=== PATIENT | male | born 1945 | race Caucasian/White ===

== ENCOUNTER 2017-04-14 23:00 | Emergency (ER) | payer BC ==
[~2017-04-14] VITALS: Ht 177.8 cm; Wt 97.3 kg
[~2017-04-14 23:00] MED LIST: AMLO-110 PO; CMD3 PO; DESM0.1T8 PO; DUTA0.5C PO; LEVO75TA5 PO; MNC50 PO; OLAN-80 PO; PRD/1 PO; TNR25 PO
[2017-04-14] MEDS ORDERED: SODIUM CHLORIDE 0.9% 1000ML 1,000 ML IV STA (23:25)
[2017-04-14] MEDS ORDERED: ONDANSETRON INJ 2 MG/ML 2 ML VIAL IV STA (23:25)
--- NOTE | 2017-04-14 23:25 | EMERGENCY ROOM VISIT NOTE ---
History Report prepared by Stanley: Bob Genao Under the Supervision of: Dr. Giorgi Leblanc D.O. First contact with patient: 23:16 Chief Complaint: NAUSEA Stated Complaint: NAUSEA- WEAKNESS History of Present Illness The patient is a 71 year old male who presents to the Emergency Room with complaints of persistent nausea since 0400 this morning. The patient started vomiting and having diarrhea around 0630. He had about 4-5 episodes of diarrhea. The patient became so weak he had to sit down on the floor. He did not pass out, fall, or injure himself. The patient is still feeling very generally weak. The patient does not have any sick contacts. He denies recent travel. The patient is currently on antibiotics. He had Minocycline and Tetracycline at 0300 this morning. Source of History: patient Onset: 0400 this morning Position: other (GI) Quality: other (nausea) Timing: other (persistent) Associated Symptoms: + diarrhea, + vomiting, + weakness Review of Systems See HPI for pertinent positives and negatives. A total of ten systems were reviewed and were otherwise negative. Past Medical & Surgical Medical Problems: (1) Anxiety State Nos (2) Asthma (3) Asthma, Unspecified (4) Atrial fibrillation (5) Cyst Of Kidney, Acquired (6) Diabetes insipidus (7) Dysthymic Disorder (8) granulomatous erhlichisosis (9) Hypertension Nos (10) Irritable Colon (11) Left leg DVT (12) Lyme disease (13) Pituitary dysfunction (14) Status post stereotactic radiosurgery Surgical Problems: (1) History of nasal surgery Family History Cancer Diabetes mellitus GRANDMOTHER Hypertension Lung disease Social History Smoking Status: Never Smoker Alcohol Use: none Drug Use: none Marital Status: Housing Status: lives with family Occupation Status: retired Current/Historical Medications Scheduled Amlodipine (Norvasc), 0.5 TAB PO DAILY Apixaban (Eliquis), 2.5 MG PO BID Atenolol (Tenormin), 6.25 MG PO DAILY Calcitriol (Rocaltrol Cap), 0.25 MCG PO DAILY Calcium Carbonate-Vitamin D (Calcium + D3 600-200 mg-Unit), 1 TAB PO DAILY Desmopressin Acetate (Desmopressin Acetate), 0.25 TAB PO HS Dutasteride (Avodart), 0.5 MG PO DAILY Levothyroxine Sodium (Levothyroxine Sodium), 75 MCG PO DAILY Minocycline HCl (Minocycline HCl), 50 MG PO HS Olanzapine (Zyprexa), 0.6 MG PO HS Prednisone (Prednisone), 5 MG PO DAILY Probiotic Product (Probiotic), 1 CAP PO DAILY Tetracycline (Sumycin), 250 MG PO HS Allergies Coded Allergies: Ibuprofen (Verified Allergy, Mild, flushed, itchy, 04/23/16) Physical Exam Vital Signs Date Time Temp Pulse Resp B/P Pulse Ox O2 Delivery O2 Flow Rate FiO2 04/15/17 01:52 37.4 74 18 131/63 97 Room Air 04/14/17 23:38 97 Room Air 04/14/17 23:14 37.5 100 20 99/66 96 Room Air Physical Exam GENERAL: Awake, alert, well-appearing, in no distress HENT: Normocephalic, atraumatic. Oropharynx unremarkable. EYES: Normal conjunctiva. Sclera non-icteric. NECK: Supple. No nuchal rigidity. FROM. No JVD. RESPIRATORY: Clear to auscultation. CARDIAC: Regular rate, normal rhythm. Extremities warm and well perfused. Pulses equal. ABDOMEN: Soft, non-distended. No tenderness to palpation. No rebound or guarding. Small umbilical hernia. RECTAL: Deferred. MUSCULOSKELETAL: Chest examination reveals no tenderness. The back is symmetrical on inspection without obvious abnormality. There is no CVA tenderness to palpation. No joint edema. LOWER EXTREMITIES: Calves are equal size bilaterally and non-tender. No edema. No discoloration. NEURO: Normal sensorium. No sensory or motor deficits noted. SKIN: No rash or jaundice noted. Medical Decision & Procedures Laboratory Results 04/14/17 23:49 Red Blood Count 5.22, Mean Corpuscular Volume 91.8, Mean Corpuscular Hemoglobin 30.7, Mean Corpuscular Hemoglobin Concent 33.4, Mean Platelet Volume 11.3, Neutrophils (%) (Auto) 90.0, Lymphocytes (%) (Auto) 2.2, Monocytes (%) (Auto) 7.4, Eosinophils (%) (Auto) 0.0, Basophils (%) (Auto) 0.1, Neutrophils # (Auto) 11.63, Lymphocytes # (Auto) 0.28, Monocytes # (Auto) 0.95, Eosinophils # (Auto) 0.00, Basophils # (Auto) 0.01 04/14/17 23:49 Test 04/14/17 23:49 White Blood Count 12.91 K/uL (4.8-10.8) Red Blood Count 5.22 M/uL (4.7-6.1) Hemoglobin 16.0 g/dL (14.0-18.0) Hematocrit 47.9 % (42-52) Mean Corpuscular Volume 91.8 fL (80-100) Mean Corpuscular Hemoglobin 30.7 pg (25-34) Mean Corpuscular Hemoglobin Concent 33.4 g/dl (32-36) Platelet Count 219 K/uL (130-400) Mean Platelet Volume 11.3 fL (7.4-10.4) Neutrophils (%) (Auto) 90.0 % Lymphocytes (%) (Auto) 2.2 % Monocytes (%) (Auto) 7.4 % Eosinophils (%) (Auto) 0.0 % Basophils (%) (Auto) 0.1 % Neutrophils # (Auto) 11.63 K/uL (1.4-6.5) Lymphocytes # (Auto) 0.28 K/uL (1.2-3.4) Monocytes # (Auto) 0.95 K/uL (0.11-0.59) Eosinophils # (Auto) 0.00 K/uL (0-0.5) Basophils # (Auto) 0.01 K/uL (0-0.2) RDW Standard Deviation 44.1 fL (36.4-46.3) RDW Coefficient of Variation 13.1 % (11.5-14.5) Immature Granulocyte % (Auto) 0.3 % Immature Granulocyte # (Auto) 0.04 K/uL (0.00-0.02) Anion Gap 9.0 mmol/L (3-11) Est Creatinine Clear Calc Drug Dose 47.3 ml/min Estimated GFR () 46.3 Estimated GFR (Non- 40.0 BUN/Creatinine Ratio 12.7 (10-20) Calcium Level 8.3 mg/dl (8.5-10.1) Magnesium Level 1.9 mg/dl (1.8-2.4) Total Bilirubin 0.8 mg/dl (0.2-1) Direct Bilirubin 0.2 mg/dl (0-0.2) Aspartate Amino Transf (AST/SGOT) 25 U/L (15-37) Alanine Aminotransferase (ALT/SGPT) 43 U/L (12-78) Alkaline Phosphatase 111 U/L (45-117) Total Protein 7.0 gm/dl (6.4-8.2) Albumin 3.1 gm/dl (3.4-5.0) Lipase 236 U/L (73-393) Laboratory results reviewed by me Medications Administered Medications (Trade) Dose Ordered Sig/Alexia Route Start Time Stop Time Status Last Admin Dose Admin Sodium Chloride (Nss 1000ml) 1,000 ml @ 999 mls/hr Q1H1M STAT IV 04/14/17 23:25 04/15/17 00:25 DC 04/14/17 23:25 999 MLS/HR Ondansetron HCl (Zofran Inj) 4 mg NOW STAT IV 04/14/17 23:25 04/14/17 23:27 DC 04/14/17 23:25 4 MG Ondansetron HCl 4 mg 4 mg NOW STAT IV 04/15/17 01:25 04/15/17 01:27 DC 04/15/17 01:36 4 MG Sodium Chloride (Nss 1000ml) 1,000 ml @ 999 mls/hr Q1H1M STAT IV 04/15/17 01:25 04/15/17 02:25 04/15/17 01:36 999 MLS/HR ECG Indication: nausea Rate (beats per minute): 85 Rhythm: normal sinus Findings: no acute ischemic change, other (normal intervals, normal axis) ED Course 2320: The patient was evaluated in room C9. A complete history and physical exam was performed. 2325: NSS 1000 ml @ 999 mls/hr, Zofran 4 mg IV. 0123: The patient is feeling better, currently in no distress. He will get another liter of fluid and some Zofran. 0125: Zofran 4 mg IV, NSS 1000 ml @ 999 mls/hr. 0155: I reevaluated the patient. Discussed results and discharge instructions: He verbalized understanding and agreement. The patient is ready for discharge. Medical Decision Differential diagnosis includes gastroenteritis, colitis, metabolic derangement , dehydration. Resting in no distress, is much improved on repeat examination of discussed the evaluation with the patient patient's at bedside. Impression Primary Impression: Vomiting and diarrhea Scribe Attestation The scribe's documentation has been prepared under my direction and personally reviewed by me in its entirety. I confirm that the note above accurately reflects all work, treatment, procedures, and medical decision making performed by me. Departure Information Dispostion Home / Self-Care Prescriptions Ondasetron Odt (ZOFRAN ODT) 4 Mg Tab 4 MG SL Q6H for Nausea, #6 TAB Prov: Giorgi Leblanc, DO 04/15/17 Referrals Bravo Rosenbaum III, M.D. (PCP) Forms HOME CARE DOCUMENTATION FORM, IMPORTANT VISIT INFORMATION Patient Instructions ED Nausea Vomiting, My [facility]
[2017-04-14 23:38] VITALS: O2SAT 97; Ht 177.8 cm; Wt 97.3 kg
[2017-04-14] MEDS ORDERED: TETR250C3 PO (23:48)
[2017-04-14] MEDS ORDERED: PRED-301 PO (23:57)
[2017-04-14] MEDS ORDERED: APIX1TAB PO (23:59)
[2017-04-15] MEDS ORDERED: CALC0.2510 PO
[2017-04-15] MEDS ORDERED: ATEN-173 PO (00:02)
[2017-04-15] MEDS ORDERED: CALC-388 PO (00:07)
[2017-04-15 00:08] LABS: BASO % 0.1 %; BASO ABS # 0.01 K/uL (0-0.2); COMPLETE YES; HEMATOCRIT 47.9 % (42-52); IG% 0.3 %; LYMPH % 2.2 %; LYMPH ABS # 0.28 K/uL (1.2-3.4); MEAN CELL VOLUME 91.8 fL (80-100); MEAN CORPUSCULAR HEMOGLOBIN 30.7 pg (25-34); MEAN CORPUSCULAR HGB CONC 33.4 g/dl (32-36); MEAN PLATELET VOLUME 11.3 fL (7.4-10.4); MONO % 7.4 %; PLATELET COUNT 219 K/uL (130-400); RED BLOOD COUNT 5.22 M/uL (4.7-6.1); WHITE BLOOD COUNT 12.91 K/uL (4.8-10.8)
[2017-04-15] MEDS ORDERED: MISCCAP80 PO (00:08)
[2017-04-15 00:32] LABS: BUN/CREATININE RATIO 12.7 (10-20); CALCIUM 8.3 mg/dl (8.5-10.1); CREATININE 1.7 mg/dl (0.60-1.40); MAGNESIUM 1.9 mg/dl (1.8-2.4)
[2017-04-15] MEDS ORDERED: ONDANSETRON INJ 2 MG/ML 2 ML VIAL IV STA (01:25)
[2017-04-15] MEDS ORDERED: SODIUM CHLORIDE 0.9% 1000ML 1,000 ML IV STA (01:25)
[2017-04-15 01:52] VITALS: TEMP 37.4
[2017-04-15] MEDS ORDERED: ONDA4TAB10 SL (02:16)
[2017-04-15 02:20] VITALS: BP 124/62; PULSE 72; O2SAT 98
[2017-06-24] MEDS ORDERED: ASPEC81 PO (10:19)
[2017-06-24] MEDS ORDERED: CRS10 PO (10:19)
[2017-06-24] MEDS ORDERED: TPRSR25 PO (10:19)
[2017-06-24] MEDS ORDERED: PLV75 PO (10:19)
== END 2017-04-15 02:20 | disposition home or self-care (01) ==
LOC: C.EDB 23:01 → C.EDA 04-15 02:20
DX: R11.10 Vomiting, unspecified (principal); R19.7 Diarrhea, unspecified; F41.9 Anxiety disorder, unspecified; J45.909 Unspecified asthma, uncomplicated; I48.91 Unspecified atrial fibrillation; E23.2 Diabetes insipidus; I10 Essential (primary) hypertension; Z86.718 Personal history of other venous thrombosis and embolism; Z80.9 Family history of malignant neoplasm, unspecified; Z83.3 Family history of diabetes mellitus; Z82.49 Family history of ischemic heart disease and other diseases of the circulatory system; Z83.6 Family history of other diseases of the respiratory system; Z79.52 Long term (current) use of systemic steroids; Z79.899 Other long term (current) drug therapy

== ENCOUNTER 2017-06-22 03:43 | Inpatient (IN) | payer BC, OTHER ==
[~2017-06-22] VITALS: Ht 177.8 cm; Wt 97.3 kg
[~2017-06-22 03:43] MED LIST changes: +APIX1TAB PO; +ATEN-173 PO; +CALC-388 PO; +CALC0.2510 PO; -CMD3 PO; +MISCCAP80 PO; +ONDA4TAB10 SL; -PRD/1 PO; +PRED-301 PO; +TETR250C3 PO; -TNR25 PO
--- NOTE | 2017-06-22 03:58 | EMERGENCY ROOM VISIT NOTE ---
History Report prepared by Stanley: Kenji Dawn Under the Supervision of: Dr. Alayna North D.O. First contact with patient: 03:48 Chief Complaint: CARDIAC ASSESSMENT Stated Complaint: CARDIAC ASSESSMENT History of Present Illness The patient is a 71 year old male who presents to the Emergency Room with complaints of chest pain that began at midnight and worsened around 0320 this morning, 30 minutes prior to arrival. The pains are resolved at this time. He received nitroglycerin via EMS prior to arrival, which alleviated the patient's symptoms. He no longer has any chest discomfort at this time. He denies any personal history of heart attack, or any history of heart problems. Source of History: patient Onset: 30 minutes [employer] Position: chest Timing: resolved Modifying Factors (Relieving): other (Nitroglycerin) Review of Systems See HPI for pertinent positives & negatives. A total of 10 systems reviewed and were otherwise negative. Past Medical & Surgical Medical Problems: (1) Anxiety State Nos (2) Asthma (3) Asthma, Unspecified (4) Atrial fibrillation (5) Chest pain (6) Cyst Of Kidney, Acquired (7) Diabetes insipidus (8) Dysthymic Disorder (9) granulomatous erhlichisosis (10) Hypertension Nos (11) Irritable Colon (12) Left leg DVT (13) Lyme disease (14) Pituitary dysfunction (15) Status post stereotactic radiosurgery Surgical Problems: (1) History of nasal surgery Ehrliciosis Family History Cancer Diabetes mellitus GRANDMOTHER Hypertension Lung disease Social History Smoking Status: Never Smoker Alcohol Use: none Drug Use: none Marital Status: Housing Status: lives with family Occupation Status: retired Current/Historical Medications Scheduled Amlodipine (Norvasc), 0.5 TAB PO DAILY Apixaban (Eliquis), 2.5 MG PO BID Atenolol (Tenormin), 6.25 MG PO DAILY Calcitriol (Rocaltrol Cap), 0.25 MCG PO DAILY Calcium Carbonate-Vitamin D (Calcium + D3 600-200 mg-Unit), 1 TAB PO DAILY Desmopressin Acetate (Desmopressin Acetate), 0.25 TAB PO HS Dutasteride (Avodart), 0.5 MG PO DAILY Levothyroxine Sodium (Levothyroxine Sodium), 75 MCG PO DAILY Minocycline HCl (Minocycline HCl), 50 MG PO HS Olanzapine (Zyprexa), 0.6 MG PO HS Prednisone (Prednisone), 5 MG PO DAILY Probiotic Product (Probiotic), 1 CAP PO DAILY Tetracycline (Sumycin), 250 MG PO HS Allergies Coded Allergies: Ibuprofen (Verified Allergy, Mild, flushed, itchy, 06/22/17) Physical Exam Vital Signs Date Time Temp Pulse Resp B/P (MAP) Pulse Ox O2 Delivery O2 Flow Rate FiO2 06/22/17 05:48 53 17 97 06/22/17 05:43 52 15 98 06/22/17 05:31 118/64 06/22/17 05:28 54 16 97 06/22/17 05:13 58 15 98 06/22/17 05:01 106/60 06/22/17 04:58 58 15 97 06/22/17 04:53 60 14 97 06/22/17 04:43 64 18 96 06/22/17 04:33 63 20 112/61 95 06/22/17 04:28 62 18 98 06/22/17 04:13 66 18 98 06/22/17 04:05 36.9 67 19 121/73 98 Room Air 06/22/17 04:01 121/73 06/22/17 03:58 71 23 100 06/22/17 03:53 70 18 98 06/22/17 03:52 69 06/22/17 03:49 124/75 Physical Exam HEENT: Head - normocephalic and atraumatic Pupils are equal, round, and reactive to light. Extraocular eye muscles are intact, and sclera are anicteric. Nose - moist nasal mucosa without discharge. Mouth - moist buccal mucosa. Oropharynx is nonerythematous and there is no tonsillar exudate or edema noted. Neck: Supple; no JVD, nuchal rigidity, cervical lymphadenopathy, or auscultated bruits. Heart: Regular rate and rhythm. There is a normal S1 and S2 with no murmurs, clicks, or gallops appreciated. Lungs: Clear to auscultation bilaterally with no wheezes, rales, or rhonchi. Abdomen: Soft, completely nontender, nondistended, with good bowel sounds. There are no palpable pulsatile masses or hepatosplenomegaly. There is no guarding, rigidity, or rebound noted. Extremities: No evidence of cyanosis, clubbing, or edema. There are easily palpable peripheral pulses. Skin: warm and dry with good turgor and no rashes. Medical Decision & Procedures ER Provider Diagnostic Interpretation: Radiology results as stated below per my review and the radiologist's interpretation: CHEST X-RAY PORTABLE: Elevated left hemidiaphragm. There is curvature of the spine. No obvious infiltrate. Unchanged from 03/2016. Laboratory Results 06/22/17 03:35 Red Blood Count 5.34, Mean Corpuscular Volume 91.9, Mean Corpuscular Hemoglobin 30.1, Mean Corpuscular Hemoglobin Concent 32.8, Mean Platelet Volume 11.3, Neutrophils (%) (Auto) 80.3, Lymphocytes (%) (Auto) 11.3, Monocytes (%) (Auto) 6.6, Eosinophils (%) (Auto) 1.1, Basophils (%) (Auto) 0.4, Neutrophils # (Auto) 9.79, Lymphocytes # (Auto) 1.38, Monocytes # (Auto) 0.81, Eosinophils # (Auto) 0.13, Basophils # (Auto) 0.05 06/22/17 04:00 Test 06/22/17 03:35 06/22/17 04:00 White Blood Count 12.20 K/uL (4.8-10.8) Red Blood Count 5.34 M/uL (4.7-6.1) Hemoglobin 16.1 g/dL (14.0-18.0) Hematocrit 49.1 % (42-52) Mean Corpuscular Volume 91.9 fL (80-100) Mean Corpuscular Hemoglobin 30.1 pg (25-34) Mean Corpuscular Hemoglobin Concent 32.8 g/dl (32-36) Platelet Count 263 K/uL (130-400) Mean Platelet Volume 11.3 fL (7.4-10.4) Neutrophils (%) (Auto) 80.3 % Lymphocytes (%) (Auto) 11.3 % Monocytes (%) (Auto) 6.6 % Eosinophils (%) (Auto) 1.1 % Basophils (%) (Auto) 0.4 % Neutrophils # (Auto) 9.79 K/uL (1.4-6.5) Lymphocytes # (Auto) 1.38 K/uL (1.2-3.4) Monocytes # (Auto) 0.81 K/uL (0.11-0.59) Eosinophils # (Auto) 0.13 K/uL (0-0.5) Basophils # (Auto) 0.05 K/uL (0-0.2) RDW Standard Deviation 43.8 fL (36.4-46.3) RDW Coefficient of Variation 13.0 % (11.5-14.5) Immature Granulocyte % (Auto) 0.3 % Immature Granulocyte # (Auto) 0.04 K/uL (0.00-0.02) Prothrombin Time 10.4 SECONDS (9.0-12.0) Prothromb Time International Ratio 1.0 (0.9-1.1) Activated Partial Thromboplast Time 27.4 SECONDS (21.0-31.0) Partial Thromboplastin Ratio 1.1 Anion Gap 7.0 mmol/L (3-11) Est Creatinine Clear Calc Drug Dose 48.5 ml/min Estimated GFR () 46.3 Estimated GFR (Non- 40.0 BUN/Creatinine Ratio 14.7 (10-20) Calcium Level 8.2 mg/dl (8.5-10.1) Total Bilirubin 0.3 mg/dl (0.2-1) Aspartate Amino Transf (AST/SGOT) 30 U/L (15-37) Alanine Aminotransferase (ALT/SGPT) 50 U/L (12-78) Alkaline Phosphatase 91 U/L (45-117) Total Creatine Kinase 55 U/L (39-308) Creatine Kinase MB 1.0 ng/ml (0.5-3.6) Creatine Kinase MB Ratio 1.8 (0-3.0) Troponin I 0.040 ng/ml (0-0.045) Total Protein 6.4 gm/dl (6.4-8.2) Albumin 2.9 gm/dl (3.4-5.0) Globulin 3.5 gm/dl (2.5-4.0) Albumin/Globulin Ratio 0.8 (0.9-2) Thyroid Stimulating Hormone (TSH) 0.237 uIu/ml (0.300-4.500) Laboratory results per my review. ECG Indication: chest pain Rate (beats per minute): 73 Findings: no acute ischemic change, no ectopy ED Course 0351: Past medical records reviewed. The patient was evaluated in room B2. A complete history and physical exam was performed. A twelve-lead EKG was obtained. A portable chest x-ray was obtained as described above. I did review the EKGs that were performed in the field. 0503: I reevaluated the patient at this time. He has not experienced any return of his chest pain. 0535: I discussed the case with Dr. Luigi Baig at this time. He will evaluate the patient at this time. Medical Decision The patient is a 71 year old male who presents to the Emergency Department for chest pain. Differential Diagnosis includes; Unstable angina, STEMI, n-STEMI, ACS, GERD. Laboratory Results were reviewed and show; White count of 12.2, Stable hemoglobin and hematocrit, BUN of 25, creatinine of 1.7 which is baseline, glucose of 240, TSH of 0.237, troponin of 0.040, and albumin of 2.9. This is a 71-year-old male patient who presents to emergency department after having an episode of severe chest pain. Upon EMS arrival, the patient had a twelve-lead EKG done at his house which showed anterior ST segment elevation. He was having chest pain at that time. He did receive sublingual nitroglycerin which relieved both the chest pain and the EKG changes. This is quite concerning for acute coronary syndrome. I discussed the case with the [facility] and they will evaluate for further management. Medication Reconcilliation Current Medication List: was personally reviewed by me Blood Pressure Screening Patient's blood pressure: Normal blood pressure Consults Time Called: [phone] Consulting Physician: Dr. Luigi Baig Returned Call: [phone] I discussed the case with Dr. Luigi Baig at this time. He will evaluate the patient at this time. Impression Primary Impression: Acute coronary syndrome Scribe Attestation The scribe's documentation has been prepared under my direction and personally reviewed by me in its entirety. I confirm that the note above accurately reflects all work, treatment, procedures, and medical decision making performed by me. Departure Information Dispostion Being Evaluated By Hospitalist Referrals Bravo Rosenbaum III, M.D. (PCP) Patient Instructions My [facility]
[2017-06-22 04:11] LABS: BASO % 0.4 %; BASO ABS # 0.05 K/uL (0-0.2); COMPLETE YES; EOS % 1.1 %; HEMATOCRIT 49.1 % (42-52); IG% 0.3 %; LYMPH % 11.3 %; LYMPH ABS # 1.38 K/uL (1.2-3.4); MEAN CELL VOLUME 91.9 fL (80-100); MEAN CORPUSCULAR HEMOGLOBIN 30.1 pg (25-34); MEAN CORPUSCULAR HGB CONC 32.8 g/dl (32-36); MEAN PLATELET VOLUME 11.3 fL (7.4-10.4); MONO % 6.6 %; NEUT % 80.3 %; PLATELET COUNT 263 K/uL (130-400); RED BLOOD COUNT 5.34 M/uL (4.7-6.1)
[2017-06-22 04:29] LABS: BUN/CREATININE RATIO 14.7 (10-20); CALCIUM 8.2 mg/dl (8.5-10.1); CREATININE 1.7 mg/dl (0.60-1.40); POTASSIUM 4.4 mmol/L (3.5-5.1)
[2017-06-22 04:40] LABS: ALB/GLOB RATIO 0.8 (0.9-2); CKMB/CK RATIO 1.8 (0-3.0); THYROID STIMULATING HORMONE 0.237 uIu/ml (0.300-4.500)
[2017-06-22] MEDS ORDERED: MoRPHine SULFATE 2 MG/ML CARP IV PRN (06:00)
[2017-06-22] MEDS ORDERED: ACETAMINOPHEN 325 MG TAB PO PRN (06:00)
[2017-06-22] MEDS ORDERED: ONDANSETRON INJ 2 MG/ML 2 ML VIAL IV PRN (06:00)
[2017-06-22] MEDS ORDERED: NITROGLYCERIN 0.4 MG SL PER TAB CHARGE SL PRN (06:00)
--- NOTE | 2017-06-22 06:02 | History and Physical ---
History & Physical Date & Time of Service: Jun 22, 2017 at 05:54 . Chief Complaint: chest pain . Primary Care Physician: Bravo Rosenbaum III, M.D. . History of Present Illness Source: patient, clinic records, hospital records 71 [address] by [address]. Rosenbaum for Family Medicine, Dr. Sneed for Cardiology, Dr. Leo for chronic Lyme disease. History of paroxysmal atrial fibrillation, hypertension, and other problems noted below. 2 nights prior to admission he developed chest pain after eating supper and lying down in supine position. Chest pain described as moderate substernal pressure that did not radiate. No associated palpitations, SOB, N, V, diaphoresis, etc. Pt felt that he was probably experiencing indigestion. He did not take any medications for the discomfort. Tonight around 0300 he experienced much more severe CP. CP described as substernal pressure radiating across his anterior chest, severity = 8/10. [place] nauseated. No palpitations, SOB, vomiting. [place] very weak. Called EMS. EKG by them showed anterior ST elevation and inferior ST depression. Received O2, ASA, NTG. Chest pain resolved. Repeat EKG after NTG showed resolution of ST changes. Patient brought to ED and remained pain-free after arrival. . 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 Family History Cancer Diabetes mellitus GRANDMOTHER Hypertension Lung disease Social History Smoking Status: Never Smoker Alcohol Use: none Marital Status: Housing status: lives with family Occupational Status: retired Immunizations History of Influenza Vaccine: Yes History of Pneumococcal: Yes Multi-Drug Resistant Organisms History of MDRO: No Allergies Coded Allergies: Ibuprofen (Verified Allergy, Mild, flushed, itchy, 06/22/17) Home Medications Scheduled Amlodipine (Norvasc), 2.5 MG PO HS Amoxicillin (Amoxil), 250 MG PO DAILY Apixaban (Eliquis), 1.25 MG PO BID Atenolol (Tenormin), 6.25 MG PO HS Calcitriol (Rocaltrol Cap), 0.25 MCG PO DAILY Calcium Carbonate-Vitamin D (Calcium + D3 600-200 mg-Unit), 1 TAB PO DAILY Desmopressin Acetate (Desmopressin Acetate), 0.25 TAB PO HS Dutasteride (Avodart), 0.5 MG PO DAILY Levothyroxine Sodium (Levothyroxine Sodium), 75 MCG PO DAILY Minocycline HCl (Minocycline HCl), 50 MG PO HS Olanzapine (Zyprexa), 0.625 MG PO HS Prednisone (Prednisone), 5 MG PO DAILY Probiotic Product (Probiotic), 1 CAP PO DAILY Tetracycline (Sumycin), 250 MG PO HS Review of Systems Constitutional: No fever, No weight loss Eyes: No worsening of vision, No diplopia ENT: + nasal symptoms (chronic nasal / sinus congestion), No sore throat Respiratory: No cough, No wheezing, No shortness of breath Cardiovascular: + problem reported (as noted above in HPI) Abdomen: + nausea, No pain, No vomiting, No diarrhea, No GI bleeding Musculoskeletal: No joint pain, No muscle pain Genitourinary - Male: No hematuria, No dysuria Neurologic: + problem reported (left frontal headache attributed to sinus congestion), No weakness Endocrine: + excessive urination (chronic due to DI) Hematologic / Lymphatic: No abnormal bleeding/bruising, No swollen lymph nodes Integumentary: + rash (ECM from Lyme disease resolved with treatment), No new/ changing skin lesions Physical Exam Vital Signs Date Time Temp Pulse Resp B/P (MAP) Pulse Ox O2 Delivery O2 Flow Rate FiO2 06/22/17 05:43 52 15 98 06/22/17 05:31 118/64 06/22/17 05:28 54 16 97 06/22/17 05:13 58 15 98 06/22/17 05:01 106/60 06/22/17 04:58 58 15 97 06/22/17 04:53 60 14 97 06/22/17 04:43 64 18 96 06/22/17 04:33 63 20 112/61 95 06/22/17 04:28 62 18 98 06/22/17 04:13 66 18 98 06/22/17 04:05 36.9 67 19 121/73 98 Room Air 06/22/17 04:01 121/73 06/22/17 03:58 71 23 100 06/22/17 03:53 70 18 98 06/22/17 03:52 69 06/22/17 03:49 124/75 General Appearance: WD/WN, no apparent distress Head: normocephalic, atraumatic Eyes: normal inspection, PERRL, EOMI, sclerae normal ENT: normal ENT inspection, hearing grossly normal, pharynx normal Neck: supple, no adenopathy, thyroid normal, trachea midline Respiratory/Chest: lungs clear (to A&P), no respiratory distress, no accessory muscle use Cardiovascular: regular rate, rhythm, no edema, no gallop, no JVD, no murmur, normal peripheral pulses (radial and pedal pulses intact and symmetric), + pertinent finding (carotid pulses symmetric) Abdomen/GI: normal bowel sounds, non tender, soft, no organomegaly, no pulsatile mass Extremities/Musculoskelatal: normal inspection, no calf tenderness, no pedal edema Neurologic/Psych: 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 II-XII nml as tested (PERRL, no dysarthria, no facial palsy), no motor/sensory deficits (motor upper and lower extr 5/5), alert, normal mood/affect, oriented x 3 Skin: normal color, warm/dry, no rash Lymphatic: no adenopathy (cervical) Diagnostics Laboratory Results Results Past 24 Hours Test 06/22/17 03:35 06/22/17 04:00 06/22/17 05:00 Range/Units White Blood Count 12.20 4.8-10.8 K/uL Red Blood Count 5.34 4.7-6.1 M/uL Hemoglobin 16.1 14.0-18.0 g/dL Hematocrit 49.1 42-52 % Mean Corpuscular Volume 91.9 80-100 fL Mean Corpuscular Hemoglobin 30.1 25-34 pg Mean Corpuscular Hemoglobin Concent 32.8 32-36 g/dl Platelet Count 263 130-400 K/uL Mean Platelet Volume 11.3 7.4-10.4 fL Neutrophils (%) (Auto) 80.3 % Lymphocytes (%) (Auto) 11.3 % Monocytes (%) (Auto) 6.6 % Eosinophils (%) (Auto) 1.1 % Basophils (%) (Auto) 0.4 % Neutrophils # (Auto) 9.79 1.4-6.5 K/uL Lymphocytes # (Auto) 1.38 1.2-3.4 K/uL Monocytes # (Auto) 0.81 0.11-0.59 K/uL Eosinophils # (Auto) 0.13 0-0.5 K/uL Basophils # (Auto) 0.05 0-0.2 K/uL RDW Standard Deviation 43.8 36.4-46.3 fL RDW Coefficient of Variation 13.0 11.5-14.5 % Immature Granulocyte % (Auto) 0.3 % Immature Granulocyte # (Auto) 0.04 0.00-0.02 K/uL Sodium Level 141 136-145 mmol/L Potassium Level 4.4 3.5-5.1 mmol/L Chloride Level 109 98-107 mmol/L Carbon Dioxide Level 25 21-32 mmol/L Anion Gap 7.0 3-11 mmol/L Blood Urea Nitrogen 25 7-18 mg/dl Creatinine 1.70 0.60-1.40 mg/dl Est Creatinine Clear Calc Drug Dose 48.5 ml/min Estimated GFR () 46.3 Estimated GFR (Non- 40.0 BUN/Creatinine Ratio 14.7 10-20 Random Glucose 240 70-99 mg/dl Calcium Level 8.2 8.5-10.1 mg/dl Total Bilirubin 0.3 0.2-1 mg/dl Aspartate Amino Transf (AST/SGOT) 30 15-37 U/L Alanine Aminotransferase (ALT/SGPT) 50 12-78 U/L Alkaline Phosphatase 91 45-117 U/L Total Creatine Kinase 55 39-308 U/L Creatine Kinase MB 1.0 0.5-3.6 ng/ml Creatine Kinase MB Ratio 1.8 0-3.0 Troponin I 0.040 0-0.045 ng/ml Total Protein 6.4 6.4-8.2 gm/dl Albumin 2.9 3.4-5.0 gm/dl Globulin 3.5 2.5-4.0 gm/dl Albumin/Globulin Ratio 0.8 0.9-2 Thyroid Stimulating Hormone (TSH) 0.237 0.300-4.500 uIu/ml Diagnostic Radiology Portable chest x-ray reviewed by the undersigned demonstrates borderline cardiomegaly, elevated left hemidiaphragm (noted in 2014), no acute changes. Formal report by Radiology pending. . EKG EKG performed by EMS at 032 before NTG reviewed and demonstrated NSR at 68 / minute, [address] depression III, aVF and 1-[address] elevation V1-V2. EKG performed by EMS at 033 after NTG reviewed and demonstrated baseline artifact, NSR at 72 / minute, resolution of inferior and anterior ST changes.. . EKG performed in ED at 034 reviewed and demonstrated NSR at 73 / minute, no significant ST deviation, biphasic T-waves V2. . Impression Assessment and Plan CHEST PAIN Clinically, chest pain over last 2 days could be of cardiac or GI etiology. Episode this morning, however, was severe, associated with EKG changes, and relieved by NTG. Pain-free in ED. First troponin negative. Check repeat cardiac markers @ 4 hours with lipid profile. Aspirin administered by EMS. Continue atenolol with hold parameters. Check rest echo. Consult Cardiology. PAROXYSMAL ATRIAL FIB Currently in NSR. Continue atenolol and apixaban- dosing per Cardiology. HYPERTENSION Continue atenolol and amlodipine. PANHYPOPIT Hypopituitarism with adrenal insufficiency, hypothyroidism, DI. Continue prednisone, levothyroxine, DDAVP. Parenteral steroids PRN for hemodynamic instability or major procedures. HYPERGLYCEMIA Random blood sugar 240 in ED. On low dose prednisone for panhypopit / adrenal insufficiency. No hx of DM. Check Hgb A1C. Check f/u FBS in 24 hours. Follow. CHRONIC LYME DISEASE / EHRLICHIOSIS Continue usual regimen as recommended. BPH Continue dutasteride. VTE PROPHYLAXIS Continue apixaban. RESUSCITATION STATUS Discussed with patient. He has a living will. He would like resuscitation attempted in the event of a cardiopulmonary arrest if there is a reasonable chance of a meaningful recovery, but does not want prolonged extraordinary measures if prognosis is poor. Therefore, code status = "Level 1" (full resuscitation). DISPOSITION Admit to Telemetry Unit. Expected discharge to home. Family Medicine follow-up with Dr. Rosenbaum. Cardiology follow-up with Dr. Sneed. . VTE Prophylaxis VTE Risk Assessment Done? Y/N: Yes Risk Level: Moderate Given or contraindicated: Other Anticoagulation (apixaban)
[2017-06-22 06:41] LABS: PARTIAL THROMBOPLASTIN RATIO 1.1; PROTHROMBIN TIME (PATIENT) 10.4 SECONDS (9.0-12.0)
[2017-06-22 07:00] VITALS: BP 136/76; PULSE 59; TEMP 36.7; O2SAT 98; BMI 31.1
--- NOTE | 2017-06-22 07:15 | DIAGNOSTIC IMAGING REPORT ---
SINGLE VIEW CHEST CLINICAL HISTORY: Atypical chest pain. FINDINGS: An AP, portable, upright chest radiograph is compared to study dated 04/23/2016. The examination is degraded by portable technique and patient rotation. The cardiomediastinal silhouette is unremarkable. There is chronic elevation of left hemidiaphragm with bibasilar atelectasis. Chronic interstitial thickening is unchanged. No airspace consolidation is seen typical for pneumonia and there is no large pleural effusion. No pneumothorax is seen. The skeletal structures are osteopenic. The bony thorax is grossly intact. IMPRESSION: No acute cardiopulmonary abnormality. Electronically signed by: Ben Mccauley M.D. 06/22/2017 7:13 AM Dictated Date/Time: 06/22/2017 7:13 AM
[2017-06-22] MEDS ORDERED: HEPARIN 25000 UNIT/ D5W 500 ML (PHARMACY PREPARED) IV PRN ×2 (07:45)
[2017-06-22] MEDS ORDERED: HEPARIN IV BOLUS 4,000 UNIT in SYRINGE 0 ML IV SCH (07:45)
[2017-06-22] MEDS ORDERED: AMOX250C3 PO (08:22)
[2017-06-22] MEDS: NITROGLYCERIN OINT 2% 1GM PACKET EXT SCH ×4 (08:33→23:23)
[2017-06-22] MEDS ORDERED: APIXABAN 2.5 MG TAB PO SCH (09:00)
[2017-06-22 09:15] LABS: CHOLESTEROL/HDL RATIO 3.8
[2017-06-22 09:24] LABS: CKMB/CK RATIO 3.4 (0-3.0)
[2017-06-22 09:28] LABS: ESTIMATED AVERAGE GLUCOSE 154 mg/dl; HA1C FLAG Normal (Normal)
--- NOTE | 2017-06-22 11:07 | CARDIOLOGY CONSULTATION ---
DATE OF CONSULTATION: 06/22/2017 REFERRING: Dr. Meyers. INDICATION: Acute chest pain. PRIMARY CARE PHYSICIAN: Dr. Rosenbaum. PRIMARY EVICTION SPECIALIST: Dr. Demetrius Sneed. HISTORY OF PRESENT ILLNESS: The patient is a complex 71-year-old male whose history is notable for: 1. Paroxysmal atrial fibrillation, controlled in sinus rhythm. 2. Chronic stage III renal insufficiency. 3. Panhypopituitarism. 4. Hypertension. 5. History of sleep apnea. 6. Chronic Lyme disease. The patient is referred now noting an episode of severe indigestion a day prior to admission. Evening of admission, he awakened from sleep to take usual nighttime medications when he began experiencing symptoms of severe epigastric substernal pressure pain radiating to the chest, 8/10 in severity, with associated nausea. Noted no shortness of breath or diaphoresis, but felt very weak. EMS was summoned. EKG in transport unit demonstrated dynamic ST changes across the anterior precordium. Received aspirin, oxygen and sublingual nitroglycerin with resolve of pain. He had just taken his Eliquis prior to that presentation. This morning he is now pain free. Initial cardiac enzymes were notable for abnormal upper limits of normal troponin. EKG this morning is normal post-resolve of symptoms. He notes no prior history of myocardial infarction, angina or congestive heart failure. Notes no sense of tachypalpitations. Has felt more fatigued and shortness of breath over the last 1-2 years, he has been very sedentary. Notes no rash or arthritic complaint. Notes no headache or visual changes. He has been taking usual constellation of medications as noted. The patient is using subtherapeutic dosing of Eliquis for stroke prevention. REVIEW OF SYSTEMS: Otherwise negative. ALLERGIES: IBUPROFEN. MEDICATIONS: Prior to hospitalization were amlodipine 2.5 mg one-half tablet twice per day, amoxicillin 250 mg per day, apixaban one 2.5 mg b.i.d., atenolol 25 mg one-quarter tablet daily, Rocaltrol 0.25 mcg every day, calcium with vitamin D, desmopressin 0.25 mg at bedtime, Avodart 0.5 mg every day, levothyroxine 75 mcg per day, minocycline 50 mg at bedtime, Zyprexa 2.5 mg one-quarter tablet p.o. daily, prednisone 5 mg per day, probiotic 1 capsule daily, tetracycline 250 mg at bedtime. PAST SURGICAL HISTORY: Notable for sinus surgeries with ethmoidectomy and sphenoidectomy, past prostate biopsy. FAMILY HISTORY: Nonspecific for cardiac disease. There is a history of atrial fibrillation in uncle. SOCIAL HISTORY: The patient resides in [place]. 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 He is a nonsmoker, nondrinker. He has been very sedentary as noted. PHYSICAL EXAMINATION: VITAL SIGNS: Heart rate is 58, blood pressure is 136/76. HEENT: Normocephalic, atraumatic. Nares without discharge. Throat is clear. NECK: Supple without thyromegaly, lymphadenopathy, JVD or bruit. LUNGS: Clear to auscultation. CARDIOVASCULAR: Regular with normal S1, S2. There is no murmur, gallop or rub. ABDOMEN: Soft, nontender. EXTREMITIES: Without cyanosis or clubbing. There is no peripheral edema. There is no palpable cord or Homans sign. There are moderate superficial varicosities. NEUROLOGIC: The patient is alert and answering questions appropriately. LABORATORY DATA: Initial white cell count was 12.2, hemoglobin 16.1. Sodium is 141, potassium is 4.4, chloride is 109, bicarbonate is 25, BUN is 25, creatinine is 1.7. Calcium level is 8.2. Initial troponin was 0.04. TSH was 0.237. Repeat troponin was 0.46 with normal CK and MB fractions. Cholesterol was 195, LDL 121, HDL 52. EKG this morning demonstrates sinus rhythm with normal tracing. Echocardiogram is pending. IMPRESSION: A 71-year-old male developed severe substernal chest pressure pain last evening, relieved by nitroglycerin promptly in the ambulance en route with dynamic hyperacute ST-segment changes on EKG done in ambulance, now resolved. Troponins are mildly elevated. I discussed initial approach. Given second troponin elevation, we will avoid stress testing and proceed directly to diagnostic cardiac catheterization in a.m., the patient having received apixaban last evening. The patient is agreeable to plan. If symptoms would return, would restart anticoagulation with IV heparin. The patient will be kept n.p.o. after midnight. Current medications continued as previously prescribed. Findings and recommendations discussed in detail with the patient. MARK
[2017-06-22 12:27] VITALS: BP 138/69; PULSE 74; TEMP 36.9; O2SAT 96
[2017-06-22] MEDS: AMOXICILLIN 250 MG CAP PO SCH (12:31)
--- NOTE | 2017-06-22 12:40 | ECHOCARDIOGRAM REPORT ---
*NOTICE TO RECEIVING [employer] This information is strictly Confidential and protected under [place] law. [place] law prohibits you from making any further disclosure of this information unless further disclosure is expressly permitted by the written consent of the person to whom it pertains or is authorized by law. A general authorization for the release of medical or other information is not sufficient for this purpose. Hospital accepts no responsibility if the information is made available to any other person, INCLUDING THE PATIENT. Interpretation Summary * Name: RADHA VELÁSQUEZ JR Study Date: 06/22/2017 08:35 AM BP: 110/67 mmHg * Patient Location: C.2T\S\S236\S\1 HR: 57 * : 1945 (M/d/yyyy) Gender: Male Height: 70 in * Age: 71 yrs Ethnicity: CA Weight: 226 lb * Ordering Physician: Bravo Meyers * Referring Physician: Self, Referred * Performed By: Avelina Burger RDCS * * Reason For Study: Chest pain * BSA: 2.2 m2 * -- Conclusions -- * The left ventricle is normal in size. * There is borderline concentric left ventricular hypertrophy. * Left ventricular systolic function is normal. * The left ventricular wall motion is normal. * Ejection Fraction = 65-70%. * Trace aortic regurgitation. * There is trace mitral regurgitation. * There is trace tricuspid regurgitation. * Doppler findings do not suggest pulmonary hypertension. * There is no pericardial effusion. Procedure Details * A complete two-dimensional transthoracic echocardiogram was performed (2D, M-mode, Doppler and color flow Doppler). Left Ventricle * The left ventricle is normal in size. * There is borderline concentric left ventricular hypertrophy. * Left ventricular systolic function is normal. * Ejection Fraction = 65-70%. * The left ventricular wall motion is normal. Right Ventricle * The right ventricle is normal in size and function. Atria * The left atrial size is normal. * Right atrial size is normal. * No ASD detected; PFO is not assessed. Mitral Valve * The mitral valve anatomy is normal. * There is no mitral valve stenosis. * There is trace mitral regurgitation. Tricuspid Valve * The tricuspid valve anatomy is normal. * There is no tricuspid stenosis. * There is trace tricuspid regurgitation. * Doppler findings do not suggest pulmonary hypertension. Aortic Valve * The aortic valve is trileaflet. * Aortic valve sclerosis mild, without significant aortic valvular stenosis. * No hemodynamically significant valvular aortic stenosis. * Trace aortic regurgitation. Pulmonic Valve * The pulmonic valve is not well visualized. Great Vessels * The aortic root is normal size. Pericardium/Pleural * There is no pericardial effusion. Great Vessels * Normal inferior vena cava diameter and respiratory variation suggests normal central venous pressure. MMode 2D Measurements and Calculations IVSd 0.78 cm LVIDd 3.6 cm LVIDs 2.1 cm LVPWd 0.88 cm IVS/LVPW 0.89 FS 41.1 % EDV(Teich) 54.5 ml ESV(Teich) 14.8 ml EF(Teich) 72.8 % EDV(cubed) 46.8 ml ESV(cubed) 9.6 ml EF(cubed) 79.5 % LV mass(C)d 83.1 grams LV mass(C)dI 37.8 grams/m\S\2 SV(Teich) 39.7 ml SI(Teich) 18.1 ml/m\S\2 SV(cubed) 37.2 ml SI(cubed) 16.9 ml/m\S\2 Ao root diam 3.3 cm Ao root area 8.7 cm\S\2 ACS 1.9 cm LA dimension 2.5 cm asc Aorta Diam 3.4 cm LA/Ao 0.76 LVOT diam 2.0 cm LVOT area 3.1 cm\S\2 LVAd ap4 21.3 cm\S\2 LVLd ap4 7.3 cm EDV(MOD-sp4) 49.7 ml EDV(sp4-el) 52.4 ml LVAs ap4 10.0 cm\S\2 LVLs ap4 5.4 cm ESV(MOD-sp4) 14.5 ml ESV(sp4-el) 15.5 ml EF(MOD-sp4) 70.8 % EF(sp4-el) 70.5 % LVAd ap2 22.4 cm\S\2 LVLd ap2 7.9 cm EDV(MOD-sp2) 54.7 ml EDV(sp2-el) 53.9 ml LVAs ap2 10.6 cm\S\2 LVLs ap2 6.2 cm ESV(MOD-sp2) 15.8 ml ESV(sp2-el) 15.4 ml EF(MOD-sp2) 71.1 % EF(sp2-el) 71.4 % LVLd %diff 7.1 % EDV(MOD-bp) 53.4 ml LVLs %diff 12.8 % ESV(MOD-bp) 15.8 ml EF(MOD-bp) 70.4 % SV(MOD-sp4) 35.2 ml SI(MOD-sp4) 16.0 ml/m\S\2 SV(MOD-sp2) 38.9 ml SI(MOD-sp2) 17.7 ml/m\S\2 SV(MOD-bp) 37.6 ml SI(MOD-bp) 17.1 ml/m\S\2 SV(sp4-el) 37.0 ml SI(sp4-el) 16.8 ml/m\S\2 SV(sp2-el) 38.5 ml SI(sp2-el) 17.5 ml/m\S\2 Doppler Measurements and Calculations MV E max genny 87.3 cm/sec MV A max genny 71.8 cm/sec MV E/A 1.2 MV dec time 0.20 sec Ao V2 max 142.5 cm/sec Ao max PG 8.1 mmHg Ao max PG (full) 2.1 mmHg NESSA(V,A) 2.7 cm\S\2 NESSA(V,D) 2.7 cm\S\2 AI max genny 350.2 cm/sec AI max PG 49.1 mmHg AI dec slope 102.1 cm/sec\S\2 AI P1/2t 1004.6 msec LV V1 max PG 6.0 mmHg LV V1 max 122.2 cm/sec PA V2 max 95.0 cm/sec PA max PG 3.6 mmHg PA acc slope 580.3 cm/sec\S\2 PA acc time 0.12 sec TR max genny 225.3 cm/sec PA pr(Accel) 26.7 mmHg
[2017-06-22] MEDS: AVODART~ORDER AWAITING ACTION SCH ×2 (12:47→23:39)
[2017-06-22 15:30] VITALS: BP 113/73; PULSE 86; TEMP 36.7; O2SAT 94
[2017-06-22 16:35] LABS: CKMB/CK RATIO 3.9 (0-3.0)
[2017-06-22 20:00] VITALS: BP 135/75; PULSE 77; TEMP 36.6; O2SAT 97
[2017-06-22] MEDS: AMLODIPINE BESYLATE 5 MG TAB PO SCH (20:40)
--- NOTE | 2017-06-22 22:54 | Progress Note ---
Medicine Progress Note Date & Time of Visit: Jun 22, 2017 at 12:00. Subjective 71 yo M with no h/o CAD presents with chest pain, admitted for ACS rule out -no chest pain since nitro paste added -doing well overall -denies SOB or associated symptoms. Objective Last 8 Hrs Date Time Temp Pulse Resp B/P (MAP) Pulse Ox O2 Delivery O2 Flow Rate FiO2 06/22/17 16:00 Room Air 06/22/17 15:30 36.7 86 19 113/73 (86) 94 Room Air 06/22/17 12:27 36.9 74 18 138/69 (92) 96 06/22/17 12:00 Room Air Physical Exam: GEN: WNWD, in no acute distress, alert and appropriate, ambulatory HEENT: NC/AT, pupils are round, normal sclerae, MMM CARDIO: reg rate, S1/2 heard without m/g/r LUNGS: CTA bilaterally, no crackles, rales or wheezes, good diaphragmatic excursion ABD: soft, non-tender, non-distended, no rebound or guarding, +BS EXTREMITY: RP and DP palpable 2+ bilat, no LE swelling or edema, extremities are warm and well-perfused NEURO: CN 2-12 grossly intact, sensation intact throughout MUSC: 5/5 strength throughout, no gross focal deficits SKIN: warm and dry Laboratory Results: 06/22/17 03:35 Red Blood Count 5.34, Mean Corpuscular Volume 91.9, Mean Corpuscular Hemoglobin 30.1, Mean Corpuscular Hemoglobin Concent 32.8, Mean Platelet Volume 11.3, Neutrophils (%) (Auto) 80.3, Lymphocytes (%) (Auto) 11.3, Monocytes (%) (Auto) 6.6, Eosinophils (%) (Auto) 1.1, Basophils (%) (Auto) 0.4, Neutrophils # (Auto) 9.79, Lymphocytes # (Auto) 1.38, Monocytes # (Auto) 0.81, Eosinophils # (Auto) 0.13, Basophils # (Auto) 0.05 06/22/17 04:00 Test 06/22/17 03:35 06/22/17 04:00 06/22/17 08:18 06/22/17 11:36 White Blood Count 12.20 K/uL (4.8-10.8) Red Blood Count 5.34 M/uL (4.7-6.1) Hemoglobin 16.1 g/dL (14.0-18.0) Hematocrit 49.1 % (42-52) Mean Corpuscular Volume 91.9 fL (80-100) Mean Corpuscular Hemoglobin 30.1 pg (25-34) Mean Corpuscular Hemoglobin Concent 32.8 g/dl (32-36) Platelet Count 263 K/uL (130-400) Mean Platelet Volume 11.3 fL (7.4-10.4) Neutrophils (%) (Auto) 80.3 % Lymphocytes (%) (Auto) 11.3 % Monocytes (%) (Auto) 6.6 % Eosinophils (%) (Auto) 1.1 % Basophils (%) (Auto) 0.4 % Neutrophils # (Auto) 9.79 K/uL (1.4-6.5) Lymphocytes # (Auto) 1.38 K/uL (1.2-3.4) Monocytes # (Auto) 0.81 K/uL (0.11-0.59) Eosinophils # (Auto) 0.13 K/uL (0-0.5) Basophils # (Auto) 0.05 K/uL (0-0.2) RDW Standard Deviation 43.8 fL (36.4-46.3) RDW Coefficient of Variation 13.0 % (11.5-14.5) Immature Granulocyte % (Auto) 0.3 % Immature Granulocyte # (Auto) 0.04 K/uL (0.00-0.02) Prothrombin Time 10.4 SECONDS (9.0-12.0) Prothromb Time International Ratio 1.0 (0.9-1.1) Activated Partial Thromboplast Time 27.4 SECONDS (21.0-31.0) Partial Thromboplastin Ratio 1.1 Anion Gap 7.0 mmol/L (3-11) Est Creatinine Clear Calc Drug Dose 48.5 ml/min Estimated GFR () 46.3 Estimated GFR (Non- 40.0 BUN/Creatinine Ratio 14.7 (10-20) Calcium Level 8.2 mg/dl (8.5-10.1) Total Bilirubin 0.3 mg/dl (0.2-1) Aspartate Amino Transf (AST/SGOT) 30 U/L (15-37) Alanine Aminotransferase (ALT/SGPT) 50 U/L (12-78) Alkaline Phosphatase 91 U/L (45-117) Total Protein 6.4 gm/dl (6.4-8.2) Albumin 2.9 gm/dl (3.4-5.0) Globulin 3.5 gm/dl (2.5-4.0) Albumin/Globulin Ratio 0.8 (0.9-2) Thyroid Stimulating Hormone (TSH) 0.237 uIu/ml (0.300-4.500) Estimated Average Glucose 154 mg/dl Hemoglobin A1c 7.0 % (4.5-5.6) Triglycerides Level 110 mg/dl (0-150) Cholesterol Level 195 mg/dl (0-200) HDL Cholesterol 52 mg/dl LDL Cholesterol, Calculated 121 mg/dl VLDL Cholesterol, Calculated 22 mg/dl Cholesterol/HDL Ratio 3.8 Bedside Glucose 106 mg/dl (70-99) Test 06/22/17 15:55 Total Creatine Kinase 57 U/L (39-308) Creatine Kinase MB 2.2 ng/ml (0.5-3.6) Creatine Kinase MB Ratio 3.9 (0-3.0) Troponin I 0.561 ng/ml (0-0.045) Last 24 Hours Test 06/22/17 03:35 06/22/17 04:00 06/22/17 08:18 06/22/17 11:36 White Blood Count 12.20 K/uL Red Blood Count 5.34 M/uL Hemoglobin 16.1 g/dL Hematocrit 49.1 % Mean Corpuscular Volume 91.9 fL Mean Corpuscular Hemoglobin 30.1 pg Mean Corpuscular Hemoglobin Concent 32.8 g/dl Platelet Count 263 K/uL Mean Platelet Volume 11.3 fL Neutrophils (%) (Auto) 80.3 % Lymphocytes (%) (Auto) 11.3 % Monocytes (%) (Auto) 6.6 % Eosinophils (%) (Auto) 1.1 % Basophils (%) (Auto) 0.4 % Neutrophils # (Auto) 9.79 K/uL Lymphocytes # (Auto) 1.38 K/uL Monocytes # (Auto) 0.81 K/uL Eosinophils # (Auto) 0.13 K/uL Basophils # (Auto) 0.05 K/uL RDW Standard Deviation 43.8 fL RDW Coefficient of Variation 13.0 % Immature Granulocyte % (Auto) 0.3 % Immature Granulocyte # (Auto) 0.04 K/uL Prothrombin Time 10.4 SECONDS Prothromb Time International Ratio 1.0 Activated Partial Thromboplast Time 27.4 SECONDS Partial Thromboplastin Ratio 1.1 Sodium Level 141 mmol/L Potassium Level 4.4 mmol/L Chloride Level 109 mmol/L Carbon Dioxide Level 25 mmol/L Anion Gap 7.0 mmol/L Blood Urea Nitrogen 25 mg/dl Creatinine 1.70 mg/dl Est Creatinine Clear Calc Drug Dose 48.5 ml/min Estimated GFR () 46.3 Estimated GFR (Non- 40.0 BUN/Creatinine Ratio 14.7 Random Glucose 240 mg/dl Calcium Level 8.2 mg/dl Total Bilirubin 0.3 mg/dl Aspartate Amino Transf (AST/SGOT) 30 U/L Alanine Aminotransferase (ALT/SGPT) 50 U/L Alkaline Phosphatase 91 U/L Total Creatine Kinase 55 U/L 53 U/L Creatine Kinase MB 1.0 ng/ml 1.8 ng/ml Creatine Kinase MB Ratio 1.8 3.4 Troponin I 0.040 ng/ml 0.460 ng/ml Total Protein 6.4 gm/dl Albumin 2.9 gm/dl Globulin 3.5 gm/dl Albumin/Globulin Ratio 0.8 Thyroid Stimulating Hormone (TSH) 0.237 uIu/ml Estimated Average Glucose 154 mg/dl Hemoglobin A1c 7.0 % Triglycerides Level 110 mg/dl Cholesterol Level 195 mg/dl HDL Cholesterol 52 mg/dl LDL Cholesterol, Calculated 121 mg/dl VLDL Cholesterol, Calculated 22 mg/dl Cholesterol/HDL Ratio 3.8 Bedside Glucose 106 mg/dl Test 06/22/17 15:55 Total Creatine Kinase 57 U/L Creatine Kinase MB 2.2 ng/ml Creatine Kinase MB Ratio 3.9 Troponin I 0.561 ng/ml Assessment & Plan 71 yo M with no h/o CAD presents with chest pain, admitted for ACS rule out CHEST PAIN-serial cardiac enzymes have increased, so Cards to cath him in am when Elliquis wears off. Currently wearing nitro which is controlling his pain. Pt states he doesn't metabolize morphine well. TTE reveals no acute wall motion abnormality with normal EF. Cont ASA, pt states he has an intolerance to statins so this will not be considered unless needed. PAROXYSMAL ATRIAL FIB: in NSR, cont atenolol. Elliquis held in light of upcoming cath in am. HYPERTENSION: Controlled, Continue atenolol and amlodipine. PANHYPOPIT Hypopituitarism with adrenal insufficiency, hypothyroidism, DI. Continue prednisone, levothyroxine, DDAVP. Parenteral steroids PRN for hemodynamic instability or major procedures. DMII-A1C is 7. Pt not on antiglycemics as outpatient and this is a new diagnosis. Will speak with him and have diabetic nurse educator go by his room. Metformin is a first line consideration, however, not with his creatinine. May consider glyburide or glipizide, also. CHRONIC LYME DISEASE / EHRLICHIOSIS Continue usual regimen as recommended. On chronic amoxicillin BPH Continue lczkqxsreyk-fco-[id number] and pharmacy is working on getting this CKD-Stage III-creat at baseline. VTE PROPHYLAXIS-Elliquis which is currently on hold with upcoming heart cath in am. FULL CODE DISPOSITION-cont tele, heart cath in am. Natalie Vasquez DO [facility] Hospitalist . Consultants: Cardiology-Dr Bellamy Current Inpatient Medications: Current Inpatient Medications Medications (Trade) Dose Ordered Sig/Alexia Route Start Time Stop Time Status Last Admin Dose Admin Acetaminophen (Tylenol Tab) 650 mg Q4H PRN PO 06/22/17 06:00 07/22/17 05:59 Ondansetron HCl (Zofran Inj) 4 mg Q6H PRN IV 06/22/17 06:00 07/22/17 05:59 Nitroglycerin (Nitrostat Tab) 0.4 mg UD PRN SL 06/22/17 06:00 07/22/17 05:59 Nitroglycerin (Nitroglycerin 2% Oint) 1 inch Q6 EXT 06/22/17 07:30 07/22/17 07:29 06/22/17 12:33 1 INCH Morphine Sulfate (MoRPHine SULFATE INJ) 2 mg Q30M PRN IV 06/22/17 06:00 07/06/17 05:59 Aspirin (Ecotrin Tab) 81 mg QAM PO 06/23/17 09:00 07/23/17 08:59 Amlodipine Besylate (Norvasc Tab) 2.5 mg HS PO 06/22/17 21:00 07/22/17 20:59 Amoxicillin (Amoxil Cap) 250 mg DAILY PO 06/22/17 09:00 07/02/17 08:59 06/22/17 12:31 250 MG Atenolol (Tenormin Tab) 6.25 mg HS PO 06/22/17 21:00 07/22/17 20:59 Desmopressin Acetate (Desmopressin Acetate) 0.025 mg HS PO 06/22/17 21:00 07/22/17 20:59 Levothyroxine Sodium (Synthroid Tab) 75 mcg DAILYBB PO 06/23/17 06:00 07/23/17 05:59 Olanzapine (Zyprexa Tab) 0.625 mg HS PO 06/22/17 21:00 07/22/17 20:59 Prednisone (PredniSONE TAB) 5 mg DAILY PO 06/22/17 09:00 07/22/17 08:59 06/22/17 12:47 5 MG Miscellaneous Information (Order Awaiting Action) 1 ea QS N/A 06/22/17 16:00 07/22/17 15:59 Sodium Chloride 1,000 ml @ 49 mls/hr [id number] IV 06/23/17 00:00 06/23/17 20:24
[2017-06-22] MEDS: OLANZAPINE 2.5 MG TAB PO SCH (23:23)
[2017-06-22] MEDS: DESMOPRESSIN ACETATE 0.1 MG TAB PO SCH (23:24)
[2017-06-22 23:58] VITALS: BP 131/80; PULSE 57; TEMP 37; O2SAT 95
[2017-06-23] VITALS (8 sets, daily range): BP systolic 111–134; BP diastolic 65–75; PULSE 59–72; TEMP 36.5–37.1; O2SAT 94–96
[2017-06-23] MEDS: LEVOTHYROXINE 75 MCG TAB PO SCH (05:47)
[2017-06-23] MEDS: NITROGLYCERIN OINT 2% 1GM PACKET EXT SCH ×2 (05:47→12:32)
[2017-06-23] MEDS: AVODART~ORDER AWAITING ACTION SCH ×2 (07:29→12:34)
[2017-06-23] MEDS: ASPIRIN 81 MG ECTAB PO SCH (07:29)
[2017-06-23] MEDS ORDERED: FENTANYL CITRATE INJ 50 MCG/1 ML 2 ML VIAL ONE (07:59)
[2017-06-23] MEDS ORDERED: MIDAZOLAM HCL 1 MG/ML 2ML VIAL ONE (07:59)
[2017-06-23] MEDS ORDERED: HEPARIN SOD (PORCINE) 1000 UNIT/ML 10 ML VIAL ONE ×2 (07:59→09:38)
[2017-06-23] MEDS ORDERED: NITROGLYCERIN/D5W 100MCG/ML 20ML SYR ONE (08:00)
[2017-06-23] MEDS ORDERED: NiCARDipine HCL INJ 2.5 MG/ML 10 ML AMP ONE (08:00)
[2017-06-23 08:03] LABS: MEAN CELL VOLUME 92.5 fL (80-100); MEAN CORPUSCULAR HEMOGLOBIN 30.5 pg (25-34); MEAN PLATELET VOLUME 10.9 fL (7.4-10.4); PLATELET COUNT 218 K/uL (130-400); RED BLOOD COUNT 4.65 M/uL (4.7-6.1); WHITE BLOOD COUNT 8.89 K/uL (4.8-10.8)
--- NOTE | 2017-06-23 08:15 | Clinical Documentation Query ---
CLINICAL DOCUMENTATION QUERY Dr. LOPEZ, In your clinical opinion is this patient being managed for: ( x ) NSTEMI ( ) Other explanation of clinical findings ( ) Unable to determine (Please Define) ( ) Need to Discuss ( ) Not Agree The medical record reflects the following clinical findings, treatment, and risk factors. Clinical Indicators:71 yo male presenting with substernal chest pain. EMS EKG showed anterior ST elevation and inferior ST depression. Trops 0.040/0.460/0.561. Treatment: O2 support, ASA, NTG sl, NTP, tele, cardiology consult, pending cardiac catheterization Risk Factors:age, HTN, hx A fib, CKD Please clarify and document your clinical opinion in the progress notes and discharge summary. Terms such as "probable", "suspected", "likely", "questionable", "possible", or "still to be ruled out" are acceptable. IF IN AGREEMENT, YOU MUST DOCUMENT ABOVE DIAGNOSTIC STATEMENT IN DAILY PROGRESS NOTES AND DISCHARGE SUMMARY. This document is not part of the patient's record. Thank You, Noris Bentley, SON [phone]
[2017-06-23 08:39] LABS: BUN/CREATININE RATIO 12.5 (10-20); CALCIUM 8.6 mg/dl (8.5-10.1); CREATININE 1.5 mg/dl (0.60-1.40); MAGNESIUM 2.3 mg/dl (1.8-2.4)
--- NOTE | 2017-06-23 09:24 | Procedure Note ---
Pre-Mod Sedation Assessment General Date of Moderate Sedation: Jun 23, 2017. Vital Signs: Vital Signs Past 12 Hours Date Time Temp Pulse Resp B/P (MAP) Pulse Ox O2 Delivery O2 Flow Rate FiO2 06/23/17 07:36 36.5 61 20 122/73 (89) 96 Room Air 06/23/17 04:20 36.5 59 18 111/66 (81) 94 Room Air 06/23/17 04:09 Room Air 06/23/17 00:00 Room Air 06/22/17 23:58 37.0 57 18 131/80 (97) 95 Room Air Review Cardiovascular: regular rate, rhythm, no murmur Abdomen: normal bowel sounds Lungs: chest non-tender Airway Class: III Pre-Sedation Airway Assessment Oral Cavity: WNL Able to Visualize Vocal Cords: No Short Thick Neck: Yes Smoking Status: Never Smoker Mallampati Classification: Class III ASA Classification: Class III Procedure Planning Contraindications-for Mod Sed: None Yes Notes The planned sedation has been discussed with the patient and consent obtained. I have identified the patient, determined the appropriateness of sedation and have assessed the patient immediately prior to the procedure. All medicine(s) and interventions are by my order.
--- NOTE | 2017-06-23 09:40 | [facility] Post Operative Brief Note ---
Preliminary Procedure Note Procedure Date Jun 23, 2017. Pre-Procedure Diagnosis Non STEMI AUC Score 8 Post-Procedure Diagnosis Severe CAD Procedure(s) Performed Coronary Angiography Pressure Testing Technician Dr. Stephen Bellamy Student Truck Driver(s) Juany Alegria Estimated Blood Loss <15cc Medication(s) Heparin (5000u IV), Nicardipine (300mcg intraarterialafter sheath insertion), Lidocaine 1% (local infiltration) Preliminary Findings Right dominant coronary anatomy LM Large ostial caliber LAD Short Type II with large paralleling diagonal. Proximal LAD 75%, MId , after diagonal 90% CX Large with mild irregularities RCA large, dominant 50%, proximal, 30% mid Recommendations PCI without planned CABG Specimens None Fluids (cc crystalloids) 100 Anesthesia Versed 1mg, Fentanyl 12.5 mcg IV Procedural Complication(s) None
[2017-06-23] MEDS ORDERED: CLOPIDOGREL BISULFATE 300 MG TAB PO ONE ×2 (10:12)
--- NOTE | 2017-06-23 10:24 | Procedure Note ---
Post-Mod Sedation Assessment General Date of Moderate Sedation Jun 23, 2017. Vital Signs: Vital Signs Past 12 Hours Date Time Temp Pulse Resp B/P (MAP) Pulse Ox O2 Delivery O2 Flow Rate FiO2 06/23/17 10:10 58 18 124/76 (92) 98 Mask 3 06/23/17 08:00 Room Air 06/23/17 07:36 36.5 61 20 122/73 (89) 96 Room Air 06/23/17 04:20 36.5 59 18 111/66 (81) 94 Room Air 06/23/17 04:09 Room Air 06/23/17 00:00 Room Air 06/22/17 23:58 37.0 57 18 131/80 (97) 95 Room Air Review - Discharge Criteria Vital Signs Stable: Yes Alert/Oriented/Conversant: Yes Returned to Baseline Mental St: Yes Nausea Absent/Minimal: Yes Pain/Discomfort/Absent/Minimal: Yes Normal/Baseline Respirations: Yes Active Bleeding?: No Pt Received D/C Instructions: N/A Prescriptions Given: None Specific Proced. D/C Criteria Distal Pulses Present (Cardiac: Yes Groin site assessed-Card Cath: N/A Voided Prior To Discharge: N/A Discharged Patients Adult Escort/Transportation: Yes
[2017-06-23] MEDS ORDERED: ONDANSETRON INJ 2 MG/ML 2 ML VIAL IV PRN (10:30)
[2017-06-23] MEDS ORDERED: SODIUM CHLORIDE 0.9% 1000ML 1,000 ML IV SCH ×2 (10:30)
[2017-06-23] MEDS ORDERED: ACETAMINOPHEN 325 MG TAB PO PRN (10:30)
--- NOTE | 2017-06-23 10:35 | Cardiac Catheterization ---
Procedure Note Procedure Date Jun 23, 2017. Pre-Procedure Diagnosis Non STEMI AUC Score 8 Post-Procedure Diagnosis Severe CAD Procedure(s) Performed Drug Eluting Stent Program Support Clerk Mc Heel Boom Operator(s) Raji Estimated Blood Loss 20 Medication(s) Clopidogrel, Heparin, Nitroglycerin, Versed Summary of Findings Indication: NSTEMI Access: 6Fr Right Radial Artery Catheters: EBU 3.5 guide Findings: For full details of patients coronary angiography please see cath report dictated by Dr. Bellamy. Briefly found to have severe LAD lesions at the ostium and mid segment (likely culprit) just after take-off of 1st diagonal -- PCI -- Antithrombotic therapy: Heparin, Clopidogrel Procedure: LM cannulated with EBU 3.5 guide BMW wire placed into 1st diagonal Content Producer 50 wire passed across lesions into distal vesselL LAD lesions predilated with 2.5 compliant balloon Mid segment LAD lesion stented with 3.0 x 15 Xience HARLEY, post-dilated with stent balloon. Proximal LAD stented with 3.5 x 12 Xience HARLEY placed to ostium of LAD Stent post-dilated with 4.0 noncompliant balloon IC vasodilators administered for spasm Post procedure MAKAYLA 3 flow, stents well expanded with minimal residual stenosis and no apparent cardiac complications. Arterial Closure: TR Band Summary: 1. 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 Bellamy Consult cardiac Rehab Hemodynamics Rest Ao: 101/62/80 Final Ao: 113/67/87 LV: -- Recommendations PCI without planned CABG Specimens None Radiation Exposure (mGy) 5101 Contrast (mls) 218 Fluids (cc crystalloids) 180 Drains None Anesthesia Moderate Procedural Complication(s) None Disposition PCU ACC Data Cardiac Status Clinical evaluation leading to the procedure CAD Presntation: Non STEMI Anginal Classification: CCS IV Heart Failure: Yes, NYHA Class: CCS I Cardiogenic Shock w/in 24Hrs: No Cardiac Arrest w/in 24Hrs: No Imaging studies past 6 months: Yes Stress studies past 6 months: No Diagnostic Physician's Name: Stephen Bellamy M.D. Status: Elective Closure Device Percutaneous Entry Location: Radial Closure Device: Radial Band Recommendations: PCI without planned CABG PCI Indication: PCI for high risk Non-STEMI Lesion Segment Name: mid LAD Culprit Artery: Yes Stenosis Prior to Rx (%): 90 Chronic Total Occlusion: No IVUS: No FFR: No Pre-Procedure MAKAYLA Flow: 3 Previously Treated Lesion: No Lesion Complexity: Non-High/Non-C Lesion Length (mm): 12 Thrombus Present: No Bifurcation Lesion: No Guidewire Across Lesion: Yes Guidewire: Stenosis Post-Procedure (%): 0 Post-Procedure MAKAYLA Flow: 3 Device(s) Deployed: Yes Intraprocedure Events Significant Dissection: No Perforation: No
[2017-06-23] MEDS: AMOXICILLIN 250 MG CAP PO SCH (10:46)
--- NOTE | 2017-06-23 11:21 | CARDIAC CATH REPORT ---
PRIMARY CARE PHYSICIAN: Dr. Rosenbaum. PROCEDURE INDICATIONS: Non-ST segment elevation myocardial infarction, rest angina. PROCEDURE: Coronary angiography. BRIEF CARDIAC HISTORY: The patient is a 71-year-old male whose history is notable for past paroxysmal atrial fibrillation, controlled in sinus rhythm, panhypopituitarism, chronic stage III renal insufficiency, history of sleep apnea, hypertension who presented with rest symptoms of chest pain and discomfort awakening from sleep 8-10 over severity. There was dynamic ST segment changes during initial transport relieved by nitroglycerin. Subsequent cardiac enzymes since admission have demonstrated peak troponin of 0.56. He has had no further chest pains in the hospital until earlier this morning. He is referred now for diagnostic cardiac catheterization, anticipate presence of coronary artery disease. ACCESS: Right radial artery. CATHETERS: A 6-Japanese long glide sheath, 5-Japanese brachial 3.5, 5-Japanese JL 3.5, 5-Japanese straight pigtail. CONTRAST: Nonionic x84 mL of Visipaque. IV FLUIDS: 100 mL normal saline. SEDATION: Sedation start time was 0844, end time was 0910 with patient receiving 1 mg IV Versed and 12.5 mcg of fentanyl. Monitor person was Aydee Koroma. MEDICATIONS: After local infiltration of the access site was performed using 1% lidocaine after arterial sheath was inserted an intra-arterial injection of 300 mcg of nicardipine was given. After central access gained 5000 units IV heparin was given. RADIATION EXPOSURE: 4.1 minutes fluoroscopy, 1549 milligrays, DAP score of 9934. COMPLICATIONS: None. RESULTS: CORONARY ANGIOGRAPHY: The right coronary dominant anatomy is present. LEFT MAIN: Left main is short, but large in caliber and bifurcates to give rise to left anterior descending and left circumflex coronaries. There is minimal calcification. There is no obstruction. LEFT ANTERIOR DESCENDING: Left anterior descending is a short type 2 vessel which gives rise to a large paralleling diagonal at the end of its proximal third followed by a large septal branch. The left anterior descending ends just at the apex. Within the left anterior descending, there is a 70% narrowing at its very proximal portion with an additional discrete 90% stenosis after the origin of the large diagonal branch. The distal LAD has moderate irregularities of 30% or less. LEFT CIRCUMFLEX: Left circumflex is not large, but nondominant and gives rise to 2 small marginal branches, 2 large marginal branches and a large posterolateral branch with a large atrial branch. Within the left circumflex, there is mild irregularities and no obstructive disease. RIGHT CORONARY ARTERY: The right coronary is very large in caliber and long and dominant in distribution, gives rise to a sinoatrial branch shortly after its origin, a right ventricular branch in its mid portion at the AV groove a long posterior descending artery which reaches well around the apex and along the AV groove a large long terminal posterior ventricular branch. LV angiography not performed in anticipation of coronary intervention. Normal resting LV function on echocardiogram. HEMODYNAMICS: Initial aortic root pressure was 101/62 with a mean of 80, blood pressure at the completion of case was 109/65/83. FINAL IMPRESSIONS: Severe coronary artery disease with 75% narrowing of the proximal LAD and 90% narrowing of the mid left anterior descending as a culprit lesion reflecting essentially single vessel disease with moderate narrowings of 50% and 30% within a large dominant right coronary artery. RECOMMENDATIONS: The patient is referred for coronary intervention same setting left anterior descending for 2 vessel disease at worst and preserved LV systolic function.
[2017-06-23] MEDS ORDERED: NURSING VERBAL MED ORDER ONE (15:00)
--- NOTE | 2017-06-23 16:27 | PROGRESS NOTE ---
DATE: 06/23/2017 SUBJECTIVE: The patient seen and examined. Chart, medications, telemetry reviewed. Noted procedures performed this morning. The patient is seen post-cardiac catheterization and coronary intervention. The patient is currently pain free without complaint. Right radial access site is healing well. Notes no chest pain or chest discomfort. Notes no shortness of breath. OBJECTIVE: VITAL SIGNS: Reveal a heart rate of 65, blood pressure 134/75. NECK: Thick. There is no distinct jugular venous distention. LUNGS: Clear. CARDIOVASCULAR: Regular. There is no S3 gallop. ABDOMEN: Soft, nontender. EXTREMITIES: Without cyanosis or clubbing. There is no peripheral edema. Right radial puncture site as noted, healing well. DATA: Cardiac catheterization as described demonstrated essentially 2 vessel disease with moderate narrowing of the right coronary artery of 50% and high grade stenosis of the proximal and mid left anterior descending with 70%-75% narrowing of the ostium and 90% mid vessel stenosis after a large diagonal branch. The patient underwent successful coronary revascularization. RECOMMENDATIONS: I discussed findings in detail with the patient. He has undergone 2 stent implantations to the proximal mid left and descending with successful results. We will probably dual antiplatelet therapy optimally for 1 year's time uninterrupted. He is begun on aspirin and clopidogrel. His past medical history is notable for past episode of atrial fibrillation, single episode in March 2016. He has been chronically treated with Eliquis though at subtherapeutic dosing by patient Will discuss with the patient and primary mine deputy regarding ongoing usage, recommended therapeutic dosing of 5 mg twice per day versus discontinuing. All other medications will be continued as currently with notable changes, specifically atenolol will bechanged Toprol xl 12.5 mg p.m. and topical nitrates ordered on admission will be discontinued, likely addition of low dose LEAH inhibitor possibly on discharge. Statin ordered. MTDD
[2017-06-23] MEDS ORDERED: METOPROLOL SUCC 25MG EXT REL TAB PO SCH (21:00)
[2017-06-23] MEDS: DESMOPRESSIN ACETATE 0.1 MG TAB PO SCH (21:14)
[2017-06-23] MEDS: AMLODIPINE BESYLATE 5 MG TAB PO SCH (21:15)
[2017-06-23] MEDS: OLANZAPINE 2.5 MG TAB PO SCH (21:19)
--- NOTE | 2017-06-23 23:28 | Progress Note ---
Medicine Progress Note Date & Time of Visit: Jun 23, 2017 at 15:00. Subjective 71 yo M with no h/o CAD presents with chest pain, admitted for ACS rule out -denies pain -ambulatory -tolerating PO -doing well overall post-cath -2 stents to LAD Objective Last 8 Hrs Date Time Temp Pulse Resp B/P (MAP) Pulse Ox O2 Delivery O2 Flow Rate FiO2 06/23/17 20:00 Room Air 06/23/17 20:00 37.1 72 16 124/65 (84) 96 Room Air 06/23/17 16:00 Room Air Physical Exam: GEN: WNWD, in no acute distress, alert and appropriate, ambulatory HEENT: NC/AT, pupils are round, normal sclerae, MMM CARDIO: reg rate, S1/2 heard without m/g/r LUNGS: CTA bilaterally, no crackles, rales or wheezes, good diaphragmatic excursion ABD: soft, non-tender, non-distended, no rebound or guarding, +BS EXTREMITY: RP and DP palpable 2+ bilat, no LE swelling or edema, extremities are warm and well-perfused NEURO: CN 2-12 grossly intact, sensation intact throughout MUSC: 5/5 strength throughout, no gross focal deficits SKIN: warm and dry Laboratory Results: Last 24 Hours Test 06/23/17 07:08 06/23/17 09:09 06/23/17 09:32 06/23/17 10:07 White Blood Count 8.89 K/uL Red Blood Count 4.65 M/uL Hemoglobin 14.2 g/dL Hematocrit 43.0 % Mean Corpuscular Volume 92.5 fL Mean Corpuscular Hemoglobin 30.5 pg Mean Corpuscular Hemoglobin Concent 33.0 g/dl RDW Standard Deviation 44.6 fL RDW Coefficient of Variation 13.2 % Platelet Count 218 K/uL Mean Platelet Volume 10.9 fL Sodium Level 145 mmol/L Potassium Level 4.0 mmol/L Chloride Level 110 mmol/L Carbon Dioxide Level 30 mmol/L Anion Gap 5.0 mmol/L Blood Urea Nitrogen 19 mg/dl Creatinine 1.50 mg/dl Est Creatinine Clear Calc Drug Dose 53.6 ml/min Estimated GFR () 53.9 Estimated GFR (Non- 46.5 BUN/Creatinine Ratio 12.5 Random Glucose 98 mg/dl Calcium Level 8.6 mg/dl Magnesium Level 2.3 mg/dl Kaolin Activated Coagulation Time 197 SECONDS 224 SECONDS 257 SECONDS Assessment & Plan 71 yo M with no h/o CAD presents with chest pain, admitted for ACS rule out NSTEMI-heart cath this am with stents to LAD. On Plavix, ASA and Lipitor. Atenolol changed to Toprol XL. Recovered well from cath, tolerating PO and without pain at this time. Cont med management per Cards. PAROXYSMAL ATRIAL FIB: in NSR, cont atenolol. Elliquis stopped. HYPERTENSION: Controlled, Continue Toprol and amlodipine. PANHYPOPIT Hypopituitarism with adrenal insufficiency, hypothyroidism, DI. Continue prednisone, levothyroxine, DDAVP. Parenteral steroids PRN for hemodynamic instability or major procedures. DMII-A1C is 7. Pt not on antiglycemics as outpatient and this is a new diagnosis. Trend as outpatient reveals 6.4 (05/14) with a generally trend up. dough mixer helper to see him. On chronic prednisone, poss steroid-induced. Would consider diet control at this time and defer to PCP to start meds. Patient is very particular with new meds and effects of them. He has had investigations into his genetics to see how he handles different medications, and is particular about this. CHRONIC LYME DISEASE / EHRLICHIOSIS Continue usual regimen as recommended. On chronic amoxicillin BPH Continue totyijkiuwk-pxr-lpbyriata and pharmacy is working on getting this CKD-Stage III-creat at baseline. VTE PROPHYLAXIS-Elliquis which is currently on hold with upcoming heart cath in am. FULL CODE DISPOSITION-cont tele s/p cath. Likely to home in am. Natalie Vasquez DO [facility] Hospitalist . Consultants: Cardiology-Dr Bellamy Current Inpatient Medications: Current Inpatient Medications Medications (Trade) Dose Ordered Sig/Alexia Route Start Time Stop Time Status Last Admin Dose Admin Acetaminophen (Tylenol Tab) 650 mg Q4H PRN PO 06/22/17 06:00 07/22/17 05:59 Ondansetron HCl (Zofran Inj) 4 mg Q6H PRN IV 06/22/17 06:00 07/22/17 05:59 Nitroglycerin (Nitrostat Tab) 0.4 mg UD PRN SL 06/22/17 06:00 07/22/17 05:59 06/23/17 06:02 0.4 MG Morphine Sulfate (MoRPHine SULFATE INJ) 2 mg Q30M PRN IV 06/22/17 06:00 07/06/17 05:59 Aspirin (Ecotrin Tab) 81 mg QAM PO 06/23/17 09:00 07/23/17 08:59 06/23/17 07:29 81 MG Amlodipine Besylate (Norvasc Tab) 2.5 mg HS PO 06/22/17 21:00 07/22/17 20:59 06/23/17 21:15 2.5 MG Amoxicillin (Amoxil Cap) 250 mg DAILY PO 06/22/17 09:00 07/02/17 08:59 06/23/17 10:46 250 MG Desmopressin Acetate (Desmopressin Acetate) 0.025 mg HS PO 06/22/17 21:00 07/22/17 20:59 06/23/17 21:14 0.025 MG Levothyroxine Sodium (Synthroid Tab) 75 mcg DAILYBB PO 06/23/17 06:00 07/23/17 05:59 06/23/17 05:47 75 MCG Olanzapine (Zyprexa Tab) 0.625 mg HS PO 06/22/17 21:00 07/22/17 20:59 06/23/17 21:19 0.625 MG Prednisone (PredniSONE TAB) 5 mg DAILY PO 06/22/17 09:00 07/22/17 08:59 06/23/17 10:46 5 MG Miscellaneous Information (Order Awaiting Action) 1 ea QS N/A 06/22/17 16:00 07/22/17 15:59 Clopidogrel Bisulfate (plAVix TAB) 75 mg QAM PO 06/24/17 09:00 07/24/17 08:59 Metoprolol Succinate (Toprol Xl Tab) 12.5 mg QPM PO 06/23/17 21:00 07/23/17 20:59 06/23/17 21:19 12.5 MG Atorvastatin Calcium (Lipitor Tab) 40 mg QAM PO 06/24/17 09:00 07/24/17 08:59
[2017-06-24 00:20] VITALS: O2SAT 96
[2017-06-24 03:56] VITALS: BP 136/76; PULSE 65; TEMP 36.9; O2SAT 94
[2017-06-24] MEDS: LEVOTHYROXINE 75 MCG TAB PO SCH (06:06)
[2017-06-24 06:45] LABS: BASO % 0.3 %; BASO ABS # 0.03 K/uL (0-0.2); COMPLETE YES; EOS % 1.8 %; IG% 0.4 %; LYMPH % 15.5 %; LYMPH ABS # 1.41 K/uL (1.2-3.4); MEAN CELL VOLUME 91.5 fL (80-100); MEAN CORPUSCULAR HEMOGLOBIN 29.9 pg (25-34); MEAN CORPUSCULAR HGB CONC 32.7 g/dl (32-36); MEAN PLATELET VOLUME 10.9 fL (7.4-10.4); MONO % 9.5 %; NEUT % 72.5 %; PLATELET COUNT 210 K/uL (130-400); RED BLOOD COUNT 4.92 M/uL (4.7-6.1); WHITE BLOOD COUNT 9.11 K/uL (4.8-10.8)
[2017-06-24 07:18] LABS: CALCIUM 8.3 mg/dl (8.5-10.1); CREATININE 1.4 mg/dl (0.60-1.40); POTASSIUM 3.8 mmol/L (3.5-5.1)
[2017-06-24] MEDS: AVODART~ORDER AWAITING ACTION SCH ×2 (07:21)
[2017-06-24 08:11] VITALS: BP 123/75; PULSE 74; TEMP 36.9; O2SAT 93
[2017-06-24] MEDS ORDERED: CLOPIDOGREL BISULFATE 75 MG TAB PO SCH (09:00)
[2017-06-24] MEDS ORDERED: ATORVASTATIN 40 MG TAB PO SCH (09:00)
[2017-06-24] MEDS: AMOXICILLIN 250 MG CAP PO SCH (09:53)
[2017-06-24] MEDS: ASPIRIN 81 MG ECTAB PO SCH (09:53)
[2017-06-24] MEDS ORDERED: ASPEC81 PO (10:19)
[2017-06-24] MEDS ORDERED: PLV75 PO (10:19)
[2017-06-24] MEDS ORDERED: CRS10 PO (10:19)
[2017-06-24] MEDS ORDERED: TPRSR25 PO (10:19)
--- NOTE | 2017-06-24 10:26 | Discharge Instructions ---
Discharge Instructions Date of Service Jun 24, 2017. Admission Reason for Admission: Chest Pain Discharge Discharge Diagnosis / Problem: NSTEMI s/p stent to LAD Discharge Goals Goal(s): Prevent Disease Progression Activity Recommendations Activity Limitations: per Instructions/Follow-up section Per Cardiology post-catheterization instructions . Instructions / Follow-Up Instructions / Follow-Up Please take all medications as instructed below. You have new medications that were electronically sent to your pharmacy. You have a follow-up appointment with Dr. Rosenbaum scheduled for 06/28 @ 1:45pm. Please bring all discharge paperwork with you to this appointment. As discussed please touch base with Dr. Rosenbaum or your Dining Room Helper about the elevation in HbA1C (7.0) which now classifies you as a diabetic. For now continue good lifestyle practices such as exercise, and restriction of fatty or high sugar foods. Follow-up with [facility] Cardiology as instructed. You will be set up for outpatient cardiac rehabilitation through this office. Someone should be contacting you regarding this. It was a pleasure taking care of you! Call if you have any questions or problems. You can reach a [facility] hospitalist on duty at [facility] 24 hours a day by calling [phone]. Take care of yourself. Natalie Vasquez DO [facility] Hospitalist Current Hospital Diet Patient's current hospital diet: AHA Diet (Heart Healthy) Discharge Diet Recommended Diet: AHA Diet (Heart Healthy) Procedures Procedures Performed: Cardiac Catheterization with 2 HARLEY to LAD (06/23) Pending Studies Studies pending at discharge: no Laboratory Results Hemoglobin A1c Test 06/22/17 08:18 Range/Units Estimated Average Glucose 154 mg/dl Hemoglobin A1c 7.0 H 4.5-5.6 % Lipid Panel Test 06/22/17 08:18 Range/Units Triglycerides Level 110 0-150 mg/dl Cholesterol Level 195 0-200 mg/dl HDL Cholesterol 52 mg/dl Cholesterol/HDL Ratio 3.8 LDL Cholesterol, Calculated 121 mg/dl Medical Emergencies . Who to Call and When: Medical Emergencies: If at any time you feel your situation is an emergency, please call 911 immediately. . Non-Emergent Contact Non-Emergency issues call your: Primary Care Provider, Worm Packer . . "Provider Documentation" section prepared by Natalie Vasquez. . VTE Core Measure Inpt VTE Proph given/why not?: Other Anticoagulation (apixaban)
--- NOTE | 2017-06-24 10:30 | Discharge Summary ---
Discharge Summary Date of Service Jun 24, 2017. Discharge Summary Admission Date: Jun 22, 2017 at 05:54 Discharge Date: Jun 24, 2017 Discharge Disposition: Home Principal Diagnosis: NSTEMI s/p PCI with 2 HARLEY to LAD CAD Paroxysmal Atrial fibrillation HTN Panhypopituitarism-on chronic prednisone. DMII-new onset, poss steroid-induced Chronic Lyme/Erlichiosis-on chronic abx for this BPH CKD-Stage III Procedures: Left heart catheterization (06/23): 2 HARLEY to LAD TTE (06/23): * The left ventricle is normal in size. * There is borderline concentric left ventricular hypertrophy. * Left ventricular systolic function is normal. * The left ventricular wall motion is normal. * Ejection Fraction = 65-70%. * Trace aortic regurgitation. * There is trace mitral regurgitation. * There is trace tricuspid regurgitation. * Doppler findings do not suggest pulmonary hypertension. * There is no pericardial effusion. Vaccinations: None. Consultations: Cardiology-Dr Bellamy Pending Studies/Follow-Up: see instructions below Medication Reconciliation New Medications: Aspirin (Aspirin EC Low Dose) 81 Mg Ectab 81 MG PO QAM for 30 Days, #30 TAB 3 Refills Clopidogrel Bisulfate (Clopidogrel) 75 Mg Tab 75 MG PO QAM for 30 Days, #30 TAB 3 Refills Metoprolol Succinate (Metoprolol Succinate ER) 25 Mg Tabcr 12.5 MG PO QPM for 30 Days, #30 TAB 3 Refills Rosuvastatin Calcium (Crestor) 10 Mg Tab 10 MG PO QAM for 30 Days, #30 TAB 3 Refills Continued Medications: Amlodipine (Norvasc) 5 Mg Tab 2.5 MG PO HS, TAB 1/2 tablet twice a day. Amoxicillin (Amoxil) 250 Mg Cap 250 MG PO DAILY Calcitriol (Rocaltrol Cap) 0.25 Mcg Cap 0.25 MCG PO DAILY, CAP Calcium Carbonate-Vitamin D (Calcium + D3 600-200 mg-Unit) 1 Tab Tab 1 TAB PO DAILY Desmopressin Acetate (Desmopressin Acetate) 0.1 Mg Tab 0.25 TAB PO HS TAKE 1 TAB ONCE DAILY IF URINE OUTPUT IS MORE THAN 150ML/HR X 2 HRS. Dutasteride (Avodart) 0.5 Mg Cap 0.5 MG PO DAILY Levothyroxine Sodium (Levothyroxine Sodium) 75 Mcg Tab 75 MCG PO DAILY Olanzapine (Zyprexa) 2.5 Mg Tab 0.625 MG PO HS 1/4 TABLET DOSE Prednisone (Prednisone) 5 Mg Tab 5 MG PO DAILY, TAB Probiotic Product (Probiotic) 1 Cap Cap 1 CAP PO DAILY Discontinued Medications: Apixaban (Eliquis) 2.5 Mg Tab 1.25 MG PO BID, TAB Takes 1/2 tab twice a day. Atenolol (Tenormin) 25 Mg Tab 6.25 MG PO HS, TAB 1/4 TABLET DOSE DAILY Minocycline HCl (Minocycline HCl) 50 Mg Cap 50 MG PO HS Tetracycline (Sumycin) 250 Mg Cap 250 MG PO HS, CAP CHRONIC ABX Admission Information HPI (per Admitting provider): [address] by [address]. Rosenbaum for Family Medicine, Dr. Sneed for Cardiology, Dr. Leo for chronic Lyme disease. History of paroxysmal atrial fibrillation, hypertension, and other problems noted below. 2 nights prior to admission he developed chest pain after eating supper and lying down in supine position. Chest pain described as moderate substernal pressure that did not radiate. No associated palpitations, SOB, N, V, diaphoresis, etc. Pt felt that he was probably experiencing indigestion. He did not take any medications for the discomfort. Tonight around 0300 he experienced much more severe CP. CP described as substernal pressure radiating across his anterior chest, severity = 8/10. [place] nauseated. No palpitations, SOB, vomiting. [place] very weak. Called EMS. EKG by them showed anterior ST elevation and inferior ST depression. Received O2, ASA, NTG. Chest pain resolved. Repeat EKG after NTG showed resolution of ST changes. Patient brought to ED and remained pain-free after arrival. . Physical Exam (per Admitting): General Appearance: WD/WN, no apparent distress Head: normocephalic, atraumatic Eyes: normal inspection, PERRL, EOMI, sclerae normal ENT: normal ENT inspection, hearing grossly normal, pharynx normal Neck: supple, no adenopathy, thyroid normal, trachea midline Respiratory/Chest: lungs clear (to A&P), no respiratory distress, no accessory muscle use Cardiovascular: regular rate, rhythm, no edema, no gallop, no JVD, no murmur , normal peripheral pulses (radial and pedal pulses intact and symmetric), + pertinent finding (carotid pulses symmetric) Abdomen/GI: normal bowel sounds, non tender, soft, no organomegaly, no pulsatile mass Extremities/Musculoskelatal: normal inspection, no calf tenderness, no pedal edema Neurologic/Psych: ap operator II-XII nml as tested (PERRL, no dysarthria, no facial palsy), no motor/sensory deficits (motor upper and lower extr 5/5), alert, normal mood/affect, oriented x 3 Skin: normal color, warm/dry, no rash Lymphatic: no adenopathy (cervical) Hospital Course 71 yo M with no h/o CAD presents with chest pain, admitted for ACS rule out. Mild troponin elevation with serial cardiac enzymes; per Cardiology evaluation, stayed over fro cardiac catheterization the following day. This allowed time for Hugo to work out of his system prior to procedure. Cardiac catheterization revealed disease in LAD and he received two HARLEY to this area. He recovered well post-procedure with no further chest pain. He remained hemodynamically stable and afebrile and was discharged in stable condition with close PCP follow-up and placement into a cardiac rehab program. Total time spent on discharge = 60 minutes This includes examination of the patient, discharge planning, medication reconciliation, and communication with other providers. Discharge Instructions Discharge Instructions Date of Service Jun 24, 2017. Admission Reason for Admission: Chest Pain Discharge Discharge Diagnosis / Problem: NSTEMI s/p stent to LAD Discharge Goals Goal(s): Prevent Disease Progression Activity Recommendations Activity Limitations: per Instructions/Follow-up section Per Cardiology post-catheterization instructions . Instructions / Follow-Up Instructions / Follow-Up Please take all medications as instructed below. You have new medications that were electronically sent to your pharmacy. You have a follow-up appointment with Dr. Rosenbaum scheduled for 06/28 @ 1:45pm. Please bring all discharge paperwork with you to this appointment. As discussed please touch base with Dr. Rosenbaum or your Digester Cook about the elevation in HbA1C (7.0) which now classifies you as a diabetic. For now continue good lifestyle practices such as exercise, and restriction of fatty or high sugar foods. Follow-up with [facility] Cardiology as instructed. You will be set up for outpatient cardiac rehabilitation through this office. Someone should be contacting you regarding this. It was a pleasure taking care of you! Call if you have any questions or problems. You can reach a [facility] hospitalist on duty at [facility] 24 hours a day by calling [phone]. Take care of yourself. Natalie Vasquez DO [facility] Additional Copies To Bravo Rosenbaum III, M.D.
[2017-06-24 10:42] VITALS: BP 149/85; PULSE 73; TEMP 36.8; O2SAT 94
[2017-06-24 10:49] VITALS: BP 123/75; PULSE 74; TEMP 36.9; O2SAT 93
[2017-06-24 10:59] VITALS: Ht 177.8 cm; Wt 97.3 kg
--- NOTE | 2017-06-24 11:47 | CARDIOLOGY PROGRESS NOTE ---
DATE: 06/24/2017 DATE: 06/24/2017 The patient seen and examined. Chart, medications, telemetry reviewed. SUBJECTIVE: The patient feels well this morning. Notes no chest pain or discomfort. Notes no dizziness or lightheadedness. There have been no arrhythmias on telemetry. Notes no bleeding difficulties. Right radial puncture site is healing well. OBJECTIVE: VITAL SIGNS: Heart rate 74, blood pressure is 123/75. NECK: Thick. There is no jugular venous distention. No carotid bruits. LUNGS: Clear to auscultation. CARDIOVASCULAR EXAMINATION: Regular. There is no S3 gallop. ABDOMEN: Soft, nontender. EXTREMITIES: Without cyanosis or clubbing. There is no peripheral edema. LABORATORY DATA: White cell count 9.1, hemoglobin is 14.7. Sodium is 145, potassium is 3.8, chloride is 112, bicarbonate is 29, BUN is 18, creatinine is 1.4. IMPRESSION: A 71-year-old male with issues as follows: 1. Non-ST segment elevation myocardial infarction with single vessel significant disease, 2-vessel coronary atherosclerosis, now status post acute coronary intervention of a tandem lesion within the left anterior descending proximal and mid successful drug-eluting stents to both lesions. He had a residual 50% narrowing in the right coronary artery and a large caliber vessel. RECOMMENDATIONS: I discussed history of past paroxysmal atrial fibrillation in detail on subtherapeutic Eliquis. He has had no recurrence in a year. The patient wishes to minimize and simplify medical therapy. Will discontinue Eliquis, switch atenolol to start to Toprol-XL 12.5 mg per day. Continue aspirin and clopidogrel. Plan uninterrupted dual antiplatelet therapy for a year. Will initiate lipid lowering therapy with rosuvastatin at patient request at 10 mg per day. Cardiac rehab consultation will be placed. Followup to be arranged with cardiology in the next months' time.
[2017-06-25] MEDS ORDERED: ROSUVASTATIN CALCIUM 10 MG TAB PO SCH (09:00)
== END 2017-06-24 13:07 | disposition home or self-care (01) | DRG 247 ==
LOC: EDBD 03:43 → C.EDB 03:45 → C.2T 05:54 → ENRESERV 06:02
PROVIDERS: ADMIT Hospitalist; ATTEND Hospitalist
PROC: 027035Z Dilation of Coronary Artery, One Artery with Two Drug-eluting Intraluminal Devices, Percutaneous Approach (ICD-10-PCS; 2017-06-23)
PROC: B2111ZZ Fluoroscopy of Multiple Coronary Arteries using Low Osmolar Contrast (ICD-10-PCS; principal; 2017-06-23 08:00)
PROC: 4A023N7 Measurement of Cardiac Sampling and Pressure, Left Heart, Percutaneous Approach (ICD-10-PCS; principal; 2017-06-23 08:00)
DX: I21.4 Non-ST elevation (NSTEMI) myocardial infarction (principal); E23.0 Hypopituitarism; A69.20 Lyme disease, unspecified; A77.49 Other ehrlichiosis; I25.10 Atherosclerotic heart disease of native coronary artery without angina pectoris; I48.0 Paroxysmal atrial fibrillation; I12.9 Hypertensive chronic kidney disease with stage 1 through stage 4 chronic kidney disease, or unspecified chronic kidney disease; N18.3 Chronic kidney disease, stage 3 (moderate); E09.9 Drug or chemical induced diabetes mellitus without complications; T38.0X5A Adverse effect of glucocorticoids and synthetic analogues, initial encounter; N40.0 Benign prostatic hyperplasia without lower urinary tract symptoms; G47.30 Sleep apnea, unspecified; Z79.52 Long term (current) use of systemic steroids; Z79.2 Long term (current) use of antibiotics; Z79.01 Long term (current) use of anticoagulants; Z79.899 Other long term (current) drug therapy

== ENCOUNTER → 2017-06-25 | Outpatient (CLI) | payer BC ==
[~2017-06-25] MED LIST changes: +AMOX250C3 PO; -APIX1TAB PO; +ASPEC81 PO; +ASPI81TA28 PO; +CLOP1TAB15 PO; +CRS/10 PO; +CRS10 PO; +METO25TA3 PO; +MINO100C22 PO; +MINO50TA PO; -MNC50 PO; +OLME5TAB3 PO; -ONDA4TAB10 SL; +PLV75 PO; +ROSU5TAB PO; -TETR250C3 PO; +TPRSR25 PO
[2017-06-25 16:59] LABS: BLOOD UREA NITROGEN 17 mg/dl (7-18); BUN/CREATININE RATIO 12.2 (10-20); CALCIUM 9.4 mg/dl (8.5-10.1); CARBON DIOXIDE 30 mmol/L (21-32); CHLORIDE 115 mmol/L (98-107); GLUCOSE 115 mg/dl (70-99); POTASSIUM 4.1 mmol/L (3.5-5.1); SODIUM 147 mmol/L (136-145)
== END | disposition home or self-care (01) ==
LOC: C.LAB 16:24
PROVIDERS: ATTEND Internal Medicine Interventional Cardiology
DX: N28.9 Disorder of kidney and ureter, unspecified (principal)

== ENCOUNTER → 2017-07-29 | Outpatient (CLI) | payer BC ==
[2017-07-29 15:42] LABS: BASO % 0.3 %; BASO ABS # 0.03 K/uL (0-0.2); COMPLETE YES; EOS % 3.6 %; HEMATOCRIT 44.9 % (42-52); IG% 0.5 %; LYMPH % 12.2 %; LYMPH ABS # 1.05 K/uL (1.2-3.4); MEAN CELL VOLUME 91.6 fL (80-100); MEAN CORPUSCULAR HEMOGLOBIN 30.4 pg (25-34); MEAN CORPUSCULAR HGB CONC 33.2 g/dl (32-36); MONO % 9.2 %; NEUT % 74.2 %; PLATELET COUNT 210 K/uL (130-400); WHITE BLOOD COUNT 8.58 K/uL (4.8-10.8)
[2017-07-29 16:14] LABS: ALT/SGPT 45 U/L (12-78); BLOOD UREA NITROGEN 16 mg/dl (7-18); BUN/CREATININE RATIO 11.2 (10-20); CALCIUM 8.8 mg/dl (8.5-10.1); CARBON DIOXIDE 29 mmol/L (21-32); CHLORIDE 112 mmol/L (98-107); GLUCOSE 98 mg/dl (70-99); SODIUM 146 mmol/L (136-145); URIC ACID 6.6 mg/dl (2.6-7.2)
[2017-07-29 16:16] LABS: ALB/GLOB RATIO 0.8 (0.9-2); ALKALINE PHOSPHATASE 99 U/L (45-117); AST/SGOT 27 U/L (15-37)
== END | disposition home or self-care (01) ==
LOC: C.LAB 14:33
PROVIDERS: ATTEND Internal Medicine
DX: A69.20 Lyme disease, unspecified (principal); Z79.2 Long term (current) use of antibiotics; R53.83 Other fatigue

== ENCOUNTER 2017-08-12 23:39 | Emergency (ER) | payer BC ==
[~2017-08-12] VITALS: Ht 177.8 cm; Wt 100.3 kg
[~2017-08-12 23:39] MED LIST changes: -ASPI81TA28 PO; -ATEN-173 PO; -CLOP1TAB15 PO; -CRS/10 PO; -METO25TA3 PO; -MINO100C22 PO; -MINO50TA PO; -OLME5TAB3 PO; -ROSU5TAB PO
[2017-08-12 23:40] VITALS: TEMP 36.8; Ht 177.8 cm; Wt 100.3 kg
[2017-08-12 23:53] VITALS: O2SAT 96
--- NOTE | 2017-08-12 23:55 | EMERGENCY ROOM VISIT NOTE ---
History Report prepared by Stanley: Dell Ferrell Under the Supervision of: Dr. Yogi Workman M.D. First contact with patient: 23:43 Chief Complaint: CHEST PAIN Stated Complaint: CHEST PAIN - MUSCLE History of Present Illness The patient is a 71 year old male who presents to the Emergency Room with complaints of worsening left-sided chest pain that started a few weeks ago. He says that the pain had been intermittent and mild, but worsened a lot today. He states that he has a bruise on his chest from poking where the pain is. The patient notes that he saw Dr. Rosenbaum and Dr. Sneed for the pain a week ago, but the pain was just intermittent and mild, and was thought to perhaps be angina. He says that breathing and sitting up worsens the pain, but exertion does not worsen the pain. The patient states that he takes Aspirin daily, but no Coumadin or Xarelto. He notes no history of blood clots. The patient says that he has not taken any Nitro or Tylenol. He notes that he had a heart attack 2 months ago and had 2 stents placed. He denies any loss of consciousness. He says that he has a family history of a stroke. Source of History: patient Onset: A few weeks ago Position: chest (left) Timing: worsening Modifying Factors (Worsening): breathing, other (sitting up) Associated Symptoms: No LOC Note: Associated symptoms: Bruise on chest where pain is. Review of Systems See HPI for pertinent positives & negatives. A total of 10 systems reviewed and were otherwise negative. 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5 MG PO DAILY Levothyroxine Sodium (Levothyroxine Sodium), 75 MCG PO DAILY Metoprolol Succ (Toprol Xl) (Toprol-Xl), 12.5 MG PO DAILY Metoprolol Succinate (Metoprolol Succinate ER), 12.5 MG PO DAILY Minocycline Hcl (Minocycline Hcl), 50 MG PO DAILY Olanzapine (Zyprexa), 1.25 MG PO HS Prednisone (Prednisone), 5 MG PO DAILY Probiotic Product (Probiotic), 1 CAP PO DAILY Rosuvastatin Calcium (Crestor), 10 MG PO Q2D Rosuvastatin Calcium (Crestor), 5 MG PO Q2D Allergies Coded Allergies: Ibuprofen (Verified Allergy, Mild, flushed, itchy, 06/22/17) Physical Exam Vital Signs Date Time Temp Pulse Resp B/P (MAP) Pulse Ox O2 Delivery O2 Flow Rate FiO2 08/13/17 01:12 60 18 138/79 96 08/13/17 00:18 67 18 136/83 95 Room Air 08/12/17 23:53 96 Room Air 08/12/17 23:40 36.8 73 18 150/80 97 Room Air Physical Exam GENERAL: Patient is well appearing and in minimal distress. HEENT: No acute trauma, normocephalic atraumatic, mucous membranes moist, no nasal congestion, no scleral icterus. NECK: No stridor, no adenopathy, no meningismus, trachea is midline. LUNGS: No dyspnea. Clear to auscultation and equal bilaterally. No wheeze, no rhonchi. CHEST: Bruise on left anterior chest at location of pain. Tender to palpation. HEART: Regular rate and rhythm. No murmurs, rubs, gallops appreciated. ABDOMEN: Soft, nontender, bowel sounds positive, no masses appreciated, no peritonitis. BACK: No midline tenderness, no CVA tenderness EXTREMITIES: Normal motion all extremities, no cyanosis, no edema. NEUROLOGIC: Alert and oriented, no acute motor or sensory deficits, no focal weakness, cranial nerves grossly intact. SKIN: No rash, no jaundice, no diaphoresis. Medical Decision & Procedures ER Provider Diagnostic Interpretation: X ray results are stated below per my interpretation: Chest: 1 view: No infiltrate, no effusion, normal cardiac border. Laboratory Results 08/12/17 23:50 Red Blood Count 4.77, Mean Corpuscular Volume 92.0, Mean Corpuscular Hemoglobin 30.0, Mean Corpuscular Hemoglobin Concent 32.6, Mean Platelet Volume 10.8, Neutrophils (%) (Auto) 73.2, Lymphocytes (%) (Auto) 13.4, Monocytes (%) (Auto) 8.7, Eosinophils (%) (Auto) 4.1, Basophils (%) (Auto) 0.3, Neutrophils # (Auto) 6.40, Lymphocytes # (Auto) 1.17, Monocytes # (Auto) 0.76, Eosinophils # (Auto) 0.36, Basophils # (Auto) 0.03 08/12/17 23:50 Test 08/12/17 23:50 White Blood Count 8.75 K/uL (4.8-10.8) Red Blood Count 4.77 M/uL (4.7-6.1) Hemoglobin 14.3 g/dL (14.0-18.0) Hematocrit 43.9 % (42-52) Mean Corpuscular Volume 92.0 fL (80-100) Mean Corpuscular Hemoglobin 30.0 pg (25-34) Mean Corpuscular Hemoglobin Concent 32.6 g/dl (32-36) Platelet Count 214 K/uL (130-400) Mean Platelet Volume 10.8 fL (7.4-10.4) Neutrophils (%) (Auto) 73.2 % Lymphocytes (%) (Auto) 13.4 % Monocytes (%) (Auto) 8.7 % Eosinophils (%) (Auto) 4.1 % Basophils (%) (Auto) 0.3 % Neutrophils # (Auto) 6.40 K/uL (1.4-6.5) Lymphocytes # (Auto) 1.17 K/uL (1.2-3.4) Monocytes # (Auto) 0.76 K/uL (0.11-0.59) Eosinophils # (Auto) 0.36 K/uL (0-0.5) Basophils # (Auto) 0.03 K/uL (0-0.2) RDW Standard Deviation 42.9 fL (36.4-46.3) RDW Coefficient of Variation 12.7 % (11.5-14.5) Immature Granulocyte % (Auto) 0.3 % Immature Granulocyte # (Auto) 0.03 K/uL (0.00-0.02) D-Dimer 310 ug/L FEU (0-500) Anion Gap 8.0 mmol/L (3-11) Est Creatinine Clear Calc Drug Dose 54.4 ml/min Estimated GFR () 53.9 Estimated GFR (Non- 46.5 BUN/Creatinine Ratio 12.9 (10-20) Calcium Level 8.6 mg/dl (8.5-10.1) Total Creatine Kinase 87 U/L (39-308) Creatine Kinase MB 1.2 ng/ml (0.5-3.6) Creatine Kinase MB Ratio 1.4 (0-3.0) Troponin I < 0.015 ng/ml (0-0.045) Acetaminophen Level < 2 ug/ml (10-30) Laboratory results as reviewed by me. Medications Administered Medications (Trade) Dose Ordered Sig/Alexia Route Start Time Stop Time Status Last Admin Dose Admin Acetaminophen (Tylenol Tab) 1,000 mg NOW STAT PO 08/13/17 00:03 08/13/17 00:04 DC 08/13/17 00:17 1,000 MG Lidocaine (Lidoderm Patch 5%) 1 patch NOW STAT TD 08/13/17 00:48 08/13/17 00:50 DC 08/13/17 00:59 1 PATCH ECG Indication: chest pain Rate (beats per minute): 67 Rhythm: normal sinus Findings: no acute ischemic change, no ectopy ED Course 2344: The patient was evaluated in room A4B. A complete history and physical exam was performed. 0003: Ordered Tylenol Tab 1000 mg PO. 0047: I reevaluated the patient and he is feeling well. He agrees with outpatient follow-up with his primary care physician. The patient verbally expressed understanding and agreement of the treatment plan. The patient will be discharged. 0048: Ordered Lidoderm Patch 5% 1 patch TD. Medical Decision Differential: Cardiac Ischemia (STEMI, NSTEMI, Unstable Angina, etc), Aortic Dissection, Arrhythmia, Pulmonary Embolism, Pneumonia, Pneumothorax, MSK, Infectious, Pericarditis/Myocarditis, Esophageal Rupture, Gastrointestinal, amongst other pathologies entertained. 71 yr old male arrives with left chest pain persistent over the last week. Seems very clearly MSK as worse with movement/raiding arm, palpation, and there is a bruise. Suspect strain that had some bleeding as he is on Plavix/asa. Did have DC a few months ago with stenting thus for safety went ahead with EKG which was unchanged and Trop which is negative. Labs otherwise look good. Will try lidocaine patch and advised Tylenol use. Already following with PCP/ Cards for this same discomfort. Medication Reconcilliation Current Medication List: was personally reviewed by me Blood Pressure Screening Patient's blood pressure: Normal blood pressure Impression Primary Impression: Left sided chest pain Additional Impression: Superficial bruising of chest wall Scribe Attestation The scribe's documentation has been prepared under my direction and personally reviewed by me in its entirety. I confirm that the note above accurately reflects all work, treatment, procedures, and medical decision making performed by me. Departure Information Dispostion Home / Self-Care Referrals Bravo Rosenbaum III, M.D. (PCP) Patient Instructions ED Chest Pain Atypical Unkn Cause, My [facility] Health Problem Qualifiers
[2017-08-13 00:03] LABS: BASO % 0.3 %; BASO ABS # 0.03 K/uL (0-0.2); COMPLETE YES; EOS % 4.1 %; HEMATOCRIT 43.9 % (42-52); IG% 0.3 %; LYMPH % 13.4 %; LYMPH ABS # 1.17 K/uL (1.2-3.4); MEAN CORPUSCULAR HGB CONC 32.6 g/dl (32-36); MEAN PLATELET VOLUME 10.8 fL (7.4-10.4); MONO % 8.7 %; NEUT % 73.2 %; PLATELET COUNT 214 K/uL (130-400); RED BLOOD COUNT 4.77 M/uL (4.7-6.1); WHITE BLOOD COUNT 8.75 K/uL (4.8-10.8)
[2017-08-13] MEDS ORDERED: ACETAMINOPHEN 500 MG TAB PO STA (00:03)
[2017-08-13 00:27] LABS: BLOOD UREA NITROGEN 19 mg/dl (7-18); GLUCOSE 177 mg/dl (70-99)
[2017-08-13 00:28] LABS: BUN/CREATININE RATIO 12.9 (10-20); CALCIUM 8.6 mg/dl (8.5-10.1); CARBON DIOXIDE 27 mmol/L (21-32); CHLORIDE 110 mmol/L (98-107); POTASSIUM 3.8 mmol/L (3.5-5.1); SODIUM 145 mmol/L (136-145)
[2017-08-13 00:32] LABS: CKMB/CK RATIO 1.4 (0-3.0)
[2017-08-13] MEDS ORDERED: LIDODERM (LIDOCAINE) PATCH 5% TD STA (00:48)
[2017-08-13] MEDS ORDERED: OLME5TAB3 PO (01:00)
[2017-08-13] MEDS ORDERED: MINO100C22 PO (01:02)
[2017-08-13] MEDS ORDERED: MINO50TA PO (01:03)
[2017-08-13] MEDS ORDERED: ASPI81TA28 PO (01:04)
[2017-08-13] MEDS ORDERED: CLOP1TAB15 PO (01:05)
[2017-08-13] MEDS ORDERED: TPRSR25 PO (01:07)
[2017-08-13] MEDS ORDERED: METO25TA3 PO (01:07)
[2017-08-13 01:12] VITALS: BP 138/79; PULSE 60; O2SAT 96
[2017-08-13] MEDS ORDERED: ATEN-173 PO (01:15)
[2017-08-13] MEDS ORDERED: CRS/10 PO (01:17)
[2017-08-13] MEDS ORDERED: ROSU5TAB PO (01:18)
--- NOTE | 2017-08-13 06:41 | DIAGNOSTIC IMAGING REPORT ---
CHEST ONE VIEW PORTABLE CLINICAL HISTORY: Atypical chest pain COMPARISON STUDY: 06/22/2017 FINDINGS: The cardiac and mediastinal contours remain stable. There is no failure. There is no focal pulmonary consolidation. There are no pleural effusions. There is a stable right midlung zone area of atelectasis/scarring.[ IMPRESSION: AP portable study. No acute findings. Electronically signed by: Aryan Soriano M.D. 08/13/2017 6:40 AM Dictated Date/Time: 08/13/2017 6:40 AM
== END 2017-08-13 01:13 | disposition home or self-care (01) ==
LOC: C.EDB 23:40 → C.EDA 08-13 01:13
DX: R07.9 Chest pain, unspecified (principal); J45.909 Unspecified asthma, uncomplicated; N18.3 Chronic kidney disease, stage 3 (moderate); E23.2 Diabetes insipidus; F34.1 Dysthymic disorder; I10 Essential (primary) hypertension; I48.91 Unspecified atrial fibrillation; E23.3 Hypothalamic dysfunction, not elsewhere classified; Z83.3 Family history of diabetes mellitus; Z82.3 Family history of stroke; Z82.49 Family history of ischemic heart disease and other diseases of the circulatory system; Z79.82 Long term (current) use of aspirin

== ENCOUNTER → 2017-08-25 | Outpatient (CLI) | payer BC ==
[~2017-08-25] MED LIST changes: -AMLO-110 PO; -AMOX250C3 PO; -ASPEC81 PO; +ASPI81TA28 PO; +ATEN-173 PO; -CALC-388 PO; +CLOP1TAB15 PO; +CRS/10 PO; -CRS10 PO; +METO25TA3 PO; +MINO50TA PO; -PLV75 PO; +ROSU5TAB PO
== END | disposition home or self-care (01) ==
LOC: C.LAB 10:46
PROVIDERS: ATTEND Urology
DX: N41.1 Chronic prostatitis (principal); N28.1 Cyst of kidney, acquired; R97.20 Elevated prostate specific antigen [PSA]; N40.0 Benign prostatic hyperplasia without lower urinary tract symptoms

== ENCOUNTER 2017-11-15 11:30 | Emergency (ER) | payer BC ==
[~2017-11-15] VITALS: Ht 177.8 cm; Wt 97.7 kg
[2017-11-15 11:19] VITALS: TEMP 36.9; Ht 177.8 cm; Wt 97.7 kg
[2017-11-15 11:22] VITALS: O2SAT 95
[2017-11-15] MEDS ORDERED: SODIUM CHLORIDE 0.9% 1000ML 1,000 ML IV STA (11:43)
--- NOTE | 2017-11-15 12:15 | DIAGNOSTIC IMAGING REPORT ---
CHEST ONE VIEW PORTABLE HISTORY: EVALUATE ALTERED MENTAL STATUS/WEAKNESS COMPARISON: Chest 08/13/2017. FINDINGS: No pneumothorax. No pleural effusions. The heart is normal in size. Mild interstitial thickening at the lung bases. This is likely chronic. The upper lung zones are clear. Stable linear scarlike density within the right lung base. IMPRESSION: Mild bibasilar interstitial thickening is likely chronic. No new focal lung consolidations to suggest pneumonia. Electronically signed by: Yves Payne M.D. 11/15/2017 12:14 PM Dictated Date/Time: 11/15/2017 12:12 PM
[2017-11-15 12:18] LABS: BASO % 0.4 %; BASO ABS # 0.03 K/uL (0-0.2); COMPLETE YES; EOS % 3.4 %; HEMATOCRIT 43.1 % (42-52); IG% 0.2 %; LYMPH % 10.4 %; LYMPH ABS # 0.89 K/uL (1.2-3.4); MEAN CELL VOLUME 90.9 fL (80-100); MEAN CORPUSCULAR HGB CONC 32.9 g/dl (32-36); MEAN PLATELET VOLUME 10.7 fL (7.4-10.4); MONO % 11.1 %; NEUT % 74.5 %; PLATELET COUNT 180 K/uL (130-400); RED BLOOD COUNT 4.74 M/uL (4.7-6.1); WHITE BLOOD COUNT 8.57 K/uL (4.8-10.8)
[2017-11-15 12:31] LABS: PROTHROMBIN TIME (PATIENT) 10.7 SECONDS (9.0-12.0)
--- NOTE | 2017-11-15 12:31 | EMERGENCY ROOM VISIT NOTE ---
History Report prepared by Stanley: Enoch Bee Under the Supervision of: Dr. Saurabh Vitale D.O. First contact with patient: 11:34 Chief Complaint: HYPOTENSION Stated Complaint: U History of Present Illness The patient is a 72 year old male who presents to the Emergency Room with complaints of intermittent low blood pressure since this morning [employer]. He notes that he was not feeling normal this morning [employer], though he was fine last night. He denies any headaches, nausea, vomiting, chest pain, shortness of breath, abdominal pain, back pain, loss of appetite, or urinary symptoms. He has been going to cardiac rehabilitation. He recently had an LA in May 2017 and had two stents in place. He has a history of coronary artery disease. He has a history of diabetes insipidus. He states that he missed a dose of prednisone yesterday. He denies any new medications over the course of the last month. Source of History: patient Onset: this morning [employer] Position: other (global ) Quality: other (low blood pressure) Timing: intermittent Associated Symptoms: No headache, No chest pain, No SOB, No nausea, No vomiting, No abdominal pain, No back pain, No urinary symptoms Note: He denies any loss of appetite. Review of Systems See HPI for pertinent positives & negatives. A total of 10 systems reviewed and were otherwise negative. 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 Surgical Problems: (1) History of nasal surgery (2) Status post stereotactic radiosurgery Family History Cancer Diabetes mellitus GRANDMOTHER Hypertension Lung disease Stroke Social History Smoking Status: Never Smoker Alcohol Use: none Marital Status: Housing Status: lives with family Occupation Status: retired Current/Historical Medications Scheduled Aspirin (Aspirin Ec), 81 MG PO DAILY Atenolol (Tenormin), 6.25 MG PO BID Calcitriol (Rocaltrol Cap), 0.25 MCG PO DAILY Clopidogrel (Plavix), 75 MG PO DAILY Desmopressin Acetate (Desmopressin Acetate), 0.25 TAB PO HS Dutasteride (Avodart), 0.5 MG PO DAILY Levothyroxine Sodium (Levothyroxine Sodium), 75 MCG PO DAILY Minocycline Hcl (Minocycline Hcl), 50 MG PO DAILY Olanzapine (Zyprexa), 1.25 MG PO HS Prednisone (Prednisone), 5 MG PO DAILY Probiotic Product (Probiotic), 1 CAP PO DAILY Rosuvastatin Calcium (Crestor), 10 MG PO DAILY Tetracycline HCl (Tetracycline HCl), 250 MG PO DAILY Allergies Coded Allergies: Ibuprofen (Verified Allergy, Mild, flushed, itchy, 11/15/17) Physical Exam Vital Signs Date Time Temp Pulse Resp B/P (MAP) Pulse Ox O2 Delivery O2 Flow Rate FiO2 11/15/17 13:42 60 18 124/70 98 11/15/17 13:00 60 19 98 11/15/17 12:31 113/71 11/15/17 12:25 123/71 11/15/17 12:00 71 14 100 11/15/17 11:52 102/55 96/57 86/56 11/15/17 11:37 71 18 107/60 97 Room Air 11/15/17 11:37 107/60 11/15/17 11:35 86/56 11/15/17 11:34 86/56 11/15/17 11:33 96/57 11/15/17 11:31 96/57 11/15/17 11:31 77 18 102/55 95 Room Air 11/15/17 11:22 95 Room Air 11/15/17 11:19 36.9 73 18 103/57 96 Room Air 11/15/17 11:14 73 Physical Exam GENERAL: Patient is awake, alert, and in no acute distress. Patient is resting comfortably and showing no signs of anxiety EYES: The conjunctivae are clear. The pupils are round and reactive. EARS, NOSE, MOUTH AND THROAT: The nose is without any evidence of any deformity. Mucous membranes are dry tongue is midline NECK: The neck is nontender and supple. RESPIRATORY: Normal respiratory effort is noted there is no evidence of wheezing rhonchi or rales CARDIOVASCULAR: Regular rate and rhythm noted there no murmurs rubs or gallops normal S1 normal S2 GASTROINTESTINAL: The abdomen is soft. Bowel sounds are present in all quadrants. Abdomen is nontender MUSCULOSKELETAL/EXTREMITIES: There is no evidence of gross deformity full range of motion is noted in the hips and shoulders SKIN: There is no obvious evidence of any rash. There are no petechiae, pallor or cyanosis noted. NEUROLOGIC: Patient is awake alert and oriented x3 strength is symmetric patellar reflexes are 2+ bilaterally Medical Decision & Procedures ER Provider Diagnostic Interpretation: Radiology results as stated below per my review and radiologist interpretation: CHEST ONE VIEW PORTABLE HISTORY: EVALUATE ALTERED MENTAL STATUS/WEAKNESS COMPARISON: Chest 08/13/2017. FINDINGS: No pneumothorax. No pleural effusions. The heart is normal in size. Mild interstitial thickening at the lung bases. This is likely chronic. The upper lung zones are clear. Stable linear scarlike density within the right lung base. IMPRESSION: Mild bibasilar interstitial thickening is likely chronic. No new focal lung consolidations to suggest pneumonia. Electronically signed by: Yves Payne M.D. 11/15/2017 12:14 PM Dictated Date/Time: 11/15/2017 12:12 PM Laboratory Results 11/15/17 12:00 Red Blood Count 4.74, Mean Corpuscular Volume 90.9, Mean Corpuscular Hemoglobin 30.0, Mean Corpuscular Hemoglobin Concent 32.9, Mean Platelet Volume 10.7, Neutrophils (%) (Auto) 74.5, Lymphocytes (%) (Auto) 10.4, Monocytes (%) (Auto) 11.1, Eosinophils (%) (Auto) 3.4, Basophils (%) (Auto) 0.4, Neutrophils # (Auto ) 6.39, Lymphocytes # (Auto) 0.89, Monocytes # (Auto) 0.95, Eosinophils # (Auto ) 0.29, Basophils # (Auto) 0.03 11/15/17 12:00 Test 11/15/17 12:00 11/15/17 12:15 White Blood Count 8.57 K/uL (4.8-10.8) Red Blood Count 4.74 M/uL (4.7-6.1) Hemoglobin 14.2 g/dL (14.0-18.0) Hematocrit 43.1 % (42-52) Mean Corpuscular Volume 90.9 fL (80-100) Mean Corpuscular Hemoglobin 30.0 pg (25-34) Mean Corpuscular Hemoglobin Concent 32.9 g/dl (32-36) Platelet Count 180 K/uL (130-400) Mean Platelet Volume 10.7 fL (7.4-10.4) Neutrophils (%) (Auto) 74.5 % Lymphocytes (%) (Auto) 10.4 % Monocytes (%) (Auto) 11.1 % Eosinophils (%) (Auto) 3.4 % Basophils (%) (Auto) 0.4 % Neutrophils # (Auto) 6.39 K/uL (1.4-6.5) Lymphocytes # (Auto) 0.89 K/uL (1.2-3.4) Monocytes # (Auto) 0.95 K/uL (0.11-0.59) Eosinophils # (Auto) 0.29 K/uL (0-0.5) Basophils # (Auto) 0.03 K/uL (0-0.2) RDW Standard Deviation 42.7 fL (36.4-46.3) RDW Coefficient of Variation 12.8 % (11.5-14.5) Immature Granulocyte % (Auto) 0.2 % Immature Granulocyte # (Auto) 0.02 K/uL (0.00-0.02) Prothrombin Time 10.7 SECONDS (9.0-12.0) Prothromb Time International Ratio 1.0 (0.9-1.1) Activated Partial Thromboplast Time 25.3 SECONDS (21.0-31.0) Partial Thromboplastin Ratio 1.0 Anion Gap 6.0 mmol/L (3-11) Est Creatinine Clear Calc Drug Dose 51.2 ml/min Estimated GFR () 51.4 Estimated GFR (Non- 44.4 BUN/Creatinine Ratio 11.6 (10-20) Calcium Level 8.5 mg/dl (8.5-10.1) Magnesium Level 2.1 mg/dl (1.8-2.4) Total Bilirubin 0.6 mg/dl (0.2-1) Direct Bilirubin < 0.1 mg/dl (0-0.2) Aspartate Amino Transf (AST/SGOT) 35 U/L (15-37) Alanine Aminotransferase (ALT/SGPT) 47 U/L (12-78) Alkaline Phosphatase 105 U/L (45-117) Total Creatine Kinase 77 U/L (39-308) Creatine Kinase MB 1.1 ng/ml (0.5-3.6) Creatine Kinase MB Ratio 1.4 (0-3.0) Troponin I < 0.015 ng/ml (0-0.045) Total Protein 6.6 gm/dl (6.4-8.2) Albumin 3.0 gm/dl (3.4-5.0) Thyroid Stimulating Hormone (TSH) 0.205 uIu/ml (0.300-4.500) Free Thyroxine 0.89 ng/dl (0.80-1.60) Random Cortisol 12.31 mcg/dl Urine Color YELLOW Urine Appearance CLEAR (CLEAR) Urine pH 5.5 (4.5-7.5) Urine Specific [place] 1.011 (1.000-1.030) Urine Protein NEG (NEG) Urine Glucose (UA) NEG (NEG) Urine Ketones NEG (NEG) Urine Occult Blood NEG (NEG) Urine Nitrite NEG (NEG) Urine Bilirubin NEG (NEG) Urine Urobilinogen NEG (NEG) Urine Leukocyte Esterase NEG (NEG) Laboratory results per my review. Medications Administered Medications (Trade) Dose Ordered Sig/Alexia Route Start Time Stop Time Status Last Admin Dose Admin Sodium Chloride 1,000 ml @ 999 mls/hr Q1H1M STAT IV 11/15/17 11:43 11/15/17 12:43 DC 11/15/17 12:12 999 MLS/HR ECG Indication: other (low blood pressure) Rate (beats per minute): 62 Rhythm: normal sinus Findings: no ectopy, other (No acute ST segment abnormalities) Comparison ECG Date: 08/12/2017 Change: no significant change (When compared to 08/12/2017) ED Course 1140: The patient was evaluated in room B7. A complete history and physical examination were performed. 1143: Ordered NSS 1,000 ml @ 999 mls/hr IV 1300: I reassessed the patient at this time. He is feeling better and resting comfortably. I discussed the results and treatment plan with the patient. I answered all pertaining questions that he had. He expressed understanding and verbalized agreement. The patient will be discharged home. Medical Decision Prior records/ancillary studies reviewed. Triage Nursing notes reviewed. The patient's history was concerning for near syncope. Differential diagnosis: Etiologies such as vasovagal event, infection, hypoglycemia, electrolyte abnormalities, cardiac sources, intracerebral event, toxicologic, neurologic, as well as others were entertained. The patient is a 72-year-old male who presented to the emergency department for an evaluation of lightheadedness and dizziness. The patient has a history of orthostatic hypotension and has a history of pituitary dysfunction. The patient has diabetes insipidus and missed his dose of prednisone yesterday. He states that he's been having problems with increased urination recently. He was at cardiac rehabilitation today and was found to be hypotensive. He has no fever. He has no complaints of chest pain or abdominal pain. The patient was found have orthostatic hypotension today. He was treated with IV fluids. On subsequent reevaluation he was feeling much better. I discussed the patient's laboratory and radiographic studies with him. He was encouraged to rest and avoid any strenuous activity. He was also encouraged to continue all medications as prescribed and call his primary care physician for recheck. Otherwise she was encouraged to return to the emergency department immediately if symptoms change worsen or the need arises. Medication Reconcilliation Current Medication List: was personally reviewed by me Blood Pressure Screening Patient's blood pressure: Low blood pressure Impression Primary Impression: Orthostatic hypotension Scribe Attestation The scribe's documentation has been prepared under my direction and personally reviewed by me in its entirety. I confirm that the note above accurately reflects all work, treatment, procedures, and medical decision making performed by me. Departure Information Dispostion Home / Self-Care Referrals Bravo Rosenbaum III, M.D. (PCP) Forms HOME CARE DOCUMENTATION FORM, IMPORTANT VISIT INFORMATION, WORK / SCHOOL INSTRUCTIONS Patient Instructions ED Hypotension Orthostatic, My [facility] Additional Instructions Call your family to schedule a follow-up appointment. Drink plenty clear liquids. Return to the emergency department if symptoms worsen or if the need arises. Continue all medications as prescribed.
[2017-11-15 12:36] LABS: ALT/SGPT 47 U/L (12-78); BLOOD UREA NITROGEN 18 mg/dl (7-18); BUN/CREATININE RATIO 11.6 (10-20); CALCIUM 8.5 mg/dl (8.5-10.1); CARBON DIOXIDE 29 mmol/L (21-32); CHLORIDE 107 mmol/L (98-107); CREATININE 1.55 mg/dl (0.60-1.40); GLUCOSE 114 mg/dl (70-99); MAGNESIUM 2.1 mg/dl (1.8-2.4); SODIUM 142 mmol/L (136-145)
[2017-11-15 12:41] LABS: URINE APPEARANCE CLEAR (CLEAR); URINE BILIRUBIN NEG (NEG); URINE COLOR YELLOW; URINE NITRITE NEG (NEG); URINE PH 5.5 (4.5-7.5); URINE SPECIFIC GRAVITY 1.011 (1.000-1.030); UROBILINOGEN NEG (NEG)
[2017-11-15 12:43] LABS: MANUAL MICROSCOPIC REQUIRED? NO; REVIEW REQ? NO
[2017-11-15 12:45] LABS: ALKALINE PHOSPHATASE 105 U/L (45-117); AST/SGOT 35 U/L (15-37); CKMB/CK RATIO 1.4 (0-3.0); THYROID STIMULATING HORMONE 0.205 uIu/ml (0.300-4.500)
[2017-11-15] MEDS ORDERED: [UNRECOGNIZED DRUG - CODE] PO (13:18)
[2017-11-15 13:42] VITALS: BP 124/70; PULSE 60; O2SAT 98
== END 2017-11-15 13:43 | disposition home or self-care (01) ==
LOC: EDBD 11:30 → EDSEX 11:30 → C.EDB 11:31
DX: I95.1 Orthostatic hypotension (principal); E23.2 Diabetes insipidus; I25.10 Atherosclerotic heart disease of native coronary artery without angina pectoris; J45.909 Unspecified asthma, uncomplicated; N18.3 Chronic kidney disease, stage 3 (moderate); N28.1 Cyst of kidney, acquired; F34.1 Dysthymic disorder; A77.40 Ehrlichiosis, unspecified; A69.20 Lyme disease, unspecified; K58.9 Irritable bowel syndrome, unspecified; E23.0 Hypopituitarism; I48.0 Paroxysmal atrial fibrillation; H49.22 Sixth [abducent] nerve palsy, left eye; E23.3 Hypothalamic dysfunction, not elsewhere classified; I25.2 Old myocardial infarction; Z95.5 Presence of coronary angioplasty implant and graft; Z79.82 Long term (current) use of aspirin; Z86.718 Personal history of other venous thrombosis and embolism; Z83.3 Family history of diabetes mellitus; Z82.49 Family history of ischemic heart disease and other diseases of the circulatory system; Z82.3 Family history of stroke

== ENCOUNTER 2019-11-22 14:26 | Observation (INO) ==
[2019-11-22] MEDS ORDERED: HYDROCODONE/ACETAMOPHEN 5/325MG TAB PO STA ×2 (15:16→16:22)
--- NOTE | 2019-11-22 15:30 | XRay Report ---
XR shoulder RT min 2V routine CLINICAL HISTORY: fall COMPARISON: None FINDINGS: Note is made of a markedly comminuted at least mildly displaced right humeral neck fractur e fracture that extends into the humeral head. Multiple fracture fragments are noted. Alignment of th e right glenohumeral joint is difficult to assess on this exam although is probably anatomic. Right a cromioclavicular joint is intact. IMPRESSION: Comminuted, displaced right humeral neck and head fracture. Alignment of the glenohumeral joint diffi cult to assess although probably anatomic with anterior displacement of the distal fragment. However, a CT could be obtained for further evaluation. ACT 112: Negative or not required by law. Electronically signed by: Channing Jorge M.D. 11/22/2019 3:29 PM
[2019-11-22] MEDS ORDERED: ONDANSETRON 4 MG OD TAB PO STA (15:36)
--- NOTE | 2019-11-22 17:18 | Pharmacy Report ---
ED Pharmacist Progress Note - ED Pharmacist Progress Note Date of Service:: November 22, 2019 Notes:: Per Dr. Yadav's request - called [facility] and cancelled prescription for [place]. Patient reports he had genetic testing done and is a CYP 2D6 poor metabolizer. Therefore plan is to change prescription to hydromorphone. Dr. Yadav to send alternate prescription.
[2019-11-22] MEDS ORDERED: ONDANSETRON INJ 2 MG/ML 2 ML VIAL IV STA ×2 (18:05→18:23)
[2019-11-22 18:13] LABS: Basophils # (auto) 0.05 K/uL (0-0.2); Basophils % (auto) 0.4 %; Eosinophils # (auto) 0.25 K/uL (0-0.5); Hematocrit (blood only) 43.7 % (42-52); Hemoglobin 14.5 g/dL (14.0-18.0); Immature Granulocytes # (auto) 0.04 K/uL (0.00-0.02); Immature Granulocytes % (auto) 0.3 %; Lymphocytes # (auto) 1.65 K/uL (1.2-3.4); Mean Corpuscular Hemoglobin 30.1 pg (25-34); Mean Corpuscular Hgb Conc 33.2 g/dL (32-36); Mean Corpuscular Volume 90.9 fL (80-100); Mean Platelet Volume 11.1 fL (7.4-10.4); Monocytes # (auto) 1.13 K/uL (0.11-0.59); Monocytes % (auto) 8.9 %; Neutrophils # (auto) 9.54 K/uL (1.4-6.5); Neutrophils % (auto) 75.4 %; Platelet Count 234 K/uL (130-400); RDW Coefficient of Variation 13.1 % (11.5-14.5); RDW Standard Deviation 43.6 fL (36.4-46.3); Red Blood Count 4.81 M/uL (4.7-6.1); White Blood Count 12.66 K/uL (4.8-10.8)
[2019-11-22] MEDS ORDERED: SODIUM CHLORIDE 0.9% 500 ML IV SCH (18:15)
--- NOTE | 2019-11-22 18:15 | CT Scan Report ---
CT SCAN OF THE RIGHT SHOULDER WITHOUT IV CONTRAST CLINICAL HISTORY: Fall. Fracture. COMPARISON STUDY: Radiographs of the right shoulder performed the same day 11/22/2019. TECHNIQUE: CT scan of the right shoulder is performed from the lower neck to the humeral shaft. Image s are reviewed in the axial, sagittal, and coronal planes. IV contrast was not administered for this examination. A dose lowering technique was utilized adhering to the principles of ALARA. CT DOSE: 524.47 mGy-cm FINDINGS: The skeletal structures are osteopenic. There is an impacted and comminuted fracture of the right humeral head and neck with numerous distracted fragments. No additional fracture is seen. Visu alized portions of the right scapula and the right clavicle are intact. The glenohumeral articulation is preserved. Fracture of the humeral head extends to the joint space. The acromioclavicular joint i s maintained noting mild productive degenerative change. Hemorrhage is present around the fracture si te and there is hemarthrosis of the right shoulder. No intramuscular hematoma is identified. The surr ounding musculature is normal and symmetric. There is no right axillary adenopathy. Partially imaged right upper lobe lung parenchyma appears clear. IMPRESSION: 1. There is a comminuted fracture of the right humeral head and neck with intra-articular extension a s detailed above. 2. No additional fracture is seen. 3. Hemorrhage is present around the fracture site and there is associated hemarthrosis. ACT 112: Negative or not required by law. Dictated: 11/22/2019 5:50 PM Transcribed: 11/22/2019 6:12 PM Demi [id number] [email or web address] Electronically signed by: Ben Mccauley M.D. 11/22/2019 6:14 PM
[2019-11-22 18:34] LABS: Alanine Aminotransferase 44 U/L (12-78); Albumin Level 2.8 gm/dl (3.4-5.0); Aspartate Aminotransferase 22 U/L (15-37); BUN Creatinine Ratio 14.1 (10-20); Blood Urea Nitrogen 22 mg/dl (7-18); Calcium 8.4 mg/dl (8.5-10.1); Carbon Dioxide 26 mmol/L (21-32); Chloride 112 mmol/L (98-107); Creatinine Clr Calc Pharmacy 50.8 ml/min; Est GFR (African American) 50.7; Est GFR (Non-African American) 43.8; Glucose 189 mg/dl (70-99); Magnesium 2.1 mg/dl (1.8-2.4); Potassium 3.7 mmol/L (3.5-5.1); Sodium 143 mmol/L (136-145)
[2019-11-22 18:45] LABS: Albumin Globulin Ratio 0.8 (0.9-2); Alkaline Phosphatase 89 U/L (45-117); Bilirubin,Total 0.4 mg/dl (0.2-1); Globulin 3.6 gm/dl (2.5-4.0); Total Protein 6.4 gm/dl (6.4-8.2); Troponin I < 0.015 ng/ml (0-0.045)
--- NOTE | 2019-11-22 19:20 | History & Physical Report ---
Date of Service November 22, 2019 Assessment & Plan (1) Syncope: -Admit to 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; received Vicodin 2 doses in the ER -Suspect syncopal event is secondary to narcotics given in the setting of cytochrome P450 deficiency -Initial troponin negative, EKG without acute ST changes -Continue IVF -Serial cardiac enzymes, resting echo -Monitor orthostatic BPs (2) Right humeral fracture: -Patient presenting after a mechanical fall -Ortho consult -Pain medications with caution secondary to cytochrome P4 50 deficiency (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: -Monitor prescriptions closely (4) CAD (coronary artery disease): -Appears stable, no reports of chest pain -Continue aspirin, beta-rahul, ARB (5) Paroxysmal A-fib: -Rate controlled on beta-rahul, will continue -Anticoagulated on Pradaxa (noted the patient refuses to take twice daily); will hold for now due to possible invasive procedure regarding right humeral fracture, no need to bridge (6) Diabetes insipidus: (7) Panhypopituitarism: -Continue chronic prednisone and DDAVP (8) Type 2 diabetes mellitus: -Diet controlled -Hgb A1c 7.3 07/2019 -Conservative NovoLog coverage ordered secondary to cytochrome P450 deficiency (9) Hypothyroidism: -TSH 5.94, normal free T4 0.8 -Continue home dose levothyroxine (10) CKD (chronic kidney disease) stage 3, GFR 30-59 ml/min: - baseline creat ~ 1.5 - creat noted to be 1.5 today - continue to monitor, avoid nephrotoxic agents when able (11) Hx of Lyme disease: -Takes Diflucan as needed and tetracycline on a 3-day on/3 of cycle (12) BRANDY (obstructive sleep apnea): -CPAP as per home settings (13) DVT prophylaxis: -SQ heparin History of Present Illness Chief Complaint: Right arm pain Primary Care Provider: Bravo Rosenbaum MD 74-year-old male who presents the ED for evaluation of right arm pain after falling down the steps. Patient reports he tripped over the second to last stair and fell to the ground onto his right side. Reports he had immediate pain in his right arm. He then presented to the ED for further evaluation. With a fall, patient denies any associated lightheadedness, dizziness, diaphoresis, syncopal event. No preceding chest pain or shortness of breath. In the ED, patient was found to have a right humerus fracture. Patient is also noted to have history of cytochrome P4 52 D6 enzyme deficiency and does not metabolize narcotics well. He was given 2 doses of Vicodin in the ED. While at CT scan, patient had a brief syncopal event while seated in the wheelchair. When he was brought back to the room, patient was hypotensive. He received IVF with improvement in blood pressure. Patient reports he otherwise has been feeling well recently. No fevers or chills. Denies abdominal pain, nausea, vomiting, diarrhea. No urinary symptoms. At the time of our exam, patient is resting in bed, complains of some nausea however in no acute distress. Allergies Allergy/AdvReac Type Severity Reaction Status Date / Time fluticasone [From Flonase] Allergy Unknown Flushing, Verified 01/22/19 05:50 ITCHY ibuprofen Allergy Unknown flushed, Verified 01/22/19 05:50 itchy Home Medications Home Medications Medication Instructions Recorded Confirmed Type Pradaxa 75 mg PO DAILY 12/20/18 11/22/19 History aspirin [Aspir-81] 81 mg PO HS 12/20/18 11/22/19 History atenolol 6.25 mg PO BID 12/20/18 11/22/19 History desmopressin 0.025 mg PO Q12 12/20/18 11/22/19 History levothyroxine 50 mcg PO HS 12/20/18 11/22/19 History olanzapine [Zyprexa] 1.25 mg PO HS 12/20/18 11/22/19 History olmesartan [Benicar] 40 mg PO BID 12/20/18 11/22/19 History albuterol sulfate 2 puff INHALATION QID PRN 01/22/19 11/22/19 History ergocalciferol (vitamin D2) 50,000 unit PO .[id number] 11/22/19 11/22/19 History [Vitamin D2] fluconazole 50 mg PO UD PRN 11/22/19 11/22/19 History ketoconazole 1 applic TOPICAL BID PRN 11/22/19 11/22/19 History multivitamin 1 tab PO Q OTHER DAY 11/22/19 11/22/19 History ondansetron 4 mg PO Q8H PRN 11/22/19 11/22/19 History prednisone 5 mg PO DAILY 11/22/19 11/22/19 History sodium chloride [[place]ter Nasal] 2 spray INTRANASAL .Q2HR PRN 11/22/19 11/22/19 History tetracycline 250 mg PO UD 11/22/19 11/22/19 History vitamin B complex 1 tab PO Q OTHER DAY 11/22/19 11/22/19 History Past Med/Surg History Medical History Asthma AT NIGHT/RELATED TO CHRONIC RESPIRATORY INFECTION/EHRLICHTHIOSIS CAD (coronary artery disease) 05/2017: NSTEMI s/p HARLEY to LAD x2 CKD (chronic kidney disease) stage 3, GFR 30-59 ml/min 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 1A2 hypersensitivity -medications broken down by this mechanism work too quickly. (confirmed by DNA testing) History of myocardial infarction Hx of Lyme disease 1984 DX Hyperlipidemia Hypertension Hypothyroidism Nausea and vomiting after administration of anesthetic agent BRANDY (obstructive sleep apnea) Panhypopituitarism (Chronic) Paroxysmal A-fib Pituitary gland enlarged "INFLAMMATION" Type 2 diabetes mellitus Varicose veins of legs Surgical History H/O umbilical hernia repair History of colonoscopy History of sinus surgery Family History Father Family history of cancer of spinal cord Social History Preferred Language: Armenian Communication Ability: Effective [place] Drill Operator Required: No Beliefs That Will Affect Care: None Current Living Situation: Spouse Other Information That Helps Us Care for You: No Feels Safe at Home: Yes Safety Concerns: Feels Safe At This Time Smoking Status: Never smoker Do You Dip or Chew Tobacco: No ; Hx Alcohol Use: No Hx Substance Use: No Review of Systems Review of Systems: ROS per HPI, all other systems reviewed and negative Physical Exam Physical Exam: Please refer to Dr. Miranda's addendum for physical exam. Results & Data Vital Signs (Past 12 Hours) Vital Signs Temp Pulse Pulse Resp BP BP Pulse Ox 11/22/19 18:36 96 11/22/19 18:30 56 L 14 11/22/19 18:26 61 15 102/52 L 11/22/19 18:01 57 L 18 11/22/19 17:58 59 L 18 73/48 L 11/22/19 17:16 78 18 116/72 98 11/22/19 14:33 36.7 C 69 18 112/67 98 Laboratory Results Short CBC 11/22/19 11/22/19 Range/Units 18:00 18:00 WBC 12.66 H (4.8-10.8) K/uL Hgb 14.5 (14.0-18.0) g/dL Hct 43.7 (42-52) % Plt Count 234 (130-400) K/uL Glucose 189 H (70-99) mg/dl BMP 11/22/19 18:00 Sodium 143 Potassium 3.7 Chloride 112 H Carbon Dioxide 26 BUN 22 H Creatinine 1.55 H Glucose 189 H Calcium 8.4 L Cardiac Enzymes 11/22/19 Range/Units 18:00 Troponin I < 0.015 (0-0.045) ng/ml Liver Function 11/22/19 Range/Units 18:00 Total Bilirubin 0.4 (0.2-1) mg/dl AST 22 (15-37) U/L ALT 44 (12-78) U/L Alkaline Phosphatase 89 (45-117) U/L Albumin 2.8 L (3.4-5.0) gm/dl Diagnostic Findings SHOULDER CT IMPRESSION: 1. There is a comminuted fracture of the right humeral head and neck with intra- articular extension as detailed above. 2. No additional fracture is seen. 3. Hemorrhage is present around the fracture site and there is associated hemarthrosis. SHOULDER X-RAY IMPRESSION: Comminuted, displaced right humeral neck and head fracture. Alignment of the glenohumeral joint difficult to assess although probably anatomic with anterior displacement of the distal fragment. However, a CT could be obtained for further evaluation. Code Status & VTE Plan Code Status Patient is a full code as per Dr. Miranda's discussion with him. VTE Prophylaxis Plan VTE Prophylaxis will be ordered: Yes Supervising Physician Co-Signing Physician Notes Patient is a 74 yr male with history of cytochrome P4 52 D6 enzyme deficiency, paroxysmal A. fib, DM 2, CKD III and other problems presents with H/O mechanical fall resulting in right humerus fracture. Patient received 2 doses of Vicodin in ED for pain control, after which patient had a syncopal event. Please review HPI for complete details of presentation. Physical Exam: Vitals signs as noted above General Appearance:Moderately built and nourished, no apparent distress Head: normocephalic, Atraumatic Eyes: normal inspection, EOMI Neck: supple, Trachea midline Respiratory/Chest: Normal breath sounds, CTA, No accessory muscle use Cardiovascular: S1, S2, bradycardia, No murmur Abdomen/GI:Soft, Non tender, Bowel sounds present Extremities/Musculoskelatal:normal inspection, no edema, R arm in sling. Neurologic/Psych:AAOX3, grossly no focal neurological deficits Skin: normal color, warm Syncope Likely due to Pain/pain meds Check resting echo, monitor on telemetry Check orthostatics Minimize narcotic use as able Right humerus fracture Mechanical fall Hold Pradaxa for now till Ortho eval Orthopedics consulted I personally reviewed the record. Patient is interviewed and examined at bedside . Patient's care is coordinated with Frances Frost STATION ENGINEER. Please refer to the documentation above for details of patient's presentation and for discussion of other issues. (1) Syncope Syncope type: unspecified Qualified Code(s): R55 - Syncope and collapse
[2019-11-22] MEDS ORDERED: ACETAMINOPHEN 325 MG TAB PO PRN (19:46)
[2019-11-22] MEDS ORDERED: ACETAMINOPHEN 1,000 MG/100 ML VIAL IV PRN (19:46)
[2019-11-22] MEDS ORDERED: ONDANSETRON INJ 2 MG/ML 2 ML VIAL IV PRN (19:46)
[2019-11-22] MEDS ORDERED: HYDROmorphone INJ 0.5 MG/0.5 ML SYR IV PRN (19:46)
[2019-11-22] MEDS ORDERED: CARBOHYDRATES FOR HYPOGLYCEMIA PO PRN (19:57)
[2019-11-22] MEDS ORDERED: GLUCOSE 10 TABS/TUBE PO PRN (19:57)
[2019-11-22] MEDS ORDERED: DEXTROSE 50% 50 ML SYRINGE IV PRN (19:57)
[2019-11-22] MEDS ORDERED: GLUCOSE 40% GEL 15 GM TUBE PO PRN (19:57)
[2019-11-22] MEDS ORDERED: GLUCAGON FOR INJ 1 MG VIAL SQ PRN (19:57)
[2019-11-22] MEDS ORDERED: TETRACYCLINE 250 MG PO SCH (20:15)
[2019-11-22] MEDS: SODIUM CHLORIDE 0.9% 1000ML 1,000 ML IV SCH (20:17)
--- NOTE | 2019-11-22 21:02 | Emergency Department Note ---
Entered by Carol Ann Schmidt acting as a scribe for Bravo Yadav MD ED Provider Note CHIEF COMPLAINT: fall HISTORY OF PRESENT ILLNESS: The patient is a 74 year old M who presents to the Emergency Room with complaints of an episode of a fall that occurred prior to arrival. He states that he was walking down steps when he missed the last step and stumbled. He adds that he fell after he stumbled. He notes that he fell directly on his right shoulder. He states that the majority of his pain is located, 3 inches below his right shoulder. He denies hitting his head from the fall. He notes that he was feeling good, prior to his fall today. He states that he currently takes Pradaxa for a history of A Fib. He notes that he regularly checks up with an orthopedic surgeon at [facility]. Pt denies LOC, headache, fevers, chills, diaphoresis, visual changes, neck pain, chest pain, breathing difficulties, nausea, vomiting, hip pain, abdominal pain, back pain, head pain, melena, hematochezia, urinary symptoms, numbness, weakness, lymphadenopathy, rash, or other complaints. REVIEW OF SYSTEMS: See HPI for pertinent positives and negatives. A total of ten systems were reviewed and were otherwise negative. PMHx/PSHx: Asthma, CAD, CKD, diabetes, gastroparesis, lymes disease, HLD, hypothyroidism, BRANDY SOCIAL HISTORY: Patient lives at home. PHYSICAL EXAM: GENERAL: Awake, alert, uncomfortable-appearing, in no distress HENT: Normocephalic, atraumatic. Oropharynx unremarkable. EYES: PERRL. Normal conjunctiva. Sclera non-icteric. NECK: Inspection normal. Non-tender. Supple. No nuchal rigidity. FROM. No masses. RESPIRATORY: Clear to auscultation. No wheezes. No rales. Normal respiratory effort. CARDIAC: Normal rate. Normal rhythm. No murmurs. No rubs. Extremities warm and well perfused. Pulses equal. No JVD. GI: Soft, non-distended. No tenderness to palpation. No rebound or guarding. No masses. RECTAL: Deferred. MUSCULOSKELETAL: Atraumatic. Chest examination reveals no tenderness. The back is symmetrical on inspection without obvious abnormality. There is no CVA tenderness to palpation. No joint edema. No clavicle tenderness. No C-spine tenderness. Tenderness to right deltoid region. LOWER EXTREMITIES: Calves are equal size bilaterally and non-tender. No edema. No discoloration. NEURO: Normal sensorium. No sensory deficits. ROM limited significantly due to pain. SKIN: No rash or jaundice noted. EMERGENCY DEPARTMENT COURSE: 1508: The patient was evaluated in room C12A, and a complete history and physical examination were performed. 1619: The patient states that he is still having pain. 1625: The ED pharmacist is looking into patients medication metabolism issue. 1752: The patient has a syncopal episode at CAT scan. The patient is currently dizzy and is hypotensive. IV lock, labs, and a EKG will be performed on the patient. I am calling to admit the patient for admission. 1827: I reviewed the patient's case with JD Verma, for Dr. Miranda, Kevin Hospitalist. She will evaluate the patient for further management. MEDICAL DECISION MAKING: Triage Nursing notes reviewed and agree them. The patient's history was concerning for traumatic injury. Differential diagnosis: Etiologies such as fracture, dislocation, neurovascular compromise, compartment syndrome, soft tissue injury, as well as others were entertained. Physical examination: Consistent with an isolated right shoulder injury. ER treatment provided: Oral Henderson Sling Ice pack Zofran The patient was then going to CT imaging to further evaluate the fracture and had a syncopal episode. He was brought back to the emergency department after he recovered from the 10 to 15-second episode. He was feeling better and then started to feel somewhat dizzy again and had a blood pressure of 60 systolic. He was given a small bolus of normal saline and his symptoms resolved. On reassessment the patient felt better. Diagnostics interpreted by me: ECG: Sinus rhythm noted. No significant dysrhythmia. The labs revealed an unremarkable CBC and chemistry panel except for mild leukocytosis. Imaging studies: X-ray imaging of the right shoulder revealed comminuted fracture. CT imaging confirmed fracture. No dislocation on CT imaging. The patient has a proximal right humerus fracture. He suffered no other injury. He was doing relatively well and then had a syncopal episode. He denies any syncopal symptoms leading up to the accidental fall. He then had a transient episode of low blood pressure as well. This could be related to the pain medi cation but considering that he is living alone and had the episode further management in the hospital is necessary. I gave my usual and customary discussion regarding this issue. Consultation: A consultation was placed with the [facility] hospitalist. The case was discussed and diagnostics were reviewed. The patient was evaluated in the ER for further treatment. IMPRESSION: Closed right humerus fracture, initial encounter and syncope PLAN: Admitted as inpatient. The scribe's documentation has been prepared under my direction and personally reviewed by me in its entirety. I confirm that the note above accurately reflects all work, treatment, procedures, and medical decision making performed by me. 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 1A2 hypersensitivity -medications broken down by this mechanism work too quickly. (confirmed by DNA testing) History of myocardial infarction Hx of Lyme disease 1984 DX Hyperlipidemia Hypertension Hypothyroidism Nausea and vomiting after administration of anesthetic agent BRANDY (obstructive sleep apnea) Panhypopituitarism (Chronic) Paroxysmal A-fib Pituitary gland enlarged "INFLAMMATION" Type 2 diabetes mellitus Varicose veins of legs Surgical History H/O umbilical hernia repair History of colonoscopy History of sinus surgery Family History Father Family history of cancer of spinal cord Social History Preferred Language: Jamaican Communication Ability: Effective Rn Surgery Icu Required: No Beliefs That Will Affect Care: None Current Living Situation: Spouse Other Information That Helps Us Care for You: No Feels Safe at Home: Yes Safety Concerns: Feels Safe At This Time Smoking Status: Never smoker Do You Dip or Chew Tobacco: No ; Hx Alcohol Use: No Hx Substance Use: No Results & Data Vital Signs Vital Signs - 24 hr 11/22/19 14:33 11/22/19 17:16 11/22/19 17:58 Temperature 36.7 C Temperature Source Oral Pulse Rate 69 59 L Pulse Rate [Apical] 78 Respiratory Rate 18 18 18 Blood Pressure 112/67 73/48 L Blood Pressure [Right Arm] 116/72 Blood Pressure Mean 82 51 Blood Pressure Mean [Right Arm] 86 Pulse Oximetry 98 98 Oxygen Delivery Method Room Air Sepsis Recent Fever Within 48 Hours No Sepsis New/Unexplained Change in Mental Status No Sepsis Action Taken by Nursing No Action Required 11/22/19 18:01 Temperature Temperature Source Pulse Rate 57 L Pulse Rate [Apical] Respiratory Rate 18 Blood Pressure Blood Pressure [Right Arm] Blood Pressure Mean Blood Pressure Mean [Right Arm] Pulse Oximetry Oxygen Delivery Method Sepsis Recent Fever Within 48 Hours Sepsis New/Unexplained Change in Mental Status Sepsis Action Taken by Group Home Medications Current Medication List: was personally reviewed by me Laboratory Data Attestation: I reviewed the patient's lab results. Result diagrams: 11/22/19 18:00 11/22/19 18:00 Lab Results 11/22/19 11/22/19 Range/Units 18:00 18:00 WBC 12.66 H (4.8-10.8) K/uL RBC 4.81 (4.7-6.1) M/uL Hgb 14.5 (14.0-18.0) g/dL Hct 43.7 (42-52) % MCV 90.9 (80-100) fL MCH 30.1 (25-34) pg MCHC 33.2 (32-36) g/dL RDW Std Deviation 43.6 (36.4-46.3) fL RDW Coeff of Xavi 13.1 (11.5-14.5) % Plt Count 234 (130-400) K/uL MPV 11.1 H (7.4-10.4) fL Immature Gran % (Auto) 0.3 % Neut % (Auto) 75.4 % Lymph % (Auto) 13.0 % [place] % (Auto) 8.9 % Eos % (Auto) 2.0 % Baso % (Auto) 0.4 % Immature Gran # (Auto) 0.04 H (0.00-0.02) K/uL Neut # (Auto) 9.54 H (1.4-6.5) K/uL Lymph # (Auto) 1.65 (1.2-3.4) K/uL [place] # (Auto) 1.13 H (0.11-0.59) K/uL Eos # (Auto) 0.25 (0-0.5) K/uL Baso # (Auto) 0.05 (0-0.2) K/uL Sodium 143 (136-145) mmol/L Potassium 3.7 (3.5-5.1) mmol/L Chloride 112 H (98-107) mmol/L Carbon Dioxide 26 (21-32) mmol/L Anion Gap 5.0 (3-11) BUN 22 H (7-18) mg/dl Creatinine 1.55 H (0.6-1.4) mg/dl Est Cr Clr Drug Dosing 50.8 ml/min Est GFR ( Amer) 50.7 Est GFR (Non-Af Amer) 43.8 BUN/Creatinine Ratio 14.1 (10-20) Glucose 189 H (70-99) mg/dl Calcium 8.4 L (8.5-10.1) mg/dl Magnesium 2.1 (1.8-2.4) mg/dl Total Bilirubin 0.4 (0.2-1) mg/dl AST 22 (15-37) U/L ALT 44 (12-78) U/L Alkaline Phosphatase 89 (45-117) U/L Troponin I < 0.015 (0-0.045) ng/ml Total Protein 6.4 (6.4-8.2) gm/dl Albumin 2.8 L (3.4-5.0) gm/dl Globulin 3.6 (2.5-4.0) gm/dl Albumin/Globulin Ratio 0.8 L (0.9-2) TSH 5.940 H (0.300-4.500) uIu/ml Free T4 0.80 (0.8-1.6) ng/dl Administered Medications Hydromorphone HCl (Dilaudid) 0.25 mg IV Q8H PRN PRN Reason: Pain Stop: 01/09/20 19:45 Last Admin: 11/22/19 20:21 Dose: 0.25 mg Documented by: [id number] Sodium Chloride (Nss 1000ml) 1,000 mls @ 80 mls/hr IV .[id number] KATIA Stop: 12/22/19 19:59 Last Admin: 11/22/19 20:17 Dose: 80 mls/hr Documented by: [id number] Discontinued Medications Hydrocodone Bitart/Acetaminophen ([place]enderson 5/325) 1 tab PO NOW STA Stop: 11/22/19 15:17 Last Admin: 11/22/19 15:25 Dose: 1 tab Documented by: [id number] Hydrocodone Bitart/Acetaminophen (Henderson 5/325) 1 tab PO NOW STA Stop: 11/22/19 16:23 Last Admin: 11/22/19 16:38 Dose: 1 tab Documented by: [id number] Sodium Chloride (Nss) 500 mls @ 999 mls/hr IV .Q31M KATIA Stop: 11/22/19 18:45 Last Infusion: 11/22/19 19:49 Dose: 0 mls/hr Documented by: [id number] Admin: 11/22/19 18:50 Dose: 999 mls/hr Documented by: [id number] Ondansetron HCl (Zofran Odt) 4 mg PO NOW STA Stop: 11/22/19 15:37 Last Admin: 11/22/19 15:39 Dose: 4 mg Documented by: [id number] Ondansetron HCl (Zofran) 4 mg IV NOW STA Stop: 11/22/19 18:06 Last Admin: 11/22/19 18:49 Dose: 4 mg Documented by: [id number] Ondansetron HCl (Zofran) 4 mg IV NOW STA Stop: 11/22/19 18:24 Last Admin: 11/22/19 19:49 Dose: Not Given Documented by: [id number] Imaging Data Radiologist's Impression: Radiology results as stated below per my review and the radiologist's interpretation: XR shoulder RT min 2V routine CLINICAL HISTORY: fall COMPARISON: None FINDINGS: Note is made of a markedly comminuted at least mildly displaced right humeral neck fracture fracture that extends into the humeral head. Multiple fracture fragments are noted. Alignment of the right glenohumeral joint is difficult to assess on this exam although is probably anatomic. Right acromioclavicular joint is intact. IMPRESSION: Comminuted, displaced right humeral neck and head fracture. Alignment of the glenohumeral joint difficult to assess although probably anatomic with anterior displacement of the distal fragment. However, a CT could be obtained for further evaluation. ACT 112: Negative or not required by law. Electronically signed by: Channing Jorge M.D. 11/22/2019 3:[address] SCAN OF THE RIGHT SHOULDER WITHOUT IV CONTRAST CLINICAL HISTORY: Fall. Fracture. COMPARISON STUDY: Radiographs of the right shoulder performed the same day 11/22. TECHNIQUE: CT scan of the right shoulder is performed from the lower neck to the humeral shaft. Images are reviewed in the axial, sagittal, and coronal planes. IV contrast was not administered for this examination. A dose lowering technique was utilized adhering to the principles of ALARA. CT DOSE: 524.47 mGy-cm FINDINGS: The skeletal structures are osteopenic. There is an impacted and c omminuted fracture of the right humeral head and neck with numerous distracted fragments. No additional fracture is seen. Visualized portions of the right scapula and the right clavicle are intact. The glenohumeral articulation is preserved. Fracture of the humeral head extends to the joint space. The acromioclavicular joint is maintained noting mild productive degenerative change. Hemorrhage is present around the fracture site and there is hemarthrosis of the right shoulder. No intramuscular hematoma is identified. The surrounding musculature is normal and symmetric. There is no right axillary adenopathy. Partially imaged right upper lobe lung parenchyma appears clear. IMPRESSION: 1. There is a comminuted fracture of the right humeral head and neck with intra- articular extension as detailed above. 2. No additional fracture is seen. 3. Hemorrhage is present around the fracture site and there is associated hemarthrosis. ACT 112: Negative or not required by law. Dictated: 11/22/2019 5:50 PM Transcribed: 11/22/2019 6:12 PM Demi [id number] [email or web address] Electronically signed by: Ben Mccauley M.D. 11/22/2019 6:14 PM ECG Data Attestation: I personally reviewed and interpreted this ECG as follows: Indication: + other (fall) Rate (beats per minute): 61 Rhythm: sinus rhythm (with a PVC) ECG Intervals/blocks: + Normal QRS ECG [place]: + Normal ECG Findings: + Other (nonspecific ST change) Prescription Drug Monitoring [place] Drug Monitoring Program reviewed and no issues identified Blood Pressure Blood Pressure Findings: Low blood pressure Blood Pressure Disposition: further management by hospitalist Discharge Plan Visit Data *Final* Discharge Date/Time: 11/22/19 18:58 Chief Complaint: Fall Stated Complaint: fall/ R arm pain ED Provider: Bravo Yadav Discharge Problem: Closed right humeral fracture, Syncope Patient Disposition: Admitted As Inpatient Discharge Instructions Interventions: ED Discharge Assessment Last Done: 11/22/19 18:58 Discharge Problem: Closed right humeral fracture Qualifiers: Encounter type: initial encounter Humerus Location: proximal Fracture morphology: other fracture Fracture alignment: displaced Qualified Code(s): S42.291A - Other displaced fracture of upper end of right humerus, initial encounter for closed fracture Syncope Qualifiers: Syncope type: unspecified Qualified Code(s): R55 - Syncope and collapse The scribe's documentation has been prepared under my direction and personally reviewed by me in its entirety. I confirm that the note above accurately reflects all work, treatment, procedures, and medical decision making performed by me.
[2019-11-22] MEDS: HEPARIN SOD 5,000 UNIT/0.5 ML VIAL SQ SCH (22:03)
[2019-11-22] MEDS: ATENOLOL 25 MG TABLET PO SCH (22:04)
[2019-11-22] MEDS: OLANZAPINE 2.5 MG TAB PO SCH (22:05)
[2019-11-22] MEDS: ASPIRIN 81 MG ECTAB PO SCH (22:05)
[2019-11-22] MEDS: LEVOTHYROXINE SODIUM 25 MCG TABLET PO SCH (22:07)
[2019-11-22] MEDS: DESMOPRESSIN ACETATE 0.1 MG TAB PO SCH (22:07)
[2019-11-22] MEDS: INSULIN ASPART 100 UNITS/ML 3 ML PEN SC SCH (22:08)
[2019-11-22] MEDS: OLMESARTAN MEDOXOMIL 40 MG TAB PO SCH (22:08)
[2019-11-23] MEDS: HEPARIN SOD 5,000 UNIT/0.5 ML VIAL SQ SCH ×3 (05:32→21:07)
[2019-11-23 05:52] LABS: Hematocrit (blood only) 43.7 % (42-52); Mean Corpuscular Hemoglobin 29.9 pg (25-34); Mean Corpuscular Volume 93.2 fL (80-100); Platelet Count 201 K/uL (130-400); RDW Coefficient of Variation 13.4 % (11.5-14.5); RDW Standard Deviation 45.8 fL (36.4-46.3); Red Blood Count 4.69 M/uL (4.7-6.1); White Blood Count 10.53 K/uL (4.8-10.8)
[2019-11-23 06:24] LABS: BUN Creatinine Ratio 12.8 (10-20); Calcium 8.1 mg/dl (8.5-10.1); Creatinine Clr Calc Pharmacy 48.7 ml/min; Est GFR (African American) 48.8; Est GFR (Non-African American) 42.1; Potassium 4.2 mmol/L (3.5-5.1)
[2019-11-23 06:30] LABS: Appearance Urine Clear (Clear); Bilirubin Urine Negative (Negative); Blood Urine Negative (Negative); Color Urine Yellow; Glucose Urine UA Negative (Negative); Ketones Urine Negative (Negative); Protein Urine Negative (Negative); Specific Gravity Urine 1.021 (1.000-1.030)
[2019-11-23 06:31] LABS: Leukocyte Esterase Urine Negative (Negative); Nitrite Urine Negative (Negative); Urobilinogen Urine Negative (Negative)
[2019-11-23] MEDS: ATENOLOL 25 MG TABLET PO SCH ×2 (08:05→20:09)
[2019-11-23] MEDS: OLMESARTAN MEDOXOMIL 40 MG TAB PO SCH ×2 (08:06→20:08)
[2019-11-23] MEDS: predniSONE 5 MG TAB PO SCH (08:07)
[2019-11-23] MEDS: SODIUM CHLORIDE 0.9% 1000ML 1,000 ML IV SCH ×2 (08:17→20:13)
[2019-11-23] MEDS: INSULIN ASPART 100 UNITS/ML 3 ML PEN SC SCH ×4 (08:19→21:06)
[2019-11-23] MEDS: DESMOPRESSIN ACETATE 0.1 MG TAB PO SCH ×2 (08:35→20:10)
[2019-11-23] MEDS ORDERED: MULTIVITAMIN TAB PO SCH (09:00)
[2019-11-23] MEDS ORDERED: VITAMIN B COMPLEX TAB PO SCH (09:00)
--- NOTE | 2019-11-23 11:32 | Orthopedic Consultation ---
Date of Consultation November 23, 2019 Assessment & Plan (1) Fracture of proximal end of right humerus: Continue immobilizer sling. Pain control--patient would prefer Tylenol prn. Discussed the films and hx with Dr. Billingsley and will also discuss the films with Dr. Donovan. The patient will likely require surgical intervention, probably right shoulder hemiarthroplasty vs. reverse total shoulder arthroplasty vs. less likely an ORIF of the fx. If his pain is controlled, he may be able to have the procedure done as an outpatient. If he is admitted for a longer time, the procedure could possibly be done while inpatient. Will continue to follow the patient and plan accordingly for definitive tx. History of Present Illness Reason for Consultation: right shoulder pain and fracture Attending Physician: Vanessa Ramirez MD History of Present Illness This is a patient who sustained a fall onto his right side yesterday afternoon around 2 PM. He had significant pain in the right shoulder and was brought to [facility] ER. X-rays noted a displaced proximal humerus fx of the right shoulder. He later had a CT scan that noted angulation to the proximal humerus shaft, as well as comminution and intra-articular extension into the humeral head. He was placed in an immobilizer sling and admitted. He states the right shoulder pain is much better today. He has the ability to move his fingers much better today than he could last evening. No other complaints of the right UE. Allergies Allergy/AdvReac Type Severity Reaction Status Date / Time fluticasone [From Flonase] Allergy Unknown Flushing, Verified 01/22/19 05:50 ITCHY ibuprofen Allergy Unknown flushed, Verified 01/22/19 05:50 itchy Home Medications Home Medications Medication Instructions Recorded Confirmed Type Pradaxa 75 mg PO DAILY 12/20/18 11/22/19 History aspirin [Aspir-81] 81 mg PO HS 12/20/18 11/22/19 History atenolol 6.25 mg PO BID 12/20/18 11/22/19 History desmopressin 0.025 mg PO Q12 12/20/18 11/22/19 History levothyroxine 50 mcg PO HS 12/20/18 11/22/19 History olanzapine [Zyprexa] 1.25 mg PO HS 12/20/18 11/22/19 History olmesartan [Benicar] 40 mg PO BID 12/20/18 11/22/19 History albuterol sulfate 2 puff INHALATION QID PRN 01/22/19 11/22/19 History ergocalciferol (vitamin D2) 50,000 unit PO .[id number] 11/22/19 11/22/19 History [Vitamin D2] fluconazole 50 mg PO UD PRN 11/22/19 11/22/19 History ketoconazole 1 applic TOPICAL BID PRN 11/22/19 11/22/19 History multivitamin 1 tab PO Q OTHER DAY 11/22/19 11/22/19 History ondansetron 4 mg PO Q8H PRN 11/22/19 11/22/19 History prednisone 5 mg PO DAILY 11/22/19 11/22/19 History sodium chloride [Alburtis Nasal] 2 spray INTRANASAL .Q2HR PRN 11/22/19 11/22/19 History tetracycline 250 mg PO UD 11/22/19 11/22/19 History vitamin B complex 1 tab PO Q OTHER DAY 11/22/19 11/22/19 History Patient History Medical History Asthma AT NIGHT/RELATED TO CHRONIC RESPIRATORY INFECTION/EHRLICHTHIOSIS CAD (coronary artery disease) 05/2017: NSTEMI s/p HARLEY to LAD x2 CKD (chronic kidney disease) stage 3, GFR 30-59 ml/min 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 1A2 hypersensitivity -medications broken down by this mechanism work too quickly. (confirmed by DNA testing) History of myocardial infarction Hx of Lyme disease 1984 DX Hyperlipidemia Hypertension Hypothyroidism Nausea and vomiting after administration of anesthetic agent BRANDY (obstructive sleep apnea) Panhypopituitarism (Chronic) Paroxysmal A-fib Pituitary gland enlarged "INFLAMMATION" Type 2 diabetes mellitus Varicose veins of legs Surgical History H/O umbilical hernia repair History of colonoscopy History of sinus surgery Family History Father Family history of cancer of spinal cord Social History Preferred Language: Romansh Communication Ability: Effective Special Technical Operations Officer Required: No Beliefs That Will Affect Care: None Current Living Situation: Spouse Other Information That Helps Us Care for You: No Feels Safe at Home: Yes Safety Concerns: Feels Safe At This Time Smoking Status: Never smoker Do You Dip or Chew Tobacco: No ; Hx Alcohol Use: No Hx Substance Use: No Physical Exam Constitutional: WD/WN, vitals as above no acute distress ENMT: external ear and nose normal, oropharynx normal Neck: trachea midline, no thyromegaly Musculoskeletal: Shoulder: + limited ROM (right shoulder secondary to pain and fracture) and + joint line tenderness (right proximal humerus, diffuse); no deformity, no skin erythema and no ecchymosis Ankle: + joint line tenderness (right proximal humerus, diffuse) Skin: no rashes, warm and dry Neurologic: normal touch/pain/proprioception Right upper extremity: fingers are mobile. Sensation intact to light touch. 2/4 radial pulse. Psychiatric: A+Ox3, euthymic affect Results & Data Vital Signs (Past 12 Hours) Vital Signs Temp Pulse Pulse Resp BP Pulse Ox 11/23/19 07:13 69 11/23/19 07:12 37.2 C 73 16 161/81 H 95 11/23/19 04:09 36.4 C L 63 18 144/81 H 96 11/23/19 03:39 62 18 95 11/23/19 00:12 36.6 C 61 18 121/77 96 11/23/19 00:04 86
[2019-11-23] MEDS ORDERED: DOCUSATE SODIUM 100 MG CAP PO ONE (12:41)
[2019-11-23] MEDS: POLYETHYLENE (MIRALAX) 17 GM PACK PO SCH (13:00)
--- NOTE | 2019-11-23 15:56 | Hospitalist Progress Note ---
Date of Service November 23, 2019 Assessment & Plan (1) Right humeral fracture: Admitted with right shoulder pain after sustaining a fall: X-ray of right shoulder: Shows severely comminuted but minimally displaced right proximal humerus fracture. Patient lost his balance as he was stepping down off of his porch and stumbled into the yard. He had a ground-level fall directly onto his right shoulder. x-rays and CT scan of the right shoulder :show a severely comminuted but minimally displaced fracture of the right proximal humerus. It appears that the articular surface is a completely separate fracture fragment. There are numerous comminuted fracture fragments of the greater and lesser tuberosity. There is an avulsion fracture of what appears to be the greater tuberosity that is displaced proximally to the level of the glenohumeral joint. His bones appear generally osteopenic. He does appear to have some mild pre- existing arthritis of the glenohumeral joint. Appreciate input from orthopedics, commended with conservative treatment by pain control right arm shoulder in sling, immobilizer, Outpatient clinic follow-up with [facility] with Dr. Donovan in 1- 2 weeks. Patient will need reverse total shoulder arthroplasty, (2) Syncope: -Possible secondary to narcotic medication induced? 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: -Monitor prescription dose closely: Patient has slow metabolism of medications, which can lead to prolonged side effect in usual dose Avoid narcotic pain medications (4) CAD (coronary artery disease): Acute issue, patient denies of any chest pain dizzy spell or palpitation, lightheadedness prior to fall No angina symptoms dyspnea on exertion (5) Paroxysmal A-fib: -Rate controlled on beta-rahul, will continue -Pradaxa resumed as no plan for shoulder surgery during this admission (6) Diabetes insipidus: (7) Panhypopituitarism: -Continue chronic prednisone and DDAVP (8) Type 2 diabetes mellitus: -Diet controlled -Hgb A1c 7.3 07/2019 -Conservative NovoLog coverage ordered secondary to cytochrome P450 deficiency (9) Hypothyroidism: -TSH 5.94, normal free T4 0.8 -Continue home dose levothyroxine (10) CKD (chronic kidney disease) stage 3, GFR 30-59 ml/min: - baseline creat ~ 1.5 Renal function appears to be stable - continue to monitor, avoid nephrotoxic agents when able (11) Hx of Lyme disease: -Takes Diflucan as needed and tetracycline on a 3-day on3 of cycle (12) BRANDY (obstructive sleep apnea): -CPAP as per home settings (13) DVT prophylaxis: -SQ heparin CODE STATUS: Full code Disposition: Possible discharge home tomorrow if remains medically stable Subjective Denies of any dizzy spell lightheadedness, No syncope episode, Right shoulder pain has improved, patient continues to use sling Plan for outpatient follow-up with orthopedics, and possible total right shoulder arthroplasty in future Patient denies of any fever or chills, no cough, no chest pain or shortness of breath Review of Systems Review of Systems: All systems reviewed & are unremarkable except as noted in HPI & below Physical Exam Constitutional: WD/WN, vitals as above no acute distress ENMT: external ear and nose normal, oropharynx normal Neck: trachea midline, no thyromegaly Respiratory: normal respiratory effort, lungs clear to auscultation Cardiovascular: RRR, no murmur, no edema Musculoskeletal: Shoulder: + limited ROM (right shoulder secondary to pain and fracture/sling present); no deformity, no skin erythema and no ecchymosis Skin: no rashes, warm and dry Neurologic: normal touch/pain/proprioception Psychiatric: A+Ox3, euthymic affect Results & Data Vital Signs (Past 12 Hours) Vital Signs Temp Pulse Pulse Resp BP Pulse Ox 11/23/19 15:15 79 11/23/19 11:06 36.9 C 71 16 135/73 93 11/23/19 07:13 69 11/23/19 07:12 37.2 C 73 16 161/81 H 95 11/23/19 04:09 36.4 C L 63 18 144/81 H 96 (1) CAD (coronary artery disease) Coronary Disease-Associated Artery/Lesion type: [place] artery [place] vs. transplanted heart: [place] heart Associated angina: without angina Qualified Code(s): I25.10 - Atherosclerotic heart disease of [place] coronary artery without angina pectoris (2) Syncope Syncope type: unspecified Qualified Code(s): R55 - Syncope and collapse (3) Right humeral fracture Encounter type: initial encounter Humerus Location: proximal Fracture type: closed Fracture morphology: unspecified fracture morphology Qualified Code(s): S42.201A - Unspecified fracture of upper end of right humerus, initial encounter for closed fracture
[2019-11-23] MEDS ORDERED: TETRACYCLINE PO SCH ×3 (16:00→16:30)
--- NOTE | 2019-11-23 17:52 | Orthopedic Consultation ---
Date of Consultation November 23, 2019 Assessment & Plan (1) Fracture of proximal end of right humerus: He has a severely comminuted but minimally displaced right proximal humerus fracture. We extensively discussed the injury and potential treatment options. We discussed conservative treatment by letting this heal on its own. I think this would be reasonable, but may leave him with significantly decreased shoulder function. He has comminution and displacement of his greater and lesse r tuberosity, and I therefore do not think that his rotator cuff would function well. The avulsion fracture that has displaced to the level of the glenohumeral joint may also impinge with attempts at shoulder abduction. We therefore also discussed surgical intervention. With his osteopenia and severe comminution, as well as the fact that the articular surface appears to be a separate fracture f ragment, I think that an ORIF would not be a feasible or reliable treatment option. I would therefore recommend a reverse total shoulder arthroplasty as treatment for this. I explained the prosthesis in detail, and how it is generally used for rotator cuff tear arthropathy. This would be a very good treatment option for him, although I did advise him that the results of a reverse total shoulder are not as good for a fracture as they are as for rotator cuff tear arthropathy. He understands this. He indicated that he is leaning towards a reverse total shoulder, but he would like to discuss this with his first. He appears very comfortable, and I think he can be discharged. He can then follow-up in my clinic as an outpatient, and we can schedule a reverse total shoulder arthroplasty on a semielective basis if this is how he would like to proceed. Call [facility] at [phone] to schedule an appointment with Dr. Donovan in 1-2 weeks. History of Present Illness Reason for Consultation: Right proximal humerus fracture Requesting Physician: Dr. Billingsley Attending Physician: Vanessa Ramirez MD History of Present Illness I was asked to see Mr. Quesada as an upper extremity subspecialty evaluation for a right proximal humerus fracture. Mr. Quesada is a 74-year-old [id number] male who injured his right shoulder yesterday. He lost his balance as he was stepping down off of his porch and stumbled into the yard. He had a ground-level fall directly onto his right shoulder. He had a previous injury to his right wrist back in January, and has been wearing a removable wrist splint. Because of this injury, he did not extend his right arm to stop himself. He had immediate severe pain in the right shoulder, and inability to actively move the shoulder. He notes that he had a previous injury to his right wrist back in January. He is unsure the exact injury, but says that he strained a tendon. He is been treated by [facility] with therapy and injections. He feels like he has significantly improved over the past 2 months, and is nearly ready to discontinue the wrist splint. Allergies Allergy/AdvReac Type Severity Reaction Status Date / Time fluticasone [From Flonase] Allergy Unknown Flushing, Verified 01/22/19 05:50 ITCHY ibuprofen Allergy Unknown flushed, Verified 01/22/19 05:50 itchy Home Medications Home Medications Medication Instructions Recorded Confirmed Type Pradaxa 75 mg PO DAILY 12/20/18 11/22/19 History aspirin [Aspir-81] 81 mg PO HS 12/20/18 11/22/19 History atenolol 6.25 mg PO BID 12/20/18 11/22/19 History desmopressin 0.025 mg PO Q12 12/20/18 11/22/19 History levothyroxine 50 mcg PO HS 12/20/18 11/22/19 History olanzapine [Zyprexa] 1.25 mg PO HS 12/20/18 11/22/19 History olmesartan [Benicar] 40 mg PO BID 12/20/18 11/22/19 History albuterol sulfate 2 puff INHALATION QID PRN 01/22/19 11/22/19 History ergocalciferol (vitamin D2) 50,000 unit PO .[id number] 11/22/19 11/22/19 History [Vitamin D2] fluconazole 50 mg PO UD PRN 11/22/19 11/22/19 History ketoconazole 1 applic TOPICAL BID PRN 11/22/19 11/22/19 History multivitamin 1 tab PO Q OTHER DAY 11/22/19 11/22/19 History ondansetron 4 mg PO Q8H PRN 11/22/19 11/22/19 History prednisone 5 mg PO DAILY 11/22/19 11/22/19 History sodium chloride [[place] Nasal] 2 spray INTRANASAL .Q2HR PRN 11/22/19 11/22/19 History tetracycline 250 mg PO UD 11/22/19 11/22/19 History vitamin B complex 1 tab PO Q OTHER DAY 11/22/19 11/22/19 History Patient History Medical History Asthma AT NIGHT/RELATED TO CHRONIC RESPIRATORY INFECTION/EHRLICHTHIOSIS CAD (coronary artery disease) 05/2017: NSTEMI s/p HARLEY to LAD x2 CKD (chronic kidney disease) stage 3, GFR 30-59 ml/min 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 1A2 hypersensitivity -medications broken down by this mechanism work too quickly. (confirmed by DNA testing) History of myocardial infarction Hx of Lyme disease 1984 DX Hyperlipidemia Hypertension Hypothyroidism Nausea and vomiting after administration of anesthetic agent BRANDY (obstructive sleep apnea) Panhypopituitarism (Chronic) Paroxysmal A-fib Pituitary gland enlarged "INFLAMMATION" Type 2 diabetes mellitus Varicose veins of legs Surgical History H/O umbilical hernia repair History of colonoscopy History of sinus surgery Family History Father Family history of cancer of spinal cord Social History Preferred Language: Slovenian Communication Ability: Effective Children Librarian Required: No Beliefs That Will Affect Care: None marital status: Current Living Situation: Spouse Other Information That Helps Us Care for You: No Feels Safe at Home: Yes Safety Concerns: Feels Safe At This Time Smoking Status: Never smoker Do You Dip or Chew Tobacco: No ; Hx Alcohol Use: No Hx Substance Use: No Physical Exam Physical Exam: General: The patient appears well developed and well nourished. Awake, alert, and oriented x 3. Appropriate mood and affect. Normal gait and station. Normal coordination and balance. Skin: The skin over the right upper arm shows no open wounds. Inspection/Palpation: Visual inspection reveals no gross deformity of the upper arm. There is moderate swelling and tenderness to palpation over the proximal humerus. Compartments are soft and compressible. Range of Motion: There is limited range of motion of the upper arm due to pain. Stability: Ligamentous stability was not tested due to the known fracture. Strength: There is limited upper arm strength due to pain. Sensation: Motor and sensory function is intact in the median, ulnar, radial, and axillary nerve distributions. Vascular: Hand is warm and well perfused. Results & Data Vital Signs (Past 12 Hours) Vital Signs Temp Pulse Pulse Resp BP Pulse Ox 11/23/19 16:20 36.7 C 18 94 11/23/19 15:15 79 11/23/19 11:06 36.9 C 71 16 135/73 93 11/23/19 07:13 69 11/23/19 07:12 37.2 C 73 16 161/81 H 95 Diagnostic Findings X-rays and CT scan of the right shoulder were reviewed. They show a severely comminuted but minimally displaced fracture of the right proximal humerus. It appears that the articular surface is a completely separate fracture fragment. There are numerous comminuted fracture fragments of the greater and lesser tuberosity. There is an avulsion fracture of what appears to be the greater tuberosity that is displaced proximally to the level of the glenohumeral joint. His bones appear generally osteopenic. He does appear to have some mild pre- existing arthritis of the glenohumeral joint. (1) Fracture of proximal end of right humerus Encounter type: initial encounter Fracture type: closed Fracture alignment: displaced Fracture morphology: other fracture Qualified Code(s): S42.291A - Other displaced fracture of upper end of right humerus, initial encounter for closed fracture
[2019-11-23] MEDS: ASPIRIN 81 MG ECTAB PO SCH (20:09)
[2019-11-23] MEDS: LEVOTHYROXINE SODIUM 25 MCG TABLET PO SCH (20:10)
[2019-11-23] MEDS: OLANZAPINE 2.5 MG TAB PO SCH (20:11)
[2019-11-24] MEDS: HEPARIN SOD 5,000 UNIT/0.5 ML VIAL SQ SCH ×2 (05:45→14:30)
[2019-11-24] MEDS: ATENOLOL 25 MG TABLET PO SCH (08:19)
[2019-11-24] MEDS: DESMOPRESSIN ACETATE 0.1 MG TAB PO SCH (08:20)
[2019-11-24] MEDS: predniSONE 5 MG TAB PO SCH (08:21)
[2019-11-24] MEDS: OLMESARTAN MEDOXOMIL 40 MG TAB PO SCH (08:21)
[2019-11-24] MEDS: POLYETHYLENE (MIRALAX) 17 GM PACK PO SCH (08:21)
[2019-11-24] MEDS: INSULIN ASPART 100 UNITS/ML 3 ML PEN SC SCH ×2 (08:23→12:45)
[2019-11-24] MEDS ORDERED: SODIUM CHLORIDE 0.9% 1000ML 250 ML IV ONE (10:04)
[2019-11-24] MEDS: SODIUM CHLORIDE 0.9% 1000ML 1,000 ML IV SCH (10:32)
[2019-11-24 10:50] LABS: BUN Creatinine Ratio 14.5 (10-20); Calcium 8.2 mg/dl (8.5-10.1); Creatinine Clr Calc Pharmacy 57.5 ml/min; Est GFR (African American) 59.4; Est GFR (Non-African American) 51.3
--- NOTE | 2019-11-24 14:11 | Discharge Summary ---
Date of Service November 24, 2019 Admission HPI Per Admitting Provider 74-year-old male who presents the ED for evaluation of right arm pain after falling down the steps. Patient reports he tripped over the second to last stair and fell to the ground onto his right side. Reports he had immediate pain in his right arm. He then presented to the ED for further evaluation. With a fall, patient denies any associated lightheadedness, dizziness, diaphoresis, syncopal event. No preceding chest pain or shortness of breath. In the ED, patient was found to have a right humerus fracture. Patient is also noted to have history of cytochrome P4 52 D6 enzyme deficiency and does not metabolize narcotics well. He was given 2 doses of Vicodin in the ED. While at CT scan, patient had a brief syncopal event while seated in the wheelchair. When he was brought back to the room, patient was hypotensive. He received IVF with improvement in blood pressure. Patient reports he otherwise has been feeling well recently. No fevers or chills. Denies abdominal pain, nausea, vomiting, diarrhea. No urinary symptoms. At the time of our exam, patient is resting in bed, complains of some nausea however in no acute distress. Principal Diagnosis Right upper arm fracture, fall Discharge Exam Constitutional WD/WN, vitals as above no acute distress ENMT external ear and nose normal, oropharynx normal Neck trachea midline, no thyromegaly Respiratory normal respiratory effort, lungs clear to auscultation Cardiovascular RRR, no murmur, no edema Musculoskeletal Shoulder: + limited ROM (right shoulder secondary to pain and fracture/sling present); no deformity, no skin erythema and no ecchymosis Skin no rashes, warm and dry Neurologic normal touch/pain/proprioception Psychiatric A+Ox3, euthymic affect Discharge Data Allergies Allergy/AdvReac Type Severity Reaction Status Date / Time fluticasone [From Flonase] Allergy Unknown Flushing, Verified 01/22/19 05:50 ITCHY ibuprofen Allergy Unknown flushed, Verified 01/22/19 05:50 itchy Consultations 11/22/19 19:46 Consult Case Management - Discharge Planning Routine Consult Orthopedic Surgery Routine Ordered Studies 11/22/19 17:22 CT shoulder RT wo con Stat Hospital Course (1) Right humeral fracture: Admitted with right shoulder pain after sustaining a fall: X-ray of right shoulder: Shows severely comminuted but minimally displaced right proximal humerus fracture. Patient lost his balance as he was stepping down off of his porch and stumbled into the yard. He had a ground-level fall directly onto his right shoulder. x-rays and CT scan of the right shoulder :show a severely comminuted but minimally displaced fracture of the right proximal humerus. It appears that the articular surface is a completely separate fracture fragment. There are numerous comminuted fracture fragments of the greater and lesser tuberosity. There is an avulsion fracture of what appears to be the greater tuberosity that is displaced proximally to the level of the glenohumeral joint. His bones appear generally osteopenic. He does appear to have some mild pre- existing arthritis of the glenohumeral joint. Appreciate input from orthopedics, commended with conservative treatment by pain control right arm shoulder in sling, immobilizer, Outpatient clinic follow-up with [facility] with Dr. Donovan in 1- 2 weeks. Patient will need reverse total shoulder arthroplasty, medically stable to be discharged home today with out pts Ortho follow up (2) Syncope: -Possible secondary to narcotic medication induced? 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: -Monitor prescription dose closely: Patient has slow metabolism of medications, which can lead to prolonged side effect in usual dose Avoid narcotic pain medications (4) CAD (coronary artery disease): Acute issue, patient denies of any chest pain dizzy spell or palpitation, lightheadedness prior to fall No angina symptoms dyspnea on exertion (5) Paroxysmal A-fib: -Rate controlled on beta-rahul, will continue -Pradaxa resumed as no plan for shoulder surgery during this admission (6) Diabetes insipidus: (7) Panhypopituitarism: -Continue chronic prednisone and DDAVP (8) Type 2 diabetes mellitus: -Diet controlled -Hgb A1c 7.3 07/2019 -Conservative NovoLog coverage ordered secondary to cytochrome P450 deficiency (9) Hypothyroidism: -TSH 5.94, normal free T4 0.8 -Continue home dose levothyroxine (10) CKD (chronic kidney disease) stage 3, GFR 30-59 ml/min: - baseline creat ~ 1.5 Renal function appears to be stable - continue to monitor, avoid nephrotoxic agents when able (11) Hx of Lyme disease: -Takes Diflucan as needed and tetracycline on a 3-day on of cycle (12) BRANDY (obstructive sleep apnea): -CPAP as per home settings (13) DVT prophylaxis: -SQ heparin CODE STATUS: Full code Disposition: stable to be discharged home today Total Time Total Time Spent Total Time Spent (In Minutes): 35 mins Total Time Includes: Examination of the Patient, Discharge Planning and Medication Reconciliation Discharge Plan Discharge Items Patient Disposition: Home - Self-Care Reason For Visit: RIGHT HUMERUS FRACTURE,SYNCOPE Discharge Diagnosis: Right upper arm fracture, fall Activity: As commented below Activity Comment: Keep right arm immobilized, follow-up with orthopedics in 1 week Driving/Machine Use: Do not drive, complete immobilization of right arm and shoulder until seen by orthopedics Weightbearing: Right non-weightbearing Weightbearing Comment: Right arm nonweightbearing, Non-emergency contact: Primary Care Provider Call non-emergency contact if: you have any medication questions Follow-up/Referrals: Bravo Rosenbaum MD [Primary Care Provider] - 11/27/19 1:40 pm (julio Heredia ) Remigio Donovan M.D. [Physician] - (Follow-up with orthopedics in 1-2 weeks, please call to schedule an appointment) Diet: Heart Healthy Addtl Attending Provider Instructions: Can take Tylenol as needed for pain and discomfort [facility] for right total shoulder joint replacement/surgery Keep right arm in sling/immobilizer Pending Studies at Discharge: No Stand-Alone Forms: My [employer], Smoking Cessation Medications and DC Order Prescriptions: Continued olanzapine [Zyprexa] 2.5 mg Tablet 1.25 mg PO HS RF: 0 aspirin [Aspir-81] 81 mg Tablet,Delayed Release (Dr/Ec) 81 mg PO HS RF: 0 desmopressin 0.1 mg Tablet 0.025 mg PO Q12 RF: 0 olmesartan [Benicar] 40 mg Tablet 40 mg PO BID RF: 0 levothyroxine 50 mcg Capsule 50 mcg PO HS RF: 0 Pradaxa 75 mg Capsule 75 mg PO DAILY RF: 0 atenolol 25 mg Tablet 6.25 mg PO BID RF: 0 albuterol sulfate 90 mcg/actuation Hfa Aerosol Inhaler 2 puff Inhalation QID PRN (Reason: Cough) RF: 0 multivitamin Tablet 1 tab PO Q OTHER DAY RF: 0 prednisone 5 mg Tablet 5 mg PO DAILY RF: 0 tetracycline 250 mg capsule 250 mg PO UD RF: 0 vitamin B complex Tablet 1 tab PO Q OTHER DAY RF: 0 ergocalciferol (vitamin D2) [Vitamin D2] 50,000 unit capsule 50,000 unit PO .[id number] RF: 0 ketoconazole 2 % cream 1 applic TOPICAL BID PRN (Reason: groin) RF: 0 ondansetron 4 mg Tablet,Disintegrating 4 mg PO Q8H PRN (Reason: Nausea) RF: 0 sodium chloride [[place] Nasal] 0.65 % Aerosol,[place] 2 spray INTRANASAL .Q2HR PRN (Reason: Nasal Congestion) RF: 0 fluconazole 50 mg tablet 50 mg PO UD PRN (Reason: ..) RF: 0 Discharge Orders: Discharge Order (Routine); Ordered 11/24/19 Ordered By: Vanessa Ramirez Admission Data Admit Date/Time: 11/24/19 10:01 Attending Provider: Vanessa Ramirez Admit Provider: Jesse Miranda Primary Care Provider: Bravo Rosenbaum Other Providers: Valeriy Fulton
[2019-11-24] MEDS ORDERED: DESTROY THIS MEDICATION ONE (15:15)
== END 2019-11-24 15:26 | disposition home or self-care (01) ==
LOC: 2N 14:26 → ED 14:26 → SUATTDRO 18:18 → 2N 18:58

== ENCOUNTER 2019-12-13 05:05 | Inpatient (IN) ==
--- NOTE | 2019-12-06 09:36 | PAT Medication Instructions ---
Medication Instructions Date of Service December 06, 2019 Home Medications Pradaxa 75 mg PO DAILY 12/20/18 [History Confirmed 12/04/19] aspirin [Aspir-81] 81 mg PO HS 12/20/18 [History Confirmed 12/04/19] atenolol 6.25 mg PO BID 12/20/18 [History Confirmed 12/04/19] desmopressin 0.025 mg PO Q12 12/20/18 [History Confirmed 12/04/19] levothyroxine 50 mcg PO HS 12/20/18 [History Confirmed 12/04/19] olanzapine [Zyprexa] 1.25 mg PO HS 12/20/18 [History Confirmed 12/04/19] olmesartan [Benicar] 40 mg PO BID 12/20/18 [History Confirmed 12/04/19] albuterol sulfate 2 puff INHALATION QID PRN 01/22/19 [History Confirmed 12/04/19] ergocalciferol (vitamin D2) [Vitamin D2] 50,000 unit PO .[id number] fluconazole 50 mg PO UD PRN 11/22/19 [History Confirmed 12/04/19] ketoconazole 1 applic TOPICAL BID PRN 11/22/19 [History Confirmed 12/04/19] multivitamin 1 tab PO Q OTHER DAY 11/22/19 [History Confirmed 12/04/19] ondansetron 4 mg PO Q8H PRN 11/22/19 [History Confirmed 12/04/19] prednisone 5 mg PO DAILY 11/22/19 [History Confirmed 12/04/19] sodium chloride [[place] Nasal] 2 spray INTRANASAL .Q2HR PRN tetracycline 250 mg PO UD 11/22/19 [History Confirmed 12/04/19] vitamin B complex 1 tab PO Q OTHER DAY 11/22/19 [History Confirmed 12/04/19] cefdinir 300 mg PO UD 12/04/19 [History Confirmed 12/04/19] Continue as directed fluconazole 50 mg PO UD PRN (if needed) tetracycline 250 mg PO UD 11/22/19 [History Confirmed 12/04/19] cefdinir 300 mg PO UD 12/04/19 [History Confirmed 12/04/19] ASK your prescriber and surgeon Pradaxa 75 mg PO DAILY 12/20/18 [History Confirmed 12/04/19] aspirin [Aspir-81] 81 mg PO HS 12/20/18 [History Confirmed 12/04/19] desmopressin 0.025 mg PO Q12 12/20/18 [History Confirmed 12/04/19] STOP taking 24 hours before surgery ketoconazole 1 applic TOPICAL BID PRN 11/22/19 [History Confirmed 12/04/19] DO NOT take the morning of surgery olmesartan [Benicar] 40 mg PO BID 12/20/18 [History Confirmed 12/04/19] ergocalciferol (vitamin D2) [Vitamin D2] 50,000 unit PO .[id number] multivitamin 1 tab PO Q OTHER DAY 11/22/19 [History Confirmed 12/04/19] sodium chloride [[place] Nasal] 2 spray INTRANASAL .Q2HR PRN vitamin B complex 1 tab PO Q OTHER DAY 11/22/19 [History Confirmed 12/04/19] Take morning of surgery With a small sip of water, OTHERWISE NOTHING TO EAT OR DRINK AFTER MIDNIGHT: atenolol 6.25 mg PO BID 12/20/18 [History Confirmed 12/04/19] albuterol sulfate 2 puff INHALATION QID PRN (use if needed; please bring with you to hospital day of surgery if possible) ondansetron 4 mg PO Q8H PRN (if needed) prednisone 5 mg PO DAILY 11/22/19 [History Confirmed 12/04/19] Take evening before surgery atenolol 6.25 mg PO BID 12/20/18 [History Confirmed 12/04/19] levothyroxine 50 mcg PO HS 12/20/18 [History Confirmed 12/04/19] olanzapine [Zyprexa] 1.25 mg PO HS 12/20/18 [History Confirmed 12/04/19] olmesartan [Benicar] 40 mg PO BID 12/20/18 [History Confirmed 12/04/19] albuterol sulfate 2 puff INHALATION QID PRN (if needed) ondansetron 4 mg PO Q8H PRN (if needed) sodium chloride [[place] Nasal] 2 spray INTRANASAL .Q2HR PRN (if needed) Other Notes If you have any questions please call us at [phone] or [phone] or [phone] or [phone]
--- NOTE | 2019-12-07 09:30 | Anesthesiology Consultation ---
Date of Service December 07, 2019 Assessment & Plan (1) Encounter for pre-operative examination: - Awaiting surgeon-ordered PCP clearance scheduled 11/2019 (Dr. Rosenbaum/[facility]). 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 1A2 hypersensitivity -medications broken down by this mechanism work too quickly. (confirmed by DNA testing). Multiple family members with same gene deletion/anesthesia reactions. Patient s/p umbilical hernia repair: 01/22/19: LMA#5 at [facility] without issue. 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 Anesthetics (Lidocaine). Antiemetics/Prokinetinics (Zofran, Reglan). Antihistamines (Promethazine, Chlorpheniramine). Cardiovascular (Clonidine, Diltiazam, S metoprolol, atenolol, propranolol). MISC (Dextromethoraphan, Amphetamine). NAT2 partial deletion -- Arylamine N-acetyl transamines, increased susceptibility to hydralazine, Procaine amides, some sulfa drugs. 1A2 hypersensitivity -- Amitriptyline, Tylenol, Lidocaine, Warfarin, Methadone. Additional possible meds affected per review done by Dr. Mar: atenolol, inderal Case reviewed with Dr. Mar, he feels that at anesthesiologist discretion AM DOS regarding shoulder block - Cardiology: 09/28/19: "feeling well from a cardiovascular perspective." Initially prescribed Pradaxa BID but patient once takes daily (refuses higher doses at this time/cardiology aware and discussed stroke risk associated with a. fib). F/U 6 months recommended. - Med instructions: ASA okay to continued perioperatively. Pradaxa instructions per surgeon/prescriber. - Check BSG AM DOS Chart Review Chart Review: Patient seen in Pre Admission Testing Teaching & Discussion Pre-Anesthesia Teaching/Discussion Notes: Instructed NPO after midnight before surgery,except medications with 15 cc of water. Medication instructions provided according to the PAT guidelines. History Surgery Operation Date: 12/13/19 13:10 Proposed Procedures p Right Reverse Total Shoulder Arthroplasty - Remigio Donovan M.D. Height/Weight Height: 5 ft 10 in Weight: 98.2 kg Allergies Allergy/AdvReac Type Severity Reaction Status Date / Time fluticasone [From Flonase] Allergy Unknown Flushing, Verified 12/07/19 09:29 pruritus ibuprofen Allergy Unknown Flushing, Verified 12/07/19 09:29 pruritus Medications Home Medications Medication Instructions Recorded Confirmed Last Taken Pradaxa 75 mg PO DAILY 12/20/18 12/04/19 01/18/19 19:30 aspirin [Aspir-81] 81 mg PO HS 12/20/18 12/04/19 01/21/19 19:00 atenolol 6.25 mg PO BID 12/20/18 12/04/19 01/21/19 16:00 desmopressin 0.025 mg PO Q12 12/20/18 12/04/19 01/21/19 23:55 levothyroxine 50 mcg PO HS 12/20/18 12/04/19 01/21/19 19:30 olanzapine [Zyprexa] 1.25 mg PO HS 12/20/18 12/04/19 01/20/19 00:00 olmesartan [Benicar] 40 mg PO BID 12/20/18 12/04/19 01/21/19 12:00 albuterol sulfate 2 puff INHALATION QID PRN 01/22/19 12/04/19 01/22/19 02:00 ergocalciferol (vitamin D2) 50,000 unit PO .[id number] 11/22/19 12/04/19 11/16/19 [Vitamin D2] fluconazole 50 mg PO UD PRN 11/22/19 12/04/19 Unknown ketoconazole 1 applic TOPICAL BID PRN 11/22/19 12/04/19 Unknown multivitamin 1 tab PO Q OTHER DAY 11/22/19 12/04/19 Unknown ondansetron 4 mg PO Q8H PRN 11/22/19 12/04/19 Unknown prednisone 5 mg PO DAILY 11/22/19 12/04/19 Unknown sodium chloride [[place] Nasal] 2 spray INTRANASAL .Q2HR PRN 11/22/19 12/04/19 Unknown tetracycline 250 mg PO UD 11/22/19 12/04/19 Unknown vitamin B complex 1 tab PO Q OTHER DAY 11/22/19 12/04/19 Unknown cefdinir 300 mg PO UD 12/04/19 12/04/19 Unknown Past Medical History Medical History Asthma stable CAD (coronary artery disease) 05/2017: NSTEMI s/p HARLEY to LAD x2 CKD (chronic kidney disease) stage 3, GFR 30-59 ml/min 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 Gastroparesis History of myocardial infarction Hx of Lyme disease "chronic lyme" - on chronic abx/diagnosis Hyperlipidemia Hypertension Hypothyroidism Obesity BRANDY (obstructive sleep apnea) CPAP Panhypopituitarism (Chronic) Paroxysmal A-fib on Pradaxa Pituitary gland enlarged Type 2 diabetes mellitus Varicose veins of legs Exercise / Class Metabolic Activity III < 4 Walking/Shop/Light housework Past Family History Family History Father Family history of cancer of spinal cord Past Surgical History Surgical History H/O umbilical hernia repair 01/22/19: LMA#5 at [facility] History of cardiac catheterization 2017- HARLEY x 2 to LAD History of colonoscopy History of sinus surgery Past Anesthesia History Other *Post-op urinary retention x 1 episode. No issue with most recent surgery/ anesthesia.* "certain anesthesia meds do nothing.. 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 1A2 hypersensitivity -medications broken down by this mechanism work too quickly. (confirmed by DNA testing). Multiple family members with same gene deletion/anesthesia reactions. Social History Smoking Status: Never smoker Do You Dip or Chew Tobacco: No Hx Alcohol Use: No Hx Substance Use: No substance use type: does not use Review of Systems Patient denies chest pain, shortness of breath, cough, wheezing, palpitations. Physical Exam Vital Signs VITALS BP 104/66 P 64 TEMP 98.4 SP02 94%RA RESP 18 PHYSICAL Full neck and c-spine range of motion. Full TMJ range of motion. TMD 3 finger breaths Mallampati Score 3 Dentition: intact, several crowns, implant (all on molars) Lungs: clear throughout to auscultation Cardiac: regular rate and rhythm, no murmurs noted Spine: normal Carotid arteries: negative bruit Extremities: right arm in sling Testing Laboratory Results PT 10.9 Seconds (9.0-12.0) 12/07/19 10:03 INR 1.1 (0.9-1.1) 12/07/19 10:03 APTT 28.0 Seconds (21.0-31.0) 12/07/19 10:03 Hemoglobin A1c 7.6 % (4.5-5.6) H 12/07/19 10:03 Urine Color Yellow 12/07/19 10:03 Urine Appearance Clear (Clear) 12/07/19 10:03 Urine pH 5.0 (4.5-7.5) 12/07/19 10:03 Ur Specific [place] 1.017 (1.000-1.030) 12/07/19 10:03 Urine Protein Negative (Negative) 12/07/19 10:03 Urine Glucose (UA) Trace (Negative) H 12/07/19 10:03 Urine Ketones Negative (Negative) 12/07/19 10:03 Urine Nitrite Negative (Negative) 12/07/19 10:03 Ur Leukocyte Esterase Negative (Negative) 12/07/19 10:03 Blood Type AB Negative 12/07/19 10:03 Antibody Screen NEGATIVE 12/07/19 10:03 *Surgeon made aware of elevated hgba1c* 11/24/19 WBC 10.53 H/H 14.0/43.7 PLATELETS 201 SODIUM 143 POTASSIUM 4.0 CHLORIDE 112 CO2 27 BUN 20 CREATININE 1.36 GLUCOSE 153 11/22/19 T. BILI 0.4 AST 22 ALKP 89 Electrocardiogram Date: 11/22/19 SR with occasional PVC's at 61bpm. NS TWA. Chest X-Ray Date: 12/21/18 Lung volumes are at the upper limits of normal. There is no pneumothorax or pleural effusion. There is no consolidation or evidence for pulmonary edema. The appearance of the chest is unchanged. Cardiomediastinal silhouette is stable. Linear left basilar opacity suggests atelectasis. IMPRESSION: No acute cardiopulmonary findings. Echocardiogram Date: 11/23/19 EF 65-60%. Mild cLVH. No RWMA. Grade I DD. Poorly visualized valvular structure without significant stenosis or regurgitation by doppler. Stress Test Date: 07/17/18 Type: exercise Resting EF: 60-64% The stress echo is negative for inducible ischemia. Stress EKG response showed no evidence of ischemia. Occasional PVCs were noted with stress. The stress test was terminated due to target heart rate was achieved. Exercise capacity is above average. Reached 91% of MPHR and 10.1 METs. Left atrium is normal sized. Left ventricular diastolic function is normal. Mild aortic valve regurgitation is present. Cardiac Catheterization Date: 06/23/17 Severe CAD with 75% narrowing of the pLAD and 90% mid LAD as a culprit lesion. Patient had subsequent HARLEY x 2 to LAD*
[2019-12-07 11:06] LABS: Appearance Urine Clear (Clear); Bilirubin Urine Negative (Negative); Blood Urine Negative (Negative); Color Urine Yellow; Glucose Urine UA Trace (Negative); Ketones Urine Negative (Negative); Leukocyte Esterase Urine Negative (Negative); Nitrite Urine Negative (Negative); Protein Urine Negative (Negative); Specific Gravity Urine 1.017 (1.000-1.030); Urobilinogen Urine Negative (Negative)
[2019-12-07 11:16] LABS: Estimated Average Glucose 171 mg/dl; Hemoglobin A1C 7.6 % (4.5-5.6)
[2019-12-07 11:25] LABS: INR 1.1 (0.9-1.1); Prothrombin Time 10.9 Seconds (9.0-12.0)
--- NOTE | 2019-12-12 16:35 | History & Physical Report ---
Date of Service December 12, 2019 Assessment & Plan (1) Closed fracture of right proximal humerus: He again has a severely comminuted but minimally displaced right proximal humerus fracture. We again discussed different treatment options including conservative management versus surgical intervention. With the severity of the comminution and displacement, I do not think that an ORIF would be a feasible or reliable treatment option. I think a reverse total shoulder arthroplasty would be the best surgical option for him, but I also think it would be reasonable to let this heal and see how he functions. We discussed this at length with both the patient and his . They elected to proceed with a reverse total shoulder arthroplasty. He recently had an uncle that had a reverse total shoulder for what sounds like cuff tear arthropathy, and a repeatedly warned him that the results are not quite as good for fracture rather than the shoulder arthritis. They understand this and wished to proceed. Risks, benefits, and alternatives of surgery were explained in detail. The surgical procedure, as well as postoperative recovery and rehabilitation, was also explained in detail. Risks include bleeding; infection; damage to surrounding structures such as nerves, blood vessels, and tendons that run in the area; persistent pain or stiffness; hardware failure; dislocation; brachial plexus palsy; blood clots; or need for further surgery. The patient understands all of this and wishes to proceed with surgery. Preoperative workup was completed today, and informed consent was obtained. Encounter type: subsequent encounter Fracture alignment: displaced Fracture healing: with malunion Present on Admission?: Yes History of Present Illness Chief Complaint: Right shoulder pain Primary Care Provider: Bravo Rosenbaum MD Mr. Quesada is a 74-year-old [id number] male who returns today for follow-up of his right proximal humerus fracture sustained after a ground-level fall on November 22. I saw him in the hospital as a consultation for this. This was a severely comminuted but minimally displaced proximal humerus fracture with displacement of the greater and lesser tuberosity. He has an avulsion fracture fragment from the tuberosity that is at the level of the glenohumeral joint. We discussed nonoperative treatment, ORIF, and a reverse total shoulder arthroplasty as treatment options for this. He was comfortable and therefore discharged from the hospital, and returns today for further discussion of this problem. Allergies Allergy/AdvReac Type Severity Reaction Status Date / Time fluticasone [From Flonase] Allergy Unknown Flushing, Verified 12/07/19 09:29 pruritus ibuprofen Allergy Unknown Flushing, Verified 12/07/19 09:29 pruritus Home Medications Home Medications Medication Instructions Recorded Confirmed Type Pradaxa 75 mg PO DAILY 12/20/18 12/04/19 History aspirin [Aspir-81] 81 mg PO HS 12/20/18 12/04/19 History atenolol 6.25 mg PO BID 12/20/18 12/04/19 History desmopressin 0.025 mg PO Q12 12/20/18 12/04/19 History levothyroxine 50 mcg PO HS 12/20/18 12/04/19 History olanzapine [Zyprexa] 1.25 mg PO HS 12/20/18 12/04/19 History olmesartan [Benicar] 40 mg PO BID 12/20/18 12/04/19 History albuterol sulfate 2 puff INHALATION QID PRN 01/22/19 12/04/19 History ergocalciferol (vitamin D2) 50,000 unit PO .[id number] 11/22/19 12/04/19 History [Vitamin D2] fluconazole 50 mg PO UD PRN 11/22/19 12/04/19 History ketoconazole 1 applic TOPICAL BID PRN 11/22/19 12/04/19 History multivitamin 1 tab PO Q OTHER DAY 11/22/19 12/04/19 History ondansetron 4 mg PO Q8H PRN 11/22/19 12/04/19 History prednisone 5 mg PO DAILY 11/22/19 12/04/19 History sodium chloride [[place] Nasal] 2 spray INTRANASAL .Q2HR PRN 11/22/19 12/04/19 History tetracycline 250 mg PO UD 11/22/19 12/04/19 History vitamin B complex 1 tab PO Q OTHER DAY 11/22/19 12/04/19 History cefdinir 300 mg PO UD 12/04/19 12/04/19 History Past Med/Surg History Medical History Asthma stable CAD (coronary artery disease) 05/2017: NSTEMI s/p HARLEY to LAD x2 CKD (chronic kidney disease) stage 3, GFR 30-59 ml/min 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 Gastroparesis History of myocardial infarction Hx of Lyme disease "chronic lyme" - on chronic abx/diagnosis Hyperlipidemia Hypertension Hypothyroidism Obesity BRANDY (obstructive sleep apnea) CPAP Panhypopituitarism (Chronic) Paroxysmal A-fib on Pradaxa Pituitary gland enlarged Type 2 diabetes mellitus Varicose veins of legs Surgical History H/O umbilical hernia repair 01/22/19: LMA#5 at [facility] History of cardiac catheterization 2017- HARLEY x 2 to LAD History of colonoscopy History of sinus surgery Family History Father Family history of cancer of spinal cord Social History Preferred Language: Setswana Communication Ability: Effective Child Nutrition Director Required: No Beliefs That Will Affect Care: None marital status: Current Living Situation: Spouse Other Information That Helps Us Care for You: No Feels Safe at Home: Yes Safety Concerns: Feels Safe At This Time Smoking Status: Never smoker Do You Dip or Chew Tobacco: No ; Hx Alcohol Use: No Hx Substance Use: No Physical Exam Physical Exam: General: The patient appears well developed and well nourished. Awake, alert, and oriented x 3. Appropriate mood and affect. Normal gait and station. Normal coordination and balance. Skin: The skin over the right upper arm shows no open wounds. Inspection/Palpation: Visual inspection reveals no gross deformity of the upper arm. There is moderate swelling and tenderness to palpation over the humerus. Compartments are soft and compressible. Range of Motion: There is limited range of motion of the upper arm due to pain. Stability: Ligamentous stability was not tested due to the known fracture. Strength: There is limited upper arm strength due to pain. Sensation: Motor and sensory function is intact in the median, ulnar, radial, and axillary nerve distributions. Vascular: Hand is warm and well perfused. Results & Data Diagnostic Findings Previous right shoulder x-rays and CT scan were reviewed. They again show a severely comminuted but minimally displaced fracture of the right proximal humerus. It appears that the articular surface is a completely separate fracture fragment. There are numerous comminuted fracture fragments of the greater and lesser tuberosity. There is an avulsion fracture of what appears to be the greater tuberosity that is displaced proximally to the level of the glenohumeral joint. His bones appear generally osteopenic. He does appear to have some mild pre-existing arthritis of the glenohumeral joint.
[2019-12-13] MEDS ORDERED: ACETAMINOPHEN 500 MG TAB PO SCH ×2 (06:00→14:00)
[2019-12-13] MEDS ORDERED: CeleBREX 200 MG CAP PO SCH (06:00)
[2019-12-13] MEDS ORDERED: dexAMETHasone 4 MG TAB PO SCH (06:00)
[2019-12-13] MEDS ORDERED: FAMOTIDINE 20 MG TAB PO SCH (06:00)
[2019-12-13] MEDS ORDERED: TRANEXAMIC ACID 1,000 MG **IV Pre-op IV SCH (06:00)
[2019-12-13] MEDS ORDERED: LR 15ML/HR IV SCH (06:00)
[2019-12-13] MEDS ORDERED: GABAPENTIN 300 MG CAP PO SCH (06:00)
[2019-12-13] MEDS ORDERED: CEFAZOLIN 2000MG 2,000 MG/15 ML SYR IV SCH ×2 (06:00)
[2019-12-13] MEDS ORDERED: DEXAMETHASONE SOD INJ 4 MG/ML VIAL ONE ×3 (06:14→08:17)
[2019-12-13] MEDS ORDERED: ROPIVACAINE 0.5% 5 MG/ML 30 ML VIAL ONE (06:14)
[2019-12-13] MEDS ORDERED: MIDAZOLAM HCL 1 MG/ML 2ML VIAL ONE (06:36)
[2019-12-13] MEDS ORDERED: fentaNYL citrate 100 MCG/2 ML VIAL ONE (06:36)
--- NOTE | 2019-12-13 07:01 | History & Physical Bridge Note ---
Date of Service December 13, 2019 History & Physical Bridge Note I have examined the patient, reviewed the History & Physical and in the interval since the performance of the History & Physical I have noted the following changes of clinical significance: no changes noted
[2019-12-13] MEDS ORDERED: PROPOFOL IV EMULSION 10 MG/ML 20 ML VIAL IV ONE (07:04)
[2019-12-13] MEDS ORDERED: ROCURONIUM BROMIDE 10 MG/ML 5 ML VIAL ONE (08:17)
[2019-12-13] MEDS ORDERED: PHENYLEPHRINE HCL 10 MG/ML VIAL ONE ×2 (08:18→11:20)
[2019-12-13] MEDS ORDERED: PHENYLEPHRINE 100MCG/ML 5ML SYR ONE (08:18)
[2019-12-13] MEDS ORDERED: ePHEDrine sulfate 50 MG/ML SYR ONE (08:35)
--- NOTE | 2019-12-13 10:46 | Post Operative Brief Note ---
Immediate Post Op Note v1 Date of Surgery December 13, 2019 Pre & Post Diagnosis Operation Date: 12/13/19 07:15 Pre-Op Diagnosis: Right Comminuted Proximal Humerus Fracture Post-Op Diagnosis: Right Comminuted Proximal Humerus Fracture I identified the patient and participated in the time-out.: Yes Procedure Operation Date: 12/13/19 07:15 Actual Procedures Right Reverse Total Shoulder Arthroplasty - Remigio Donovan M.D. Surgeon Remigio Donovan Geophysical Observer Minesh Macedo PA-C Estimated Blood Loss 100 Findings Consistent with Post-Op Diagnosis
--- NOTE | 2019-12-13 11:46 | Operative Report ---
Post Operative Report Pre & Post Diagnosis Operation Date: 12/13/19 07:15 Pre-Op Diagnosis: Right Comminuted Proximal Humerus Fracture Post-Op Diagnosis: Right Comminuted Proximal Humerus Fracture I identified the patient and participated in the time-out.: Yes Procedure Operation Date: 12/13/19 07:15 Actual Procedures Right Cemented Reverse Total Shoulder Arthroplasty (14971) with Biceps Tenodesis (06266) - Remigio Donovan M.D. Surgeon Remigio Donovan Motor Assembly Supervisor Minesh Macedo PA-C Estimated Blood Loss 100 Findings Consistent with Post-Op Diagnosis Specimens None Drains None Anesthesia Type General Regional Complications none Disposition Disposition: Recovery Room Indications Mr. Quesada is a 74-year-old male who sustained a severe fracture to his right proximal humerus about 3 weeks ago. History, clinical exam, and imaging were consistent with the above diagnosis. Risks, benefits, and alternatives of surgery were explained in detail. The patient understood all this and wished to proceed. Description of Procedure Components Implanted: Tornier Reverse Total Shoulder implants Perform glenoid baseplate: 29mm with 6.5mm central screw and 5.0mm peripheral screws Glenosphere: 36mm, 3mm eccentric offset Aequalis cemented reverse fracture humeral stem: [id number] Humeral spacer: +9mm Polyethylene insert: 36mm, +12mm thickness Patient was identified in the preoperative holding area. Operative extremity was marked. Regional blockade was given by the Anesthesia Staff. Patient was then brought back to the operating room, and general anesthesia was induced without complication. Appropriate weight-based dose of Ancef was infused intravenously for antibiotic prophylaxis. The patient was then placed in the be achchair position. Right arm was then prepped and draped in a standard sterile fashion using Chlorhexidine prep. A standard deltopectoral incision was made through the skin and subcutaneous tissue. The cephalic vein was identified and retracted medially. Small branches to the deltoid were coagulated as necessary. The clavipectoral fascia was then incised and the subdeltoid space was opened. The biceps tendon was identified within the bicipital groove and tenodesed at the superior border of the pectoralis tendon with #2 FiberWire sutures. The biceps tendon was then divided proximal to the tenodesis site and the rotator interval was opened. The proximal portion of the biceps tendon was excised. The comminuted proximal humerus fracture was then identified. The infraspinatus and teres minor attached to the greater tuberosity fragment, as well as the subscapularis attached to the lesser tuberosity fragment were identified and mobilized. The remnants of the supraspinatus were excised back to the level of the glenoid rim. The humeral head articular fragments were excised. Bone graft was obtained from the humeral head fragment for later placement into the humeral stem for optimal healing of the tuberosity fracture fragments. I then placed two #5 FiberWire sutures into each of the greater and lesser tuberosity fracture fragments for mobilization, retraction, and later fixation back to the humeral stem. The intramedullary canal of the humerus was then opened with a canal finder. The humeral canal was then sequentially reamed until adequate cortical chatter was attained. Two drill holes were then placed into the lateral cortex of the humerus, and 2 additional #5 FiberWire sutures were placed through these holes, and again for later fixation of the tuberosity fragments. I then turned my attention to the glenoid. The proximal stump of the biceps tendon was excised, along with the labrum circumferentially around the glenoid. The 10 degree glenoid drill guide was then positioned on the glenoid, and the guidepin was then inserted in an appropriate position. The reamer was then inserted over the guidepin and an reamed to an appropriate depth. The central screw hole was drilled, and appropriate length 6.5mm central screw was selected. The baseplate was then implanted into place by tightening down the central screw. A peripheral 5mm nonlocking screw was placed superiorly first for additional compression of the baseplate, and then additional locking 5 mm peripheral screws were placed to complete fixation of the baseplate. Glenosphere was then impacted and secured. A trial humeral stem was inserted corresponding to the last reamer used. I then carefully set the rotation and 20 degrees of retroversion and marked the lateral fin on the humeral cortex to ensure proper rotational alignment of the final implant. I then carefully bonding agent the height of the humeral stem. I used the greater and lesser tuberosity fracture fragments as a guide to the appropriate height for the stem. Height alignment guide was then set and saved for final implant positioning. The humeral canal was irrigated and suctioned. Cement restrictor was placed down the humeral canal at an appropriate depth, and then bone cement was placed into the humeral canal and pressurized. I then placed the humeral stem in appropriate height and rotation, and the cement was then allowed to cure. I then trialed humeral polyethylene inserts to achieve proper stability of the shoulder. Trial spacer was then removed and the final spacer and polyethylene insert were implanted and secured to the humeral stem. The two FiberWire sutures in the greater tuberosity were placed around the humeral stem. The two FiberWire sutures in the lesser tuberosity were then placed around the greater tuberosity as well to act as a cerclage. I then reduced the shoulder and took it through full range of motion to ensure good stability and acceptable motion. I then proceeded with fixation of the tuberosity fracture fragments. The greater tuberosity was reduced and secured first, followed by the lesser tuberosity cerclage sutures. I then used the 2 sutures in the humeral stem and passed these in a [id number] fashion through the greater and lesser tuberosities to provide vertical stability of these tuberosity fragments. I then took the shoulder through range of motion to ensure that the tuberosity fragments moved as a unit with the humeral stem with good fracture reduction and stability. Wound was then copiously irrigated with sterile saline. Deep fascia was closed with 0 V-lock suture. Subcutaneous tissue was closed with 2-0 V-lock, and skin was closed with 3-0 V-lock. Skin was then sealed with Dermabond. Sterile dressings were then applied with a waterproof silver-impregnated dressing, and the arm was placed into a sling. The patient was awakened from anesthesia and taken to the Post Anesthesia Care Unit in stable condition. There were no immediate complications from the procedure. I was present and scrubbed for the entire procedure, with the exception of final skin closure and dressing application. Due to the complex nature of the procedure, the entire surgery was performed with the operational assistance of Minesh Macedo PA-C. The cancer genetics assistant, under direct supervision, was involved in the performance of all aspects of the surgical procedure including patient positioning, tissue retraction, hemostasis, wound closure, and dressing application. I attest to the content of the Intraoperative Record and any orders documented therein. Any exceptions are noted below.
--- NOTE | 2019-12-13 12:19 | Anesthesiology Progress Note ---
Date of Service December 13, 2019 Anesthesia Post Procedure Vital Signs Vital Signs: Temp Pulse Pulse Resp BP Pulse Ox 12/13/19 12:10 64 13 104/61 98 12/13/19 12:00 69 11 L 100/56 L 98 12/13/19 11:50 66 17 106/62 98 12/13/19 11:40 68 20 107/61 98 12/13/19 11:30 73 20 84/55 L 99 12/13/19 11:20 74 20 112/49 L 98 12/13/19 11:16 36.3 C L 80 18 80/46 L 95 12/13/19 05:44 37.2 C 59 L 22 130/73 97 Pain Intensity Right Shoulder: Pain Intensity: 0 Transfer of Care Handoff Completed per policy Notes Mental Status: alert / awake / arousable and participated in evaluation Patient Amnestic to Procedure: Yes Nausea / Vomiting: adequately controlled Pain: adequately controlled Airway Patency, RR, SpO2: stable & adequate BP & HR: stable & adequate Hydration State: stable & adequate Anesthetic Complications: no major complications apparent
[2019-12-13] MEDS ORDERED: ONDANSETRON INJ 2 MG/ML 2 ML VIAL IV PRN (12:57)
[2019-12-13] MEDS ORDERED: bisacodyL 10 MG SUPP PR PRN (12:57)
[2019-12-13] MEDS ORDERED: MAGNESIUM HYDROXIDE SUSP 30 ML UDC PO PRN (12:57)
[2019-12-13] MEDS ORDERED: NALOXONE HCL 0.4 MG/1 ML VIAL/CARP IV PRN (12:57)
[2019-12-13] MEDS ORDERED: KETOCONAZOLE 2% CR 15 GM TUBE EXT PRN (12:57)
[2019-12-13] MEDS ORDERED: ALBUTEROL HFA 8 GM INHALER INH PRN (12:57)
[2019-12-13] MEDS ORDERED: OXYCODONE HCL IR 5 MG TAB (IMMEDIATE RELEASE) PO PRN (12:57)
--- NOTE | 2019-12-13 13:19 | XRay Report ---
XR shoulder RT 1V CLINICAL HISTORY: Postoperative examination COMPARISON: 11/22/2019 DISCUSSION: There are postsurgical changes of a reverse total right shoulder arthroplasty. There is n o dislocation. A humeral neck fractures again visualized. There is air within the soft tissues consis tent with recent surgery. IMPRESSION: Postsurgical changes of a reverse total right shoulder arthroplasty ACT 112: Negative or not required by law. Electronically signed by: Aryan Soriano M.D. 12/13/2019 1:18 PM
[2019-12-13] MEDS: SODIUM CHLORIDE 0.9% 1000ML 1,000 ML IV SCH ×2 (13:43→21:40)
[2019-12-13] MEDS: CEFAZOLIN 2000MG 2,000 MG/15 ML SYR IV SCH (15:31)
[2019-12-13] MEDS: IBUPROFEN 600 MG TAB PO SCH (18:42)
[2019-12-13] MEDS ORDERED: SENNA 8.6 MG TAB PO SCH (21:00)
[2019-12-13] MEDS ORDERED: OLANZAPINE 2.5 MG TAB PO SCH (21:00)
[2019-12-13] MEDS ORDERED: LEVOTHYROXINE SODIUM 50 MCG TABLET PO SCH (21:00)
[2019-12-13] MEDS ORDERED: ASPIRIN 81 MG ECTAB PO SCH (21:00)
[2019-12-13] MEDS: DOCUSATE SODIUM 100 MG CAP PO SCH (21:05)
[2019-12-13] MEDS: ACETAMINOPHEN 500 MG TAB PO SCH (21:07)
[2019-12-13] MEDS: DESMOPRESSIN ACETATE 0.1 MG TAB PO SCH (21:11)
[2019-12-13] MEDS: OLMESARTAN MEDOXOMIL 40 MG TAB PO SCH (21:11)
[2019-12-13] MEDS: ATENOLOL 25 MG TABLET PO SCH (21:11)
[2019-12-14] MEDS: CEFAZOLIN 2000MG 2,000 MG/15 ML SYR IV SCH (00:45)
[2019-12-14] MEDS: IBUPROFEN 600 MG TAB PO SCH ×3 (00:52→12:09)
[2019-12-14] MEDS: ACETAMINOPHEN 500 MG TAB PO SCH ×2 (02:47→08:50)
--- NOTE | 2019-12-14 08:08 | Anesthesiology Progress Note ---
Date of Service December 14, 2019 Anesthesia Post Procedure Vital Signs Vital Signs: Temp Pulse Pulse Resp BP Pulse Ox 12/14/19 03:55 36.9 C 61 18 103/57 L 94 12/13/19 22:02 36.6 C 63 16 115/68 93 12/13/19 21:10 71 148/75 H 12/13/19 20:08 36.7 C 74 16 133/67 95 12/13/19 15:43 36.3 C L 65 16 157/79 H 99 12/13/19 13:59 64 16 114/69 96 12/13/19 13:14 36.4 C L 64 16 103/64 96 12/13/19 12:29 62 12 112/60 98 12/13/19 12:20 36.4 C L 64 12 107/60 98 12/13/19 12:10 64 13 104/61 98 12/13/19 12:00 69 11 L 100/56 L 98 12/13/19 11:50 66 17 106/62 98 12/13/19 11:40 68 20 107/61 98 12/13/19 11:30 73 20 84/55 L 99 12/13/19 11:20 74 20 112/49 L 98 12/13/19 11:16 36.3 C L 80 18 80/46 L 95 Pain Intensity Right Shoulder: Pain Intensity: 0 Notes Mental Status: alert / awake / arousable and participated in evaluation Patient Amnestic to Procedure: Yes Nausea / Vomiting: adequately controlled Pain: adequately controlled Airway Patency, RR, SpO2: stable & adequate BP & HR: stable & adequate Hydration State: stable & adequate Anesthetic Complications: no major complications apparent and Pt Satisfied with anesthetic care
[2019-12-14] MEDS: DOCUSATE SODIUM 100 MG CAP PO SCH (08:49)
[2019-12-14] MEDS: DESMOPRESSIN ACETATE 0.1 MG TAB PO SCH (08:50)
[2019-12-14] MEDS: OLMESARTAN MEDOXOMIL 40 MG TAB PO SCH (08:51)
[2019-12-14] MEDS: ATENOLOL 25 MG TABLET PO SCH (08:52)
[2019-12-14] MEDS ORDERED: DABIGATRAN ETEXILATE 75 MG CAP PO SCH (09:00)
[2019-12-14] MEDS ORDERED: predniSONE 5 MG TAB PO SCH (09:00)
[2019-12-14] MEDS ORDERED: VITAMIN B COMPLEX TAB PO SCH (09:00)
[2019-12-14] MEDS ORDERED: MULTIVITAMIN TAB PO SCH ×2 (09:00)
--- NOTE | 2019-12-14 09:58 | Orthopedic Progress Note ---
Date of Service December 14, 2019 Assessment & Plan (1) Proximal humerus fracture: Postop day 1 status post right reverse TSA PT/OT protocols. Pain management with current nerve blocks. Patient unable to tolerate any narcotics and will be taking acetaminophen and anti-inflammatories. We will see how he progresses with PT and how his pain control is. Subjective Postop day 1 Patient is currently sitting at the bedside. He has no overt complaints. He states his nerve block is starting to slowly wear off. He has mild pain that he rates at a 1-2 out of 10 along the elbow going down the forearm. We discussed that it might be sling placement as well which can be adjusted. He states that he has some residual numbness in a few of his fingers. No overt pain in the shoulder at this time. Denies any shortness of breath, chest pain, l ightheadedness. Physical Exam Physical Exam: Silverlon dressing is clean, dry, intact. Minimal drainage in the dressing window. He has good range of motion of his right hand and fingers. He has numbness in the fifth finger and partially in the fourth. No numbness in the remaining fingers and thumb. Good range of motion of his wrist with flexion and extension. Results & Data Vital Signs (Past 12 Hours) Vital Signs Temp Pulse Pulse Resp BP Pulse Ox 12/14/19 07:25 36.8 C 62 18 102/58 L 97 12/14/19 03:55 36.9 C 61 18 103/57 L 94 12/13/19 22:02 36.6 C 63 16 115/68 93
[2019-12-14 10:25] LABS: Hematocrit (blood only) 37.4 % (42-52); Hemoglobin 12.1 g/dL (14.0-18.0); Mean Corpuscular Hemoglobin 29.9 pg (25-34); Mean Corpuscular Hgb Conc 32.4 g/dL (32-36); Mean Corpuscular Volume 92.3 fL (80-100); Mean Platelet Volume 10.6 fL (7.4-10.4); Platelet Count 269 K/uL (130-400); RDW Coefficient of Variation 13.2 % (11.5-14.5); RDW Standard Deviation 44.3 fL (36.4-46.3); Red Blood Count 4.05 M/uL (4.7-6.1); White Blood Count 19.53 K/uL (4.8-10.8)
[2019-12-14 10:55] LABS: BUN Creatinine Ratio 19.5 (10-20); Calcium 8.4 mg/dl (8.5-10.1); Creatinine Clr Calc Pharmacy 40.7 ml/min; Est GFR (African American) 40.2; Est GFR (Non-African American) 34.7; Potassium 4.6 mmol/L (3.5-5.1)
[2019-12-17] MEDS ORDERED: ERGOCALCIFEROL 50,000 UNITS CAP PO SCH (09:00)
--- NOTE | 2019-12-17 17:02 | Discharge Summary ---
Date of Service December 17, 2019 Admission HPI Per Admitting Provider Mr. Quesada is a 74-year-old [id number] male who returns today for follow-up of his right proximal humerus fracture sustained after a ground-level fall on November 22. I saw him in the hospital as a consultation for this. This was a severely comminuted but minimally displaced proximal humerus fracture with displacement of the greater and lesser tuberosity. He has an avulsion fracture fragment from the tuberosity that is at the level of the glenohumeral joint. We discussed nonoperative treatment, ORIF, and a reverse total shoulder arthroplasty as treatment options for this. He was comfortable and therefore discharged from the hospital, and returns today for further discussion of this problem. Principal Diagnosis Right shoulder comminuted proximal humerus fracture Discharge Data Allergies Allergy/AdvReac Type Severity Reaction Status Date / Time fluticasone [From Flonase] Allergy Intermediate Flushing, Verified 12/13/19 05:38 pruritus Consultations 12/13/19 12:57 Consult Case Management - Discharge Planning Routine Procedures Performed Operation Date: 12/13/19 07:15 Actual Procedures p Right Reverse Total Shoulder Arthroplasty(Right) - Remigio Donovan M.D. Ordered Studies 12/13/19 05:00 US - OR guided needle placemen Routine Hospital Course (1) Proximal humerus fracture: Mr. Quesada is a 74-year-old male with a severely comminuted and di splaced right proximal humerus fracture. He elected for a reverse total shoulder arthroplasty as treatment for this. This was completed on December 13. He was then transferred up to the orthopedic surgery floor in stable condition. Perioperative antibiotic coverage was initiated with Ancef and continued for 24 hours. On postoperative day 1, his pain was well-controlled on oral medications, and he was determined to be safe and ready for discharge to home. Total Time Total Time Spent Total Time Spent (In Minutes): 10 Discharge Plan Discharge Items Patient Disposition: Home - Self-Care Reason For Visit: Right Proximal Humerus Fx Discharge Diagnosis: Right proximal humerus fracture Activity: Per Instructions section Non-emergency contact: Surgeon Call non-emergency contact if: your pain is not controlled, your temperature is above 101.5, your wound has increased redness and your wound has increased drainage Follow-up/Referrals: Bravo Rosenbaum MD [Primary Care Provider] - Remigio Donovan M.D. [Physician] - Diet: Regular Addtl Attending Provider Instructions: Things to Watch Out For -Go to the Emergency Room if you have sudden onset of nausea, vomiting, chest pain, shortness of breath, or uncontrollable pain. -Call the clinic or go to the Emergency Room if you have a sudden increase in the amount of wound drainage or the drainage becomes thick, yellow or green, or foul-smelling. -For routine questions, call the clinic during regular business hours (8am-5pm). For urgent issues after regular business hours, you may call the clinic to be connected to the on-call physician. Dressings -A special waterproof, silver-impregnated dressing was placed on your shoulder. Keep this dressing in place for 1 week after surgery. You may shower with the waterproof dressing in place, but do not soak the dressing in the bathtub or pool. -One week after surgery, you may remove the waterproof dressing. You may continue to shower, and let water run BRIEFLY over the incision, but do not soak the incision in the bathtub or pool for 2 weeks. You may also gently clean the incision with mild soap and water; pat the incision dry after cleaning-do not rub the incision. Apply a new dressing daily thereafter. Shoulder Exercises -Keep your operative shoulder in the sling for comfort, except as detailed below. -You should come out of the sling 4-5 times a day for passive pendulum exercises: lean over and swing your arm in a circular pattern. -You should also do active-assisted forward flexion exercises: use your opposite hand to lift your operative arm forward to 90 degrees. -Do not use your arm to push yourself up out of bed or up from a seated position. -Do not flex your elbow (curl motion) or supinate your forearm (rotating palm up) against resistance. -Do not externally rotate your arm past neutral rotation (forearm pointed straight out from your body) or internally rotate your arm (pull your forearm towards your body) against resistance. Do not abduct your shoulder past 90 degrees (bring your arm out to the side past shoulder level). Ice Pack -You may use an ice pack for pain relief. You should use it 20-30 minutes at a time. Place a towel between the ice pack and your skin to prevent frostbite. -You should use the ice pack fairly regularly for the first 1-2 weeks after surgery to help reduce pain and inflammation. -About 2 weeks after your surgery, you should start using heat to loosen up your shoulder prior to doing your stretching exercises, then use the cooling sleeve after your exercises are complete to reduce swelling and pain. Pain Medicines -You have been prescribed an anti-inflammatory (Motrin/ibuprofen) and a non- narcotic pain medicine (Tylenol/acetaminophen). These are your primary pain medications. Take them each every 6 hours as instructed. It is recommended that you stagger these medicines every 3 hours (i.e. take ibuprofen at 8:00 am, then acetaminophen at 11:00 am, then ibuprofen at 2:00 pm, etc) -DO NOT take any additional anti-inflammatories (Advil, Aleve/naproxen, Mobic/meloxicam, Celebrex) or any additional Tylenol/acetaminophen products with these prescribed medications. -You have also been prescribed an additional narcotic pain medication (oxycodone). Take this medicine ONLY for breakthrough pain not controlled by the ibuprofen and acetaminophen. -Do not drive or operate heavy machinery while taking the narcotic medication. -Common side effects of narcotic pain medicines include itching, nausea, constipation, and feeling ``loopy. However, if you develop a rash or hives, stop taking the medicine and call the clinic. If you develop swelling in your throat or difficulty breathing, go to the Emergency Room or call 911 IMMEDIATELY. -You may take over the counter stool softeners if needed for constipation. Pending Studies at Discharge: No Stand-Alone Forms: My [facility] Medications and DC Order Prescriptions: New acetaminophen 500 mg Tablet 500 mg PO Q6H 14 Days Qty: 56 RF: 0 ibuprofen 600 mg Tablet 600 mg PO Q6H 14 Days Qty: 56 RF: 0 Continued olanzapine [Zyprexa] 2.5 mg Tablet 1.25 mg PO HS RF: 0 aspirin [Aspir-81] 81 mg Tablet,Delayed Release (Dr/Ec) 81 mg PO HS RF: 0 desmopressin [DDAVP] 0.1 mg Tablet 0.025 mg PO Q12 RF: 0 olmesartan [Benicar] 40 mg Tablet 40 mg PO BID RF: 0 levothyroxine 50 mcg Capsule 50 mcg PO HS RF: 0 Pradaxa 75 mg Capsule 75 mg PO DAILY RF: 0 atenolol 25 mg Tablet 6.25 mg PO BID RF: 0 albuterol sulfate 90 mcg/actuation Hfa Aerosol Inhaler 2 puff Inhalation QID PRN (Reason: Cough) RF: 0 multivitamin Tablet 1 tab PO Q OTHER DAY RF: 0 prednisone 5 mg Tablet 5 mg PO DAILY RF: 0 tetracycline 250 mg capsule 250 mg PO UD RF: 0 vitamin B complex Tablet 1 tab PO Q OTHER DAY RF: 0 ergocalciferol (vitamin D2) [Vitamin D2] 50,000 unit capsule 50,000 unit PO .[id number] RF: 0 ketoconazole 2 % cream 1 applic TOPICAL BID PRN (Reason: groin) RF: 0 ondansetron 4 mg Tablet,Disintegrating 4 mg PO Q8H PRN (Reason: Nausea) RF: 0 sodium chloride [[place] Nasal] 0.65 % Aerosol,[place] 2 spray INTRANASAL .Q2HR PRN (Reason: Nasal Congestion) RF: 0 fluconazole 50 mg tablet 50 mg PO UD PRN (Reason: ..) RF: 0 cefdinir 300 mg Capsule 300 mg PO UD RF: 0 Discharge Orders: Discharge Order (Routine); Ordered 12/14/19 Ordered By: Jose Miller/Other Patient Handouts: Hyperglycemia, Hypoglycemia, Diabetes Type 2 Oral Meds, Diabetes Healthy Meals, Diabetes Exercise Benefits, Diabetes Living Life, Diabetes Manage A1C Test Admission Data Admit Date/Time: 12/13/19 11:25 Attending Provider: Remigio Donovan Admit Provider: Remigio Donovan Primary Care Provider: Bravo Rosenbaum Other Interventions: Discharge Summary Assessment (RN) Last Done: 12/14/19 13:01 [place] Date/Time DO NOT enter until pt leaves facility: 12/14/19 14:03
== END 2019-12-14 14:03 | disposition home or self-care (01) | DRG 483 ==
LOC: ASU 05:05 → 3E 11:25